=== PATIENT | male | born 1935 | race Caucasian/White ===

== ENCOUNTER 2017-04-15 10:00 | Outpatient (RCR) | payer MEDICARE, SELFPAY ==
[2017-03-31 08:49] VITALS: BP 131/63; PULSE 95; RESP 18; TEMP 36.8; BMI 48.6
--- NOTE | 2017-03-31 10:12 | PCM.WC.HP ---
(1) Pressure ulcer, heel, right, unstageable Status: Chronic Current Visit: Yes Code(s): L89.610 - Pressure ulcer of right heel, unstageable (2) Wound of left leg Status: Acute Current Visit: Yes Qualifiers: Encounter type: initial encounter Qualified Code(s): S81.802A - Unspecified open wound, left lower leg, initial encounter Code(s): S81.802A - Unspecified open wound, left lower leg, initial encounter (3) Diabetes mellitus Status: Chronic Current Visit: Yes Qualifiers: Diabetes mellitus type: type 2 Diabetes mellitus complication status: with circulatory complication Diabetes mellitus complication detail: with peripheral angiopathy with gangrene Code(s): E11.9 - Type 2 diabetes mellitus without complications (4) Hypertension Status: Chronic Current Visit: No Qualifiers: Hypertension type: essential hypertension Qualified Code(s): I10 - Essential (primary) hypertension Code(s): I10 - Essential (primary) hypertension (5) Physical deconditioning Status: Chronic Current Visit: Yes Code(s): R53.81 - Other malaise (6) A-fib Status: Chronic Current Visit: No Qualifiers: Atrial fibrillation type: chronic Qualified Code(s): I48.2 - Chronic atrial fibrillation Code(s): I48.91 - Unspecified atrial fibrillation (7) CAD (coronary artery disease) Status: Chronic Current Visit: No Qualifiers: Coronary Disease-Associated Artery/Lesion type: [place] artery [place] vs. transplanted heart: [place] heart Code(s): I25.10 - Atherosclerotic heart disease of [place] coronary artery without angina pectoris (8) PAD (peripheral artery disease) Status: Chronic Current Visit: Yes Code(s): I73.9 - Peripheral vascular disease, unspecified (9) Hyperlipidemia Status: Chronic Current Visit: No Code(s): E78.5 - Hyperlipidemia, unspecified (10) History of prostate cancer Status: Chronic Current Visit: No Code(s): Z85.46 - Personal history of malignant neoplasm of prostate (11) History of SD (myocardial infarction) Status: Chronic Current Visit: No Code(s): I25.2 - Old myocardial infarction History of Present Illness Date of Service: 03/31/17 Chief Complaint: Ulcerations/wounds of both lower extremities History of Wound: This is an 81-year-old male who is a resident of [facility] in [place], [place]. The patient is deconditioned, and nonambulatory. He is said to have a good appetite. He sleeps on a flat mattress at night. He has a large, necrotic pressure ulceration on the right heel, which has been present for approximately 3 months at the time of his initial evaluation. Also has a traumatic wound on the left anterior tibial surface, said to be present for approximately 3 weeks. He is currently taking Keflex 500 mg p.o. 3 times daily as prescribed by his primary care physician relative to an eye infection. The patient has undergone a battery of diagnostic tests recently. Laboratory studies were performed on February 17, 2017, with results as follows: White blood count 7.4, hemoglobin 11.7, crit 36.4, platelets 397,000, glucose 112, BUN 13, creatinine 0.64, calcium 8.7, sodium 139, potassium 4.3, chloride 103. Radiographs of the right heel, performed on March 27, 2017, revealed findings are concerning for developing osteomyelitis in the posterior inferior calcaneus subjacent to the location of the soft tissue defect and moderate soft tissue swelling. A contrast-enhanced MRI was recommended, but has not been performed. Past Medical History Past Medical History: Chronic Problems Pressure ulcer, heel, right, unstageable (Chronic) Diabetes mellitus (Chronic) Hypertension (Chronic) Physical deconditioning (Chronic) A-fib (Chronic) CAD (coronary artery disease) (Chronic) PAD (peripheral artery disease) (Chronic) Hyperlipidemia (Chronic) History of prostate cancer (Chronic) History of SD (myocardial infarction) (Chronic) Past Medical History: Patient has a history of diabetes mellitus, coronary artery disease with prior myocardial infarction, hypertension, atrial fibrillation, peripheral arterial occlusive disease, lipidemia, and prostate cancer. His history is negative for congestive heart failure, cerebrovascular accident, renal disease, pulmonary disease, and thyroid disease. Surgical History: - - The patient has previously undergone coronary revascularization, right total hip replacement, radiation for prostate cancer, and right lower extremity bypass revascularization Home Medications: Ambulatory Orders Medication Instructions Recorded Acidophilus 1 capsule PO TID 03/31/17 Aspirin 81 mg PO DAILY 03/31/17 Atorvastatin Calcium 20 mg PO DAILY 03/31/17 Calcium 500-Vit D3 200 Tablet 1 mg PO BID 03/31/17 Cholecalciferol (VIT D3) 2,000 iu PO DAILY 03/31/17 Colace 100 mg PO DAILY 03/31/17 Coumadin 5 mg PO DAILY 03/31/17 Glimepiride 2 mg PO DAILY 03/31/17 Keflex 500 mg PO TID 03/31/17 Metoprolol Succinate 25 mg PO DAILY 03/31/17 Milk Of Magnesia 400 mg PO PRN PRN 03/31/17 Multiple Vitamins 1 tablet PO DAILY 03/31/17 Oxybutynin Chloride 10 mg PO DAILY 03/31/17 Systane Gel Eye Drops 1 drop OPHTHALMIC 4X/DAY 03/31/17 Tamsulosin HCl 0.4 mg PO DAILY 03/31/17 Tylenol 650 mg PO Q4H PRN 03/31/17 Vigamox Ophth 1 drop OPHTHALMIC 4X/DAY 03/31/17 - Family History Maternal - - Patient's father at the age of 91 with a history of prostate cancer and myocardial infarction. Patient's mother at age of 88 with a history of pancreatic cancer. Social History: Patient denies the use of alcohol and tobacco products. Is , but his suffers from Alzheimer's disease. He resides at [facility] in [place], [place]. Lives: Snf Smoking Status: Former smoker Tobacco Use: Non-smoker Alcohol: None Drugs: None Review of Systems Constitutional: Denies: Chills, Fever, Weight Change Eyes: Denies: Pain, Vision Change HEENT: Denies: Difficulty Hearing, Difficulty Swallowing, Sinus Congestion Cardiovascular: Denies: Chest Pain, Palpitations Respiratory: Denies: Cough, Shortness of Breath Gastrointestinal: Denies: Diarrhea, Nausea, Vomiting Genitourinary: Denies: Dysuria, Hematuria Endocrine: Denies: Heat/ Cold Intolerance, Polydipsia, Polyuria Hematologic/ Lymphatic: Denies: Easy Bruising, Easy Bleeding - Physical Exam Vital Signs Temp Pulse Resp BP 98.3 F 95 18 131/63 H 03/31/17 08:49 03/31/17 08:49 03/31/17 08:49 03/31/17 08:49 General: Alert, Oriented x3, Cooperative, No apparent distress, Well developed, Well nourished, - - She appears somewhat deconditioned and weak HEENT: Atraumatic, PERRLA, EOMI, Normocephalic Oral: Moist Mucosa, No Gingival or Mucosal Lesions/ Ulcerations, - - She wears upper dentures Neck: Supple, No JVD, Negative Carotid Bruits, Negative Hepatojugular Reflux, No Nodes, No Nuchal Rigidity, Trachea Midline Lungs: Clear to auscultation, Normal air movement, No rhonchi, No wheeze, No rales Cardiovascular: Regular rate, Regular Rhythm, Normal S1, Normal S2, No murmurs, No Ectopic Activity Abdomen: Soft, Non Tender, Non-Distended Extremities: No clubbing, No cyanosis, No edema, No Calf Tenderness, - - Faint hyperpigmentation is noted in the distal lower extremities bilaterally. There is no significant swelling or edema on either side. A large necrotic pressure ulceration is noted on the right heel. Options are documented elsewhere. There is slight associated erythema. Aerobic and anaerobic cultures have been obtained by swab. There is also a superficial wound on the left anterior tibial surface, which is pink and healthy in appearance. At this site, there is no sign of infection or cellulitis. Dimensions are documented elsewhere. Wound Measurements and Assessment - Nurse 1 - General Ulcer Measurement Start: 03/31/17 08:47 Freq: Status: Active Protocol: Activity Type Activity Date Activity User E-Sign Co-Sign Detail Recorded Client Recorded Date Recorded By Document 03/31/17 08:49 DL [id number] 03/31/17 09:04 DL 03/31/17 08:49 Wound Center Nurse 1 [Ulcer Assessment Protocol: WC.WD.LOC] #2 R Heel -Combined with other wound No -Current Size (cm) - Length 4.5 -Current Size (cm) - Width 6 -Current Size (cm) - Depth 0.1 -Total Square Cm 27.0 -Photo Taken Yes -Epithelialization None Present -Tunneling No -Undermining/Tunneling No -Circular Undermining No -Classification - Thickness Unclassifiable (Eschar Covered ) -Classification - Pressure Ulcer Unstageable -Exudate Amt Small (1-33%) -Exudate Type Serosanguineous -Wound Margin Distinct, Outline Attached -Granulation Amt Small (1-33%) -Granulation Quality [place] -Slough/Fibrin Yes -Necrosis Amt Large (67-100%) -Necrotic Tissue Type Eschar -Structure Exposed N/A -Texture (Abi-wound Skin Appearance) Localized Edema -Moisture (Abi-wound Skin Appearance Maceration ) Dry/Scaly -Color (Abi-wound Skin Appearance) Erythema Hemosiderin Staining -Temperature (Abi-wound Skin No Abnormality Appearance) (Pt Warm) -Tenderness on Palpation (Abi-wound Yes Skin Appearance) -Ulcer Cleansing Rinsed/ Irrigated with Saline -Foul Odor after Cleansing Yes -Anesthetic Used 4% Lidocaine Solution #1 L [place] -Current Size (cm) - Length 2 -Current Size (cm) - Width 1.7 -Current Size (cm) - Depth 0.1 -Total Square Cm 3.4 -Photo Taken Yes -Epithelialization Small 1-33% -Tunneling No -Undermining/Tunneling No -Circular Undermining No -Classification - Thickness Full Thickness without Exposed Support Structure -Exudate Amt Small (1-33%) -Exudate Type Serosanguineous -Wound Margin Distinct, Outline Attached -Granulation Amt Medium (34-66%) -Granulation Quality Red -Necrosis Amt Medium (34-66%) -Necrotic Tissue Type Adherent Slough -Structure Exposed N/A -Texture (Abi-wound Skin Appearance) No Abnormality -Moisture (Abi-wound Skin Appearance No Abnormality ) -Color (Abi-wound Skin Appearance) Erythema Hemosiderin Staining -Temperature (Abi-wound Skin No Abnormality Appearance) (Pt Warm) -Tenderness on Palpation (Abi-wound No Skin Appearance) -Ulcer Cleansing Wound Cleanser -Foul Odor after Cleansing No -Anesthetic Used 4% Lidocaine Solution [Edema Assessment] -Lower Limb Edema Present No -Right Calf (cm) 32.5 -Right Ankle (cm) 20.5 -Left Calf (cm) 32 -Point of Measurement (cm from the 19 medial instep) Musculoskeletal: Muscle Wasting Neurological: Cranial nerves II-XII grossly intact, Neuro grossly intact Psych/Mental Status: Normal Affect, Appropriate, Alert and oriented to time, place, person, mood and affect Debridement Note Laterality: Right - Heel Type of Debridement: Excisional debridement Anesthesia Used: 4% Lidocaine Solution Depth: Down to and including healthy tissue, in the subcutaneous layer Percentage of wound debrided: 100 Instrument Used: #11 blade, Forceps Tissue Removed: Necrotic eschar Severity: Fat Layer Exposed Amount of bleeding with debridement: None Patient tolerated procedure well Attention was directed to the large necrotic eschar heel. Usually, using an 11 scalpel blade, the eschar was scored in anticipation of the use of collagenase Santyl topically. Thereafter, approximately half of the large eschar was excised using an 11 scalpel blade and forceps. Under the eschar was relatively healthy pink tissue, though no bleeding was encountered, suggesting ischemia. Assessment/Plan Active Problems Pressure ulcer, heel, right, unstageable (Chronic) Wound of left leg (Acute) Diabetes mellitus (Chronic) Physical deconditioning (Chronic) PAD (peripheral artery disease) (Chronic) Assessment: This is an 81-year-old male resident of [facility] in [place], [place]. He is severely deconditioned, and nonambulatory. He has an ulceration on the right heel, which appears pressurerelated. It is large and necrotic. A significant amount of the necrotic tissue was excised in the wound healing center today. Wound on the left anterior tibial surface appears to be superficial, and relatively healthy. The patient has a history of peripheral arterial occlusive disease, likely to be an issue relative to wound healing potential. This is to be evaluated further. Plan: Cultures have been obtained relative to the patient's right heel ulceration. We will await the results of aerobic and anaerobic swab cultures. Offloading measures are to be implemented, in particular with respect to the right heel ulceration, which appears to be pressure-related. A padded boot is to be used. Patient has been advised to optimize his nutrition, and his appetite is said to be good. Supplements have been recommended. A noninvasive lower extremity arterial study will be obtained in the near future, to assess the status of the patient's lower extremity arterial perfusion. Routine laboratory studies will be also obtained, a nutritional labs, which have not previously been obtained. Laboratory results will be reviewed once available. In light of the findings on recent radiographs, suggesting possible osteomyelitis of the calcaneus, we are to seek consultation with Dr. Castaneda, roll cleaner. Patient is to return on a weekly basis routine wound management. Santyl is to be used topically relative to the right heel ulceration, as well as offloading measures. Collagen hydrogel is to be used topically relative to the left lower extremity wound. Optimization of the patient's diabetes mellitus has been recommended. Influenza vaccine was not administered today. The patient is not a smoker. The patient's weight is 154 pounds. He stands 5 feet 7 inches tall. His BMI is 24.1, which is normal.
--- NOTE | 2017-03-31 10:22 | HP.PCM_ITS ---
(1) Pressure ulcer, heel, right, unstageable Status: Chronic Current Visit: Yes Code(s): L89.610 - Pressure ulcer of right heel, unstageable (2) Wound of left leg Status: Acute Current Visit: Yes Qualifiers: Encounter type: initial encounter Qualified Code(s): S81.802A - Unspecified open wound, left lower leg, initial encounter Code(s): S81.802A - Unspecified open wound, left lower leg, initial encounter (3) Diabetes mellitus Status: Chronic Current Visit: Yes Qualifiers: Diabetes mellitus type: type 2 Diabetes mellitus complication status: with circulatory complication Diabetes mellitus complication detail: with peripheral angiopathy with gangrene Code(s): E11.9 - Type 2 diabetes mellitus without complications (4) Hypertension Status: Chronic Current Visit: No Qualifiers: Hypertension type: essential hypertension Qualified Code(s): I10 - Essential (primary) hypertension Code(s): I10 - Essential (primary) hypertension (5) Physical deconditioning Status: Chronic Current Visit: Yes Code(s): R53.81 - Other malaise (6) A-fib Status: Chronic Current Visit: No Qualifiers: Atrial fibrillation type: chronic Qualified Code(s): I48.2 - Chronic atrial fibrillation Code(s): I48.91 - Unspecified atrial fibrillation (7) CAD (coronary artery disease) Status: Chronic Current Visit: No Qualifiers: Coronary Disease-Associated Artery/Lesion type: [place] artery [place] vs. transplanted heart: [place] heart Code(s): I25.10 - Atherosclerotic heart disease of [place] coronary artery without angina pectoris (8) PAD (peripheral artery disease) Status: Chronic Current Visit: Yes Code(s): I73.9 - Peripheral vascular disease, unspecified (9) Hyperlipidemia Status: Chronic Current Visit: No Code(s): E78.5 - Hyperlipidemia, unspecified (10) History of prostate cancer Status: Chronic Current Visit: No Code(s): Z85.46 - Personal history of malignant neoplasm of prostate (11) History of [place] (myocardial infarction) Status: Chronic Current Visit: No Code(s): I25.2 - Old myocardial infarction History of Present Illness Date of Service: 03/31/17 Chief Complaint: Ulcerations/wounds of both lower extremities History of Wound: This is an 81-year-old male who is a resident of [facility] in [place], [place]. The patient is deconditioned, and nonambulatory. He is said to have a good appetite. He sleeps on a flat mattress at night. He has a large, necrotic pressure ulceration on the right heel, which has been present for approximately 3 months at the time of his initial evaluation. Also has a traumatic wound on the left anterior tibial surface, said to be present for approximately 3 weeks. He is currently taking Keflex 500 mg p.o. 3 times daily as prescribed by his primary care physician relative to an eye infection. The patient has undergone a battery of diagnostic tests recently. Laboratory studies were performed on February 17, 2017 , with results as follows: White blood count 7.4, hemoglobin 11.7, crit 36.4, platelets 397,000, glucose 112, BUN 13, creatinine 0.64, calcium 8.7, sodium 139 , potassium 4.3, chloride 103. Radiographs of the right heel, performed on March 27, 2017, revealed findings are concerning for developing osteomyelitis in the posterior inferior calcaneus subjacent to the location of the soft tissue defect and moderate soft tissue swelling. A contrast-enhanced MRI was recommended, but has not been performed. Past Medical History Past Medical History: Chronic Problems Pressure ulcer, heel, right, unstageable (Chronic) Diabetes mellitus (Chronic) Hypertension (Chronic) Physical deconditioning (Chronic) A-fib (Chronic) CAD (coronary artery disease) (Chronic) PAD (peripheral artery disease) (Chronic) Hyperlipidemia (Chronic) History of prostate cancer (Chronic) History of [place] (myocardial infarction) (Chronic) Past Medical History: Patient has a history of diabetes mellitus, coronary artery disease with prior myocardial infarction, hypertension, atrial fibrillation, peripheral arterial occlusive disease, lipidemia, and prostate cancer. His history is negative for congestive heart failure, cerebrovascular accident, renal disease, pulmonary disease, and thyroid disease. Surgical History: - - The patient has previously undergone coronary revascularization, right total hip replacement, radiation for prostate cancer, and right lower extremity bypass revascularization Home Medications: Ambulatory Orders Medication Instructions Recorded Acidophilus 1 capsule PO TID 03/31/17 Aspirin 81 mg PO DAILY 03/31/17 Atorvastatin Calcium 20 mg PO DAILY 03/31/17 Calcium 500-Vit D3 200 Tablet 1 mg PO BID 03/31/17 Cholecalciferol (VIT D3) 2,000 iu PO DAILY 03/31/17 Colace 100 mg PO DAILY 03/31/17 Coumadin 5 mg PO DAILY 03/31/17 Glimepiride 2 mg PO DAILY 03/31/17 Keflex 500 mg PO TID 03/31/17 Metoprolol Succinate 25 mg PO DAILY 03/31/17 Milk Of Magnesia 400 mg PO PRN PRN 03/31/17 Multiple Vitamins 1 tablet PO DAILY 03/31/17 Oxybutynin Chloride 10 mg PO DAILY 03/31/17 Systane Gel Eye Drops 1 drop OPHTHALMIC 4X/DAY 03/31/17 Tamsulosin HCl 0.4 mg PO DAILY 03/31/17 Tylenol 650 mg PO Q4H PRN 03/31/17 Vigamox Ophth 1 drop OPHTHALMIC 4X/DAY 03/31/17 - Family History Maternal - - Patient's father at the age of 91 with a history of prostate cancer and myocardial infarction. Patient's mother at age of 88 with a history of pancreatic cancer. Social History: Patient denies the use of alcohol and tobacco products. Is , but his suffers from Alzheimer's disease. He resides at [facility] in [place], [place]. Lives: [facility] Smoking Status: Former smoker Tobacco Use: Non-smoker Alcohol: None Drugs: None Review of Systems Constitutional: Denies: Chills, Fever, Weight Change Eyes: Denies: Pain, Vision Change HEENT: Denies: Difficulty Hearing, Difficulty Swallowing, Sinus Congestion Cardiovascular: Denies: Chest Pain, Palpitations Respiratory: Denies: Cough, Shortness of Breath Gastrointestinal: Denies: Diarrhea, Nausea, Vomiting Genitourinary: Denies: Dysuria, Hematuria Endocrine: Denies: Heat/ Cold Intolerance, Polydipsia, Polyuria Hematologic/ Lymphatic: Denies: Easy Bruising, Easy Bleeding - Physical Exam Vital Signs Temp Pulse Resp BP 98.3 F 95 18 131/63 H 03/31/17 08:49 03/31/17 08:49 03/31/17 08:49 03/31/17 08:49 General: Alert, Oriented x3, Cooperative, No apparent distress, Well developed, Well nourished, - - She appears somewhat deconditioned and weak HEENT: Atraumatic, PERRLA, EOMI, Normocephalic Oral: Moist Mucosa, No Gingival or Mucosal Lesions/ Ulcerations, - - She wears upper dentures Neck: Supple, No JVD, Negative Carotid Bruits, Negative Hepatojugular Reflux, No Nodes, No Nuchal Rigidity, Trachea Midline Lungs: Clear to auscultation, Normal air movement, No rhonchi, No wheeze, No rales Cardiovascular: Regular rate, Regular Rhythm, Normal S1, Normal S2, No murmurs, No Ectopic Activity Abdomen: Soft, Non Tender, Non-Distended Extremities: No clubbing, No cyanosis, No edema, No Calf Tenderness, - - Faint hyperpigmentation is noted in the distal lower extremities bilaterally. There is no significant swelling or edema on either side. A large necrotic pressure ulceration is noted on the right heel. Options are documented elsewhere. There is slight associated erythema. Aerobic and anaerobic cultures have been obtained by swab. There is also a superficial wound on the left anterior tibial surface, which is pink and healthy in appearance. At this site, there is no sign of infection or cellulitis. Dimensions are documented elsewhere. Wound Measurements and Assessment - Nurse 1 - General Ulcer Measurement Start: 03/31/17 08:47 Freq: Status: Active Protocol: Activity Type Activity Date Activity User E-Sign Co-Sign Detail Recorded Client Recorded Date Recorded By Document 03/31/17 08:49 DL [id number] 03/31/17 09:04 DL 03/31/17 08:49 Wound Center Nurse 1 [Ulcer Assessment Protocol: WC.WD.LOC] #2 R Heel -Combined with other wound No -Current Size (cm) - Length 4.5 -Current Size (cm) - Width 6 -Current Size (cm) - Depth 0.1 -Total Square Cm 27.0 -Photo Taken Yes -Epithelialization None Present -Tunneling No -Undermining/Tunneling No -Circular Undermining No -Classification - Thickness Unclassifiable (Eschar Covered ) -Classification - Pressure Ulcer Unstageable -Exudate Amt Small (1-33%) -Exudate Type Serosanguineous -Wound Margin Distinct, Outline Attached -Granulation Amt Small (1-33%) -Granulation Quality [place] -Slough/Fibrin Yes -Necrosis Amt Large (67-100%) -Necrotic Tissue Type Eschar -Structure Exposed N/A -Texture (Abi-wound Skin Appearance) Localized Edema -Moisture (Abi-wound Skin Appearance Maceration ) Dry/Scaly -Color (Abi-wound Skin Appearance) Erythema Hemosiderin Staining -Temperature (Abi-wound Skin No Abnormality Appearance) (Pt Warm) -Tenderness on Palpation (Abi-wound Yes Skin Appearance) -Ulcer Cleansing Rinsed/ Irrigated with Saline -Foul Odor after Cleansing Yes -Anesthetic Used 4% Lidocaine Solution #1 L Espar[place] -Current Size (cm) - Length 2 -Current Size (cm) - Width 1.7 -Current Size (cm) - Depth 0.1 -Total Square Cm 3.4 -Photo Taken Yes -Epithelialization Small 1-33% -Tunneling No -Undermining/Tunneling No -Circular Undermining No -Classification - Thickness Full Thickness without Exposed Support Structure -Exudate Amt Small (1-33%) -Exudate Type Serosanguineous -Wound Margin Distinct, Outline Attached -Granulation Amt Medium (34-66%) -Granulation Quality Red -Necrosis Amt Medium (34-66%) -Necrotic Tissue Type Adherent Slough -Structure Exposed N/A -Texture (Abi-wound Skin Appearance) No Abnormality -Moisture (Abi-wound Skin Appearance No Abnormality ) -Color (Abi-wound Skin Appearance) Erythema Hemosiderin Staining -Temperature (Abi-wound Skin No Abnormality Appearance) (Pt Warm) -Tenderness on Palpation (Abi-wound No Skin Appearance) -Ulcer Cleansing Wound Cleanser -Foul Odor after Cleansing No -Anesthetic Used 4% Lidocaine Solution [Edema Assessment] -Lower Limb Edema Present No -Right Calf (cm) 32.5 -Right Ankle (cm) 20.5 -Left Calf (cm) 32 -Point of Measurement (cm from the 19 medial instep) Musculoskeletal: Muscle Wasting Neurological: Cranial nerves II-XII grossly intact, Neuro grossly intact Psych/Mental Status: Normal Affect, Appropriate, Alert and oriented to time, place, person, mood and affect Debridement Note Laterality: Right - Heel Type of Debridement: Excisional debridement Anesthesia Used: 4% Lidocaine Solution Depth: Down to and including healthy tissue, in the subcutaneous layer Percentage of wound debrided: 100 Instrument Used: #11 blade, Forceps Tissue Removed: Necrotic eschar Severity: Fat Layer Exposed Amount of bleeding with debridement: None Patient tolerated procedure well Attention was directed to the large necrotic eschar heel. Usually, using an 11 scalpel blade, the eschar was scored in anticipation of the use of collagenase Santyl topically. Thereafter, approximately half of the large eschar was excised using an 11 scalpel blade and forceps. Under the eschar was relatively healthy pink tissue, though no bleeding was encountered, suggesting ischemia. Assessment/Plan Active Problems Pressure ulcer, heel, right, unstageable (Chronic) Wound of left leg (Acute) Diabetes mellitus (Chronic) Physical deconditioning (Chronic) PAD (peripheral artery disease) (Chronic) Assessment: This is an 81-year-old male resident of [facility] in [place], [place]. He is severely deconditioned, and nonambulatory. He has an ulceration on the right heel, which appears pressure?related. It is large and necrotic. A significant amount of the necrotic tissue was excised in the wound healing center today. Wound on the left anterior tibial surface appears to be superficial, and relatively healthy. The patient has a history of peripheral arterial occlusive disease, likely to be an issue relative to wound healing potential. This is to be evaluated further. Plan: Cultures have been obtained relative to the patient's right heel ulceration. We will await the results of aerobic and anaerobic swab cultures. Offloading measures are to be implemented, in particular with respect to the right heel ulceration, which appears to be pressure-related. A padded boot is to be used. Patient has been advised to optimize his nutrition, and his appetite is said to be good. Supplements have been recommended. A noninvasive lower extremity arterial study will be obtained in the near future, to assess the status of the patient's lower extremity arterial perfusion. Routine laboratory studies will be also obtained, a nutritional labs, which have not previously been obtained. Laboratory results will be reviewed once available. In light of the findings on recent radiographs, suggesting possible osteomyelitis of the calcaneus, we are to seek consultation with Dr. Castaneda, pastoral ministries professor. Patient is to return on a weekly basis routine wound management. Santyl is to be used topically relative to the right heel ulceration, as well as offloading measures. Collagen hydrogel is to be used topically relative to the left lower extremity wound. Optimization of the patient's diabetes mellitus has been recommended. Influenza vaccine was not administered today. The patient is not a smoker. The patient's weight is 154 pounds. He stands 5 feet 7 inches tall. His BMI is 24.1, which is normal.
[2017-03-31 12:44] LABS: Hematocrit 40.3 % (40-54); Hemoglobin 12.2 g/dl (13.0-16.5); Mean Corp Hgb Conc 30.3 g/gl (32-36); Mean Corpuscular Hgb 25.7 pg (27.0-32.0); Mean Platelet Vol. 9.7 fl (6.2-12.0); Platelet Count 447 K/mm3 (150-450); RBC Distribution Width CV 16.5 % (11.6-14.6); RBC Distribution Width SD 51.1 fl (35.1-43.9); Red Blood Count 4.74 M/mm3 (4.6-6.2); White Blood Count 9.7 K/mm3 (4.4-11.0)
[2017-03-31 12:46] LABS: Scan Indicated on CBC? Y/N NO
[2017-03-31 13:17] LABS: ALB/GLOB Ratio 0.6 RATIO (0.9-2.4); AST(SGOT) 21 U/L (15-37); Alanine Aminotransfer ALT/SGPT 30 U/L (16-61); Albumin, Serum 2.5 g/dL (3.2-5.0); Alkaline Phosphatase 106 U/L (45-117); Anion Gap 6 (5-15); BUN 17 mg/dL (7-18); BUN/Creat Ratio 33.2 RATIO (10-20); Calcium,Total 8.8 mg/dL (8.5-10.1); Chloride 102 mmol/L (98-107); Creatinine, Serum 0.51 mg/dL (0.70-1.30); EST Glomerular Filtration Rate 165 mL/min (>60); Est Glom Filt Rate - Afr Amer 199 mL/min (>60); Estimated Creatinine Clearance 59.82 ml/min; Globulin 4.1 g/dL (2.2-4.2); Glucose 193 mg/dL (74-106); Potassium 3.8 mmol/L (3.5-5.1); Prealbumin 13.6 mg/dL (20.0-40.0); Protein, Total 6.6 g/dL (6.4-8.2); Sodium Level 139 mmol/L (136-145)
[2017-04-08 14:10] VITALS: BP 136/67; PULSE 67; RESP 18; TEMP 35.4; BMI 48.6
--- NOTE | 2017-04-08 15:22 | PCM.WC.PN ---
(1) Osteomyelitis of right foot Status: Suspected Current Visit: Yes Code(s): M86.9 - Osteomyelitis, unspecified (2) PAD (peripheral artery disease) Status: Chronic Current Visit: Yes Code(s): I73.9 - Peripheral vascular disease, unspecified (3) Ulcer of right lower extremity with fat layer exposed Status: Chronic Current Visit: Yes Code(s): L97.912 - Non-pressure chronic ulcer of unspecified part of right lower leg with fat layer exposed (4) Ulcer of left lower extremity with fat layer exposed Status: Chronic Current Visit: Yes Code(s): L97.922 - Non-pressure chronic ulcer of unspecified part of left lower leg with fat layer exposed (5) Pressure ulcer, unstageable, with eschar Status: Chronic Current Visit: Yes Code(s): L89.95 - Pressure ulcer of unspecified site, unstageable; R23.4 - Changes in skin texture (6) Type 2 diabetes mellitus with diabetic polyneuropathy Status: Chronic Current Visit: Yes Code(s): E11.42 - Type 2 diabetes mellitus with diabetic polyneuropathy (7) Malnutrition Status: Suspected Current Visit: Yes Code(s): E46 - Unspecified protein-calorie malnutrition (8) Physical deconditioning Status: Chronic Current Visit: Yes Code(s): R53.81 - Other malaise Type of Wound Date of Service: 04/08/17 Chief Complaint: Ulcerations/wounds of both lower extremities History of Wound: This is an 81-year-old male who is a resident of [facility] in [place], [place]. The patient is deconditioned, and nonambulatory. H he was referred from Dr. Kaba for podiatric evaluation workup of osteomyelitis of the heel which is appreciated. He denies recent injury. He denies fever, chill, nausea, vomiting, odor, or redness. He did obtain his vascular noninvasive arterial studies and asked about the results today. He did have an x-ray obtained however only the report is viewable. He was previously treated for an infection that was growing Pseudomonas and MRSA. It is noted he cannot take Bactrim or doxycycline due to conflict with Coumadin causing elevated INR and other reaction. He is with his daughter today. Progress of Wound: Stable - Physical Exam Vital Signs Temp Pulse Resp BP 95.7 F L 67 18 136/67 H 04/08/17 14:10 04/08/17 14:10 04/08/17 14:10 04/08/17 14:10 General: Alert, Oriented x3, Cooperative Extremities: No Calf Tenderness - Negative Vera bilateral, Diminished Peripheral Pulses, Edema - Mild bilateral lower extremity, - - Delayed cap refill time bilateral feet. The temperature of the foot to touch is same from the toes to the heel Skin: Ulcer/ Wound - No purulence, no erythema, no streaking, no odor. The leg wounds are granular with mild fibrous tissue. The right heel wound does have exposed fat eschar. There is no probe to bone. This is very devitalized., - - The peripheral skin is hairless and atrophic bilateral Wound Measurements and Assessment WC - Nurse 1 - General Ulcer Measurement Start: 03/31/17 08:47 Freq: Status: Active Protocol: Activity Type Activity Date Activity User E-Sign Co-Sign Detail Recorded Client Recorded Date Recorded By Document 04/08/17 14:10 [facility] [id number] 04/08/17 14:23 [facility] 04/08/17 14:10 Wound Center Nurse 1 [Ulcer Assessment] #3- RT ESPARZA -Combined with other wound No -Current Size (cm) - Length 1.3 -Current Size (cm) - Width 0.5 -Current Size (cm) - Depth 0.1 -Total Square Cm 0.65 -Date of Last Picture (Recall this 04/08/17 field) -Photo Taken Yes -Epithelialization None Present -Tunneling No -Undermining/Tunneling No -Exudate Amt Small (1-33%) -Exudate Type Serosanguineous -Wound Margin Distinct, Outline Attached -Granulation Amt Medium (34-66%) -Granulation Quality Red -Slough/Fibrin Yes -Necrosis Amt Small (1-33%) -Necrotic Tissue Type Adherent Slough -Structure Exposed None/Limited to Skin Breakdown -Texture (Abi-wound Skin Appearance) Assessed -Moisture (Abi-wound Skin Appearance Dry/Scaly ) -Color (Abi-wound Skin Appearance) Erythema -Temperature (Abi-wound Skin No Abnormality Appearance) (Pt Warm) -Tenderness on Palpation (Abi-wound No Skin Appearance) -Ulcer Cleansing Rinsed/ Irrigated with Saline -Foul Odor after Cleansing No -Anesthetic Used 4% Lidocaine Solution #2 R Heel -Combined with other wound No -Current Size (cm) - Length 4 -Current Size (cm) - Width 5.6 -Current Size (cm) - Depth 0.3 -Total Square Cm 22.4 -Photo Taken No -Epithelialization None Present -Tunneling No -Undermining/Tunneling No -Exudate Amt Small (1-33%) -Exudate Type Serosanguineous -Wound Margin Distinct, Outline Attached -Granulation Amt None Present (0 %) -Slough/Fibrin Yes -Necrosis Amt Large (67-100%) -Necrotic Tissue Type Adherent Slough -Structure Exposed N/A -Texture (Abi-wound Skin Appearance) Scarring -Moisture (Abi-wound Skin Appearance Dry/Scaly ) -Color (Abi-wound Skin Appearance) Erythema -Temperature (Abi-wound Skin No Abnormality Appearance) (Pt Warm) -Tenderness on Palpation (Abi-wound Yes Skin Appearance) -Ulcer Cleansing Rinsed/ Irrigated with Saline -Foul Odor after Cleansing No -Anesthetic Used 4% Lidocaine Solution #1 L [place] -Combined with other wound No -Current Size (cm) - Length 1.5 -Current Size (cm) - Width 1.1 -Current Size (cm) - Depth 0.1 -Total Square Cm 1.65 -Photo Taken No -Epithelialization None Present -Tunneling No -Undermining/Tunneling No -Exudate Amt Small (1-33%) -Exudate Type Serosanguineous -Wound Margin Distinct, Outline Attached -Granulation Amt Large (67-100%) -Granulation Quality Red -Slough/Fibrin No -Necrosis Amt None Present (0 %) -Structure Exposed None/Limited to Skin Breakdown -Texture (Abi-wound Skin Appearance) Assessed -Moisture (Abi-wound Skin Appearance Dry/Scaly ) -Color (Abi-wound Skin Appearance) Erythema -Temperature (Abi-wound Skin No Abnormality Appearance) (Pt Warm) -Tenderness on Palpation (Abi-wound No Skin Appearance) -Ulcer Cleansing Rinsed/ Irrigated with Saline -Foul Odor after Cleansing No -Anesthetic Used 4% Lidocaine Solution Musculoskeletal: No Tenderness to Palpation of Joints or Extremities, Muscle Wasting, Tenderness - Mild pain with heel manipulation wound, - - Muscle atrophy noted bilateral Neurological: - Psych/Mental Status: Normal Affect, Appropriate - Diminished sensation light touch bilateral Debridement Note No debridement was completed today - Due to lack of perfusion Assessment/Plan Active Problems Pressure ulcer, heel, right, unstageable (Chronic) Wound of left leg (Acute) Diabetes mellitus (Chronic) Physical deconditioning (Chronic) PAD (peripheral artery disease) (Chronic) Ulcer of right lower extremity with fat layer exposed (Chronic) Ulcer of left lower extremity with fat layer exposed (Chronic) Pressure ulcer, unstageable, with eschar (Chronic) Type 2 diabetes mellitus with diabetic polyneuropathy (Chronic) Assessment: Ulcer right leg with fat exposed. Ulcer left leg with fat exposed. Unstageable eschar pressure ulcer with arterial etiology to right heel. Rule out osteomyelitis of right calcaneus. Diabetes with neuropathy. Peripheral vascular disease. Gait impairment. Malnutrition suspected. Other comorbidities. On anticoagulation chronic use Plan: I reviewed and discussed the case with the patient today. His diagnostic data was reviewed. Cultures have been obtained relative to the patient's right heel ulceration which demonstrated Pseudomonas and MRSA previous growth. He was recently on Levaquin. I recommend infectious disease consultation and hopefully this can occur next Thursday. Offloading measures were implemented, in particular with respect to the right heel ulceration, which appears to be pressure-related. A padded boot is to be used. He was advised to hang his heel over pillows while resting in bed to float in the air to ensure proper offloading. Patient has been advised to optimize his nutrition, and his appetite is said to be good. Supplements have been recommended; a prescription for Gregorio was provided today. The purpose and proper use and expectations were discussed. A noninvasive lower extremity arterial study in which right monophasic artery was noted. The ABIs were not calculated due to noncompressibility and it looks like he has vascular disease. A referral to vascular surgery, Dr. Vincent was provided. He does not have leukocytosis and his white blood cell count 8.7, sedimentation rate 47, albumin 2.3, and prealbumin 13.6. in light of the findings on recent radiographs, suggesting possible osteomyelitis of the calcaneus. I requested a CD to review the actual images. An MRI or other advanced imaging will be considered pending the x-ray review and clinical progress. Patient is to return on a weekly basis routine wound management. Santyl is to be used topically relative to the right heel ulceration, as well as offloading measures. Collagen hydrogel is to be used topically relative to the left lower extremity wound. He understands he is at risk for limb loss and further workup is warranted. I answered all his questions. To return to the wound care center in 1 week or sooner if there are any questions or concerns.
[2017-04-08 16:41] LABS: Absolute Lymphocyte Count 0.84 X10^3/ul (0.83-4.51); Absolute Neutrophil Count 6.6 X10^3/uL (2.0-7.7); Basophil# 0.04 X10^3/uL; Basophil% 0.5 % (0-1); Eosinophil# 0.17 X10^3/uL; Hematocrit 38.7 % (40-54); Hemoglobin 12.1 g/dl (13.0-16.5); Lymphocyte # 0.84 X10^3/ul (4.0); Lymphocyte % 9.6 % (19-41); Mean Corp Hgb Conc 31.3 g/gl (32-36); Mean Corpuscular Hgb 26.2 pg (27.0-32.0); Mean Corpuscular Volume 83.9 fL (80-94); Mean Platelet Vol. 10.2 fl (6.2-12.0); Monocyte# 1.02 X10^3/uL; Monocyte% 11.7 % (0-10); Neutrophil # 6.59 X10^3/uL (2.7-7.7); Neutrophil % 75.6 % (47-70); Platelet Count 498 K/mm3 (150-450); RBC Distribution Width CV 16.3 % (11.6-14.6); RBC Distribution Width SD 49.5 fl (35.1-43.9); Red Blood Count 4.61 M/mm3 (4.6-6.2); White Blood Count 8.7 K/mm3 (4.4-11.0)
[2017-04-08 16:48] LABS: POSITIVE COUNT NO; POSITIVE DIFFERENTIAL NO; POSITIVE MORPHOLOGY NO
[2017-04-08 16:49] LABS: Erythrocyte Sedimentation Rate 47 mm/hr (0-20)
[2017-04-08 16:59] LABS: ALB/GLOB Ratio 0.5 RATIO (0.9-2.4); AST(SGOT) 32 U/L (15-37); Alanine Aminotransfer ALT/SGPT 43 U/L (16-61); Albumin, Serum 2.3 g/dL (3.2-5.0); Alkaline Phosphatase 109 U/L (45-117); Anion Gap 8 (5-15); BUN 21 mg/dL (7-18); BUN/Creat Ratio 35.6 RATIO (10-20); Calcium,Total 8.7 mg/dL (8.5-10.1); Chloride 104 mmol/L (98-107); Creatinine, Serum 0.59 mg/dL (0.70-1.30); EST Glomerular Filtration Rate 140 mL/min (>60); Est Glom Filt Rate - Afr Amer 169 mL/min (>60); Estimated Creatinine Clearance 59.82 ml/min; Globulin 4.3 g/dL (2.2-4.2); Glucose 88 mg/dL (74-106); Potassium 4.5 mmol/L (3.5-5.1); Protein, Total 6.6 g/dL (6.4-8.2); Sodium Level 142 mmol/L (136-145)
--- NOTE | 2017-04-13 08:45 | LEAS ---
Arterial Study - Arterial Study Arterial Study: This is an 81-year-old male with an ulceration of his right heel and ulceration on his left leg. The patient has a history of diabetes mellitus, hypertension, atrial fibrillation, coronary artery disease, peripheral arterial occlusive disease, hyperlipidemia, myocardial infarction, physical deconditioning, and smoking. The patient was brought to the noninvasive vascular laboratory at this time for the purpose of bilateral noninvasive lower extremity arterial assessment. Doppler signal assessment was used to evaluate the pulses at ankle level bilaterally. On the right, the posterior tibial pulse was biphasic. The right dorsalis pedis pulse was monophasic. The left posterior tibial and dorsalis pedis pulses were biphasic. Doppler signal assessment was used to evaluate the pulses in the lower extremities bilaterally. The right low thigh pressure could not be determined due to the noncompressibility of the vasculature. The right calf pressure was measured at 128 mmHg. The right ankle pressure, as determined by posterior tibial and dorsalis pedis pulses, could not be determined due to the noncompressibility of the vasculature. The right digital pressure was measured at 69 mmHg. The left low thigh pressure, calf pressure, and ankle pressures, as determined by posterior tibial and dorsalis pedis pulses, could not be determined due to the noncompressibility of the vasculature. The left digital pressure was measured at 55 mmHg. Pulse-volume recordings were obtained bilaterally and segmentally. Waveform amplitudes appeared to be globally diminished. Resting ankle-brachial indices could not be determined on either side due to the noncompressibility of the vasculature. Digital-brachial indices were calculated bilaterally. Right digital-brachial index was calculated to be 0.50. The left digital-brachial index was calculated to be 0.40. Impression: Based upon the findings of this resting noninvasive lower extremity arterial study, there is evidence of arterial calcification bilaterally. As result, resting ankle-brachial indices could not be calculated on either side. Digital-brachial indices are moderately diminished bilaterally, suggesting the presence of moderate impairment of arterial flow at digital level bilaterally. Clinical correlation is advised.
[2017-04-15 10:20] VITALS: BP 121/66; PULSE 91; RESP 20; TEMP 36.8; BMI 48.6
--- NOTE | 2017-04-15 11:48 | PCM.WC.PN ---
(1) Pressure ulcer, unstageable, with eschar Status: Chronic Current Visit: Yes Code(s): L89.95 - Pressure ulcer of unspecified site, unstageable; R23.4 - Changes in skin texture (2) Ulcer of right lower extremity with fat layer exposed Status: Chronic Current Visit: Yes Code(s): L97.912 - Non-pressure chronic ulcer of unspecified part of right lower leg with fat layer exposed (3) Osteomyelitis of right foot Status: Suspected Current Visit: Yes Code(s): M86.9 - Osteomyelitis, unspecified (4) PAD (peripheral artery disease) Status: Chronic Current Visit: Yes Code(s): I73.9 - Peripheral vascular disease, unspecified (5) Ulcer of left lower extremity with fat layer exposed Status: Chronic Current Visit: Yes Code(s): L97.922 - Non-pressure chronic ulcer of unspecified part of left lower leg with fat layer exposed (6) Type 2 diabetes mellitus with diabetic polyneuropathy Status: Chronic Current Visit: Yes Code(s): E11.42 - Type 2 diabetes mellitus with diabetic polyneuropathy (7) Malnutrition Status: Suspected Current Visit: Yes Code(s): E46 - Unspecified protein-calorie malnutrition (8) Physical deconditioning Status: Chronic Current Visit: Yes Code(s): R53.81 - Other malaise Type of Wound Date of Service: 04/15/17 Chief Complaint: Ulcerations/wounds of both lower extremities History of Wound: This is an 81-year-old male who is a resident of [facility] in [place], [place]. The patient is deconditioned, and nonambulatory. He was referred from Dr. Kaba for podiatric evaluation workup of osteomyelitis of the heel which is appreciated. He denies recent injury. He denies fever, chill, nausea, vomiting, odor, or redness. He did obtain his vascular noninvasive arterial studies and asked about the results today. He did have an x-ray obtained however only the report is viewable. He was previously treated for an infection that was growing Pseudomonas and MRSA. It is noted he cannot take Bactrim or doxycycline due to conflict with Coumadin causing elevated INR and other reaction. He is with his son today. He is scheduled to see Dr. Vincent with vascular surgery for further workup of arterial disease. He did see infectious disease this morning as well and input is greatly appreciated. He has a new wound to his right front leg that occurred during a transfer. A device scraped some skin off the front of his leg. He denies infection or ongoing pain to this right leg site. Progress of Wound: Stable - Physical Exam Vital Signs Temp Pulse Resp BP 98.2 F 91 20 H 121/66 H 04/15/17 10:20 04/15/17 10:20 04/15/17 10:20 04/15/17 10:20 General: Alert, Oriented x3, Cooperative HEENT: Atraumatic Extremities: No cyanosis, Capillary Refill Less than 3 Seconds, No Calf Tenderness, Diminished Peripheral Pulses Skin: Ulcer/ Wound - No odor, no erythema, streaking. There is devitalized and liquefied heel fat pad noted. The peripheral skin is atrophic and hairless. There is bilateral anterior leg skin discontinuity as well with exposed bed is granular and pink. Wound Measurements and Assessment WC - Nurse 1 - General Ulcer Measurement Start: 03/31/17 08:47 Freq: Status: Active Protocol: Activity Type Activity Date Activity User E-Sign Co-Sign Detail Recorded Client Recorded Date Recorded By Document 04/15/17 10:20 [id number] 04/15/17 10:35 04/15/17 10:20 Wound Center Nurse 1 [Ulcer Assessment] #3- RT ESPARZA -Combined with other wound No -Current Size (cm) - Length 1.8 -Current Size (cm) - Width 0.4 -Current Size (cm) - Depth 0 -Total Square Cm 0.72 -Date of Last Picture (Recall this 04/08/17 field) -Photo Taken No -Epithelialization Medium 34-66% -Tunneling No -Undermining/Tunneling No -Circular Undermining No -Classification - Thickness Full Thickness without Exposed Support Structure -Change in Wound Grade/Stage No Query Text:If change please identify the Stage/Grade in the comment (ie. S2 G3) -Exudate Amt None Present (0 %) -Wound Margin Distinct, Outline Attached -Granulation Amt Small (1-33%) -Granulation Quality Pale Red -Slough/Fibrin Yes -Necrosis Amt None Present (0 %) -Necrotic Tissue Type Adherent Slough -Structure Exposed None/Limited to Skin Breakdown -Texture (Abi-wound Skin Appearance) No Abnormality -Moisture (Abi-wound Skin Appearance No Abnormality ) -Color (Abi-wound Skin Appearance) No Abnormality -Temperature (Abi-wound Skin No Abnormality Appearance) (Pt Warm) -Tenderness on Palpation (Abi-wound No Skin Appearance) -Ulcer Cleansing Rinsed/ Irrigated with Saline -Foul Odor after Cleansing No -Anesthetic Used 4% Lidocaine Solution #2 R Heel -Combined with other wound No -Current Size (cm) - Length 4.0 -Current Size (cm) - Width 5.5 -Current Size (cm) - Depth 0.2 -Total Square Cm 22.00 -Date of Last Picture (Recall this 03/31/17 field) -Photo Taken No -Epithelialization None Present -Tunneling No -Undermining/Tunneling No -Circular Undermining No -Classification - Thickness Full Thickness without Exposed Support Structure -Classification - Pressure Ulcer Unstageable -Exudate Amt Medium (34-66%) -Exudate Type Serosanguineous -Wound Margin Distinct, Outline Attached -Granulation Amt None Present (0 %) -Granulation Quality N/A -Slough/Fibrin Yes -Necrosis Amt Small (1-33%) -Necrotic Tissue Type Eschar -Structure Exposed Fascia Fat Layer Exposed -Texture (Abi-wound Skin Appearance) No Abnormality -Moisture (Abi-wound Skin Appearance No Abnormality ) -Color (Abi-wound Skin Appearance) No Abnormality -Temperature (Abi-wound Skin No Abnormality Appearance) (Pt Warm) -Tenderness on Palpation (Abi-wound Yes Skin Appearance) -Ulcer Cleansing Rinsed/ Irrigated with Saline -Foul Odor after Cleansing No -Anesthetic Used 5% Lidocaine Gel #1 L Esparza -Combined with other wound Yes -Combined with (Name of Wound-Exactly L ESPARZA CLUSTER as it is documented) -Current Size (cm) - Length 3.2 -Current Size (cm) - Width 1.1 -Current Size (cm) - Depth 0.1 -Total Square Cm 3.52 -Date of Last Picture (Recall this 03/31/17 field) -Photo Taken No -Epithelialization Small 1-33% -Tunneling No -Undermining/Tunneling No -Circular Undermining No -Classification - Thickness Full Thickness without Exposed Support Structure -Change in Wound Grade/Stage No Query Text:If change please identify the Stage/Grade in the comment (ie. S2 G3) -Exudate Amt Small (1-33%) -Exudate Type Serosanguineous -Wound Margin Distinct, Outline Attached -Granulation Amt Small (1-33%) -Granulation Quality Red -Slough/Fibrin Yes -Necrosis Amt None Present (0 %) -Necrotic Tissue Type Adherent Slough -Structure Exposed None/Limited to Skin Breakdown -Texture (Abi-wound Skin Appearance) No Abnormality -Moisture (Abi-wound Skin Appearance No Abnormality ) -Color (Abi-wound Skin Appearance) No Abnormality -Temperature (Abi-wound Skin No Abnormality Appearance) (Pt Warm) -Ulcer Cleansing Rinsed/ Irrigated with Saline -Foul Odor after Cleansing No -Anesthetic Used 4% Lidocaine Solution [Edema Assessment] -Lower Limb Edema Present NA WC - Nurse 2 - General Ulcer CM Notes Start: 03/31/17 08:47 Freq: Status: Active Protocol: Activity Type Activity Date Activity User E-Sign Co-Sign Detail Recorded Client Recorded Date Recorded By Document 04/15/17 11:16 [id number] 04/15/17 11:20 TM 04/15/17 11:16 Wound Center Nurse 2 [Procedure/Treatment] #3- RT ESPARZA -Time 11:16 -Correct Patient Yes -Correct Side, Site, Position Yes -Correct Procedure Yes -Procedure Performed Yes -Type of Procedure Debridement -Clinical Debridement Subcutaneous -Post Debridement Size (cm) - Length 1.9 -Post Debridement Size (cm) - Width 0.5 -Post Debridement Size (cm) - Depth 0.1 -Total Square Cm 0.95 -Wound/Ulcer Outcome Not Healed -Ulcer Cleansing Rinsed/ Irrigated with Saline -Foul Odor after Cleansing No -Bioengineered Tissue No -Topical Lidocaine (%) 4 -Bleeding Controlled with Pressure -Treatment Response Procedure Tolerated Well #2 R Heel -Time 11:17 -Correct Patient Yes -Correct Side, Site, Position Yes -Correct Procedure Yes -Procedure Performed Yes -Type of Procedure Debridement -Clinical Debridement Subcutaneous -Post Debridement Size (cm) - Length 4.1 -Post Debridement Size (cm) - Width 5.6 -Post Debridement Size (cm) - Depth 0.2 -Total Square Cm 22.96 -Wound/Ulcer Outcome Not Healed -Ulcer Cleansing Rinsed/ Irrigated with Saline -Foul Odor after Cleansing No -Bioengineered Tissue No -Topical Lidocaine (%) 4 -Bleeding Controlled with Pressure -Treatment Response Procedure Tolerated Well #1 L Esparza -Time 11:17 -Correct Patient Yes -Correct Side, Site, Position Yes -Correct Procedure Yes -Procedure Performed Yes -Type of Procedure Debridement -Clinical Debridement Subcutaneous -Post Debridement Size (cm) - Length 3.3 -Post Debridement Size (cm) - Width 1.2 -Post Debridement Size (cm) - Depth 0.1 -Total Square Cm 3.96 -Wound/Ulcer Outcome Not Healed -Ulcer Cleansing Rinsed/ Irrigated with Saline -Foul Odor after Cleansing No -Bioengineered Tissue No -Topical Lidocaine (%) 4 -Bleeding Controlled with Pressure -Treatment Response Procedure Tolerated Well [See Physician Procedure note for Specifics] Pain Scale: 0-10 Numeric [Pain] -Is Patient Pain Free? Yes Musculoskeletal: No Tenderness to Palpation of Joints or Extremities, Muscle Wasting, - - Pain with heel wound manipulation noted Neurological: - - Lack of epicritic sensation light touch Psych/Mental Status: Normal Affect, Appropriate Debridement Note Post-Debridement Measurements/Treatment WC - Nurse 2 - General Ulcer CM Notes Start: 03/31/17 08:47 Freq: Status: Active Protocol: Activity Type Activity Date Activity User E-Sign Co-Sign Detail Recorded Client Recorded Date Recorded By Document 04/08/17 14:57 TM [id number] 04/08/17 15:24 TM Document 04/15/17 11:16 TM [id number] 04/15/17 11:20 TM 04/08/17 04/15/17 14:57 11:16 Wound Center Nurse 2 #3- RT ESPARZA -Time 15:23 11:16 -Correct Patient Yes Yes -Correct Side, Site, Position Yes Yes -Correct Procedure Yes Yes -Procedure Performed Yes Yes -Type of Procedure Debridement -Clinical Debridement Subcutaneous -Post Debridement Size (cm) - Length 1.3 1.9 -Post Debridement Size (cm) - Width 0.5 0.5 -Post Debridement Size (cm) - Depth 0.1 0.1 -Total Square Cm 0.65 0.95 -Wound/Ulcer Outcome Not Healed Not Healed -Ulcer Cleansing Rinsed/ Rinsed/ Irrigated with Irrigated with Saline Saline -Foul Odor after Cleansing No No -Bioengineered Tissue No No -Topical Lidocaine (%) 4 4 -Bleeding Controlled with NA Pressure -Treatment Response Procedure Procedure Tolerated Well Tolerated Well #2 R Heel -Time 15:23 11:17 -Correct Patient Yes Yes -Correct Side, Site, Position Yes Yes -Correct Procedure Yes Yes -Procedure Performed Yes Yes -Type of Procedure Debridement -Clinical Debridement Subcutaneous -Post Debridement Size (cm) - Length 4.0 4.1 -Post Debridement Size (cm) - Width 5.6 5.6 -Post Debridement Size (cm) - Depth 0.3 0.2 -Total Square Cm 22.40 22.96 -Wound/Ulcer Outcome Not Healed Not Healed -Ulcer Cleansing Rinsed/ Rinsed/ Irrigated with Irrigated with Saline Saline -Foul Odor after Cleansing No No -Bioengineered Tissue No No -Topical Lidocaine (%) 4 -Bleeding Controlled with NA Pressure -Treatment Response Procedure Procedure Tolerated Well Tolerated Well #1 L Esparza -Time 15:23 11:17 -Correct Patient Yes Yes -Correct Side, Site, Position Yes Yes -Correct Procedure Yes Yes -Procedure Performed Yes Yes -Type of Procedure Debridement -Clinical Debridement Subcutaneous -Post Debridement Size (cm) - Length 1.5 3.3 -Post Debridement Size (cm) - Width 1.1 1.2 -Post Debridement Size (cm) - Depth 0.1 0.1 -Total Square Cm 1.65 3.96 -Wound/Ulcer Outcome Not Healed Not Healed -Ulcer Cleansing Rinsed/ Rinsed/ Irrigated with Irrigated with Saline Saline -Foul Odor after Cleansing No No -Bioengineered Tissue No No -Topical Lidocaine (%) 4 -Bleeding Controlled with NA Pressure -Treatment Response Procedure Procedure Tolerated Well Tolerated Well Pain Scale: 0-10 Numeric Is Patient Pain Free? Yes Yes Wound debrided: heel Laterality: Right Wound Grade/Stage: grade 3 Type of Debridement: Excisional debridement Anesthesia Used: 4% Lidocaine Solution Depth: in the subcutaneous layer Percentage of wound debrided: 100 Instrument Used: #15 blade, Forceps Tissue Removed: fibrous, devitalized subcutaneous, biofilm, slough Severity: Fat Layer Exposed Amount of bleeding with debridement: Mild Bleeding Controlled with: Pressure Patient tolerated procedure well - Additional Wound Wound debrided: anterior leg Laterality: Right Wound Grade/Stage: grade1 Type of Debridement: Excisional debridement Anesthesia Used: 4% Lidocaine Solution Depth: in the subcutaneous layer Percentage of wound debrided: 100 Instrument Used: #15 blade Tissue Removed: fibrous, devitalized subcutaneous, biofilm, slough Severity: Fat Layer Exposed Amount of bleeding with debridement: Mild Bleeding Controlled with: Pressure Patient tolerated procedure: Patient tolerated procedure well - Additional Wound Wound debrided: anterior leg Laterality: Left Wound Grade/Stage: grade 1 Type of Debridement: Excisional debridement Anesthesia Used: 4% Lidocaine Solution Depth: in the subcutaneous layer Percentage of wound debrided: 100 Instrument Used: #15 blade Tissue Removed: fibrous, devitalized subcutaneous, biofilm, slough Severity: Fat Layer Exposed Amount of bleeding with debridement: Mild Bleeding Controlled with: Pressure Patient tolerated procedure: Patient tolerated procedure well Assessment/Plan Active Problems Pressure ulcer, heel, right, unstageable (Chronic) Wound of left leg (Acute) Diabetes mellitus (Chronic) Physical deconditioning (Chronic) PAD (peripheral artery disease) (Chronic) Ulcer of right lower extremity with fat layer exposed (Chronic) Ulcer of left lower extremity with fat layer exposed (Chronic) Pressure ulcer, unstageable, with eschar (Chronic) Type 2 diabetes mellitus with diabetic polyneuropathy (Chronic) Assessment: Ulcer right leg with fat exposed. Ulcer left leg with fat exposed. Unstageable eschar pressure ulcer with arterial etiology to right heel. Rule out osteomyelitis of right calcaneus. Diabetes with neuropathy. Peripheral vascular disease. Gait impairment. Malnutrition suspected. Other comorbidities. On anticoagulation chronic use Plan: I reviewed and discussed the case with the patient today. His diagnostic data was reviewed. Cultures have been obtained relative to the patient's right heel ulceration which demonstrated Pseudomonas and MRSA previous growth. He was recently on Levaquin. I recommend infectious disease consultation and input is greatly appreciated. His cultures demonstrated MRSA, PsA, and anaerobes. He is noted he is tolerating doxy well despite listed allergy which was likely more a reaction with his other medicaitons given it contributed to increased INR. The plan is to do 6 week course of oral doxy, cipro, and flagyl to cover recent growth. The stop date is 05/27/17. Weekly bmp, lft, cbc, and esr while on these antibiotics will be monitored with infectious disease. Offloading measures were implemented, in particular with respect to the right heel ulceration, which appears to be pressure-related. A padded boot is to be used. He was advised to hang his heel over pillows while resting in bed to float in the air to ensure proper offloading. Patient has been advised to optimize his nutrition, and his appetite is said to be good. Supplements have been recommended; a prescription for Gregorio was provided today. The purpose and proper use and expectations were discussed. A noninvasive lower extremity arterial study in which right monophasic artery was noted. The ABIs were not calculated due to noncompressibility and it looks like he has vascular disease. A referral to vascular surgery, Dr. Vincent was provided. He does not have leukocytosis and his white blood cell count 8.7, sedimentation rate 47, albumin 2.3, and prealbumin 13.6. in light of the findings on recent radiographs, suggesting possible osteomyelitis of the calcaneus. I requested a CD to review the actual images and this is in process of being mailed to the wound center facilty at this time. MRI or other advanced imaging will be considered pending the x-ray review and clinical progress. Patient is to return on a weekly basis routine wound management. Santyl is to be used topically relative to the right heel ulceration, as well as offloading measures. Collagen hydrogel is to be used topically relative to the left lower extremity wound. He understands he is at risk for limb loss and further workup is warranted. I answered all his questions. To return to the wound care center in 1 week or sooner if there are any questions or concerns.
--- NOTE | 2017-04-15 11:58 | PCM.HP.ID ---
Problem List (1) Osteomyelitis of right foot Status: Suspected Reason for Consult: osteo Consulted by: Dr. Castaneda History of Present Illness: The patient is a 81 year old M with h/o PVD and prior osteomyelitis who c/o R heel ulcer for about 6 months, started as some blisters/sores on foot. Has been on multiple courses of abx. No fever or chills. Having some redness and drainage. Wound cx from 2 weeks ago with MRSA, PsA, and anaerobes. Started on po doxy at [facility] 04/06. Has been tolerating it well with INR monitoring. R heel wound with persistent gangrene, odor, and mild drainage. Son provided additional history. Full ROS performed and neg except as noted above. 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) Allergies/Adverse Reactions: Allergies doxycycline Adverse Reaction (Unverified 04/06/17 09:30) Unknown sulfamethoxazole [From Bactrim] Adverse Reaction (Unverified 04/06/17 09:30) Unknown trimethoprim [From Bactrim] Adverse Reaction (Unverified 04/06/17 09:30) Unknown Home Medications: Ambulatory Orders Medication Instructions Recorded Acidophilus 1 capsule PO TID 03/31/17 Aspirin 81 mg PO DAILY 03/31/17 Atorvastatin Calcium 20 mg PO DAILY 03/31/17 Calcium 500-Vit D3 200 Tablet 1 mg PO BID 03/31/17 Cholecalciferol (VIT D3) 2,000 iu PO DAILY 03/31/17 Colace 100 mg PO DAILY 03/31/17 Coumadin 5 mg PO DAILY 03/31/17 Glimepiride 2 mg PO DAILY 03/31/17 Keflex 500 mg PO TID 03/31/17 Metoprolol Succinate 25 mg PO DAILY 03/31/17 Milk Of Magnesia 400 mg PO PRN PRN 03/31/17 Multiple Vitamins 1 tablet PO DAILY 03/31/17 Oxybutynin Chloride 10 mg PO DAILY 03/31/17 Systane Gel Eye Drops 1 drop OPHTHALMIC 4X/DAY 03/31/17 Tamsulosin HCl 0.4 mg PO DAILY 03/31/17 Tylenol 650 mg PO Q4H PRN 03/31/17 Vigamox Ophth 1 drop OPHTHALMIC 4X/DAY 03/31/17 - Social History Lives: in a usp Vital Signs Temp Pulse Resp BP 98.2 F 91 20 H 121/66 H 04/15/17 10:20 04/15/17 10:20 04/15/17 10:20 04/15/17 10:20 Oxygen Delivery Method Room Air Weight: 154 kg Body Mass Index (BMI) 48.6 - Other Studies Radiology: [] reviewed Other Studies: [] ESR 47 Route of nutrition/ use of supplements: [] Nutritional Intake: [] IV Site: [] Willis Catheter: [] - Physical Exam General: Alert, Cooperative, No apparent distress HEENT: Atraumatic, PERRLA, EOMI Neck: Supple, No Nodes Lungs: Clear to auscultation, Normal air movement Cardiovascular: Regular rate, Regular Rhythm Abdomen: Bowel Sounds Present, Soft, Non Tender, Non-Distended Extremities: Diminished Peripheral Pulses Skin: Ulcer/ Wound - R heel ulcer with foul odor, mild redness, some necrotic tissue Musculoskeletal: No Tenderness to Palpation of Joints or Extremities Neurological: Cranial nerves II-XII grossly intact, - - BLE neuropathy - Assessment/Plan Antibiotics: [] Assessment/Plan: [] Active and Suspected Problems Wound of left leg (Acute) Malnutrition (Suspected) Osteomyelitis of right foot (Suspected) R heel osteo with MRSA, PsA, and anaerobes on recent cx - he is to see vascular given recent results. Tolerating doxy well despite listed allergy. Will do 6 week course of po doxy, cipro, and flagyl to cover recent growth. Stop date 05/27/17. Weekly bmp, lft, cbc, and esr while on these abx. Wrote rx for abx and labs. Thank you for this referral. Discussed with Dr. Castaneda, and gave family member my card. I would like to see him again in 2-3 weeks.
--- NOTE | 2017-04-15 12:05 | CON.PCM_ITS ---
Problem List (1) Osteomyelitis of right foot Status: Suspected Reason for Consult: osteo Consulted by: Dr. Castaneda History of Present Illness: The patient is a 81 year old M with h/o PVD and prior osteomyelitis who c/o R heel ulcer for about 6 months, started as some blisters/sores on foot. Has been on multiple courses of abx. No fever or chills. Having some redness and drainage. Wound cx from 2 weeks ago with MRSA, PsA, and anaerobes. Started on po doxy at [facility] 04/06. Has been tolerating it well with INR monitoring. R heel wound with persistent gangrene, odor, and mild drainage. Son provided additional history. Full ROS performed and neg except as noted above. 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) Allergies/Adverse Reactions: Allergies doxycycline Adverse Reaction (Unverified 04/06/17 09:30) Unknown sulfamethoxazole [From Bactrim] Adverse Reaction (Unverified 04/06/17 09:30) Unknown trimethoprim [From Bactrim] Adverse Reaction (Unverified 04/06/17 09:30) Unknown Home Medications: Ambulatory Orders Medication Instructions Recorded Acidophilus 1 capsule PO TID 03/31/17 Aspirin 81 mg PO DAILY 03/31/17 Atorvastatin Calcium 20 mg PO DAILY 03/31/17 Calcium 500-Vit D3 200 Tablet 1 mg PO BID 03/31/17 Cholecalciferol (VIT D3) 2,000 iu PO DAILY 03/31/17 Colace 100 mg PO DAILY 03/31/17 Coumadin 5 mg PO DAILY 03/31/17 Glimepiride 2 mg PO DAILY 03/31/17 Keflex 500 mg PO TID 03/31/17 Metoprolol Succinate 25 mg PO DAILY 03/31/17 Milk Of Magnesia 400 mg PO PRN PRN 03/31/17 Multiple Vitamins 1 tablet PO DAILY 03/31/17 Oxybutynin Chloride 10 mg PO DAILY 03/31/17 Systane Gel Eye Drops 1 drop OPHTHALMIC 4X/DAY 03/31/17 Tamsulosin HCl 0.4 mg PO DAILY 03/31/17 Tylenol 650 mg PO Q4H PRN 03/31/17 Vigamox Ophth 1 drop OPHTHALMIC 4X/DAY 03/31/17 - Social History Lives: in a prison Vital Signs Temp Pulse Resp BP 98.2 F 91 20 H 121/66 H 04/15/17 10:20 04/15/17 10:20 04/15/17 10:20 04/15/17 10:20 Oxygen Delivery Method Room Air Weight: 154 kg Body Mass Index (BMI) 48.6 - Other Studies Radiology: [] reviewed Other Studies: [] ESR 47 Route of nutrition/ use of supplements: [] Nutritional Intake: [] IV Site: [] Willis Catheter: [] - Physical Exam General: Alert, Cooperative, No apparent distress HEENT: Atraumatic, PERRLA, EOMI Neck: Supple, No Nodes Lungs: Clear to auscultation, Normal air movement Cardiovascular: Regular rate, Regular Rhythm Abdomen: Bowel Sounds Present, Soft, Non Tender, Non-Distended Extremities: Diminished Peripheral Pulses Skin: Ulcer/ Wound - R heel ulcer with foul odor, mild redness, some necrotic tissue Musculoskeletal: No Tenderness to Palpation of Joints or Extremities Neurological: Cranial nerves II-XII grossly intact, - - BLE neuropathy - Assessment/Plan Antibiotics: [] Assessment/Plan: [] Active and Suspected Problems Wound of left leg (Acute) Malnutrition (Suspected) Osteomyelitis of right foot (Suspected) R heel osteo with MRSA, PsA, and anaerobes on recent cx - he is to see vascular given recent results. Tolerating doxy well despite listed allergy. Will do 6 week course of po doxy, cipro, and flagyl to cover recent growth. Stop date 01/03. Weekly bmp, lft, cbc, and esr while on these abx. Wrote rx for abx and labs. Thank you for this referral. Discussed with Dr. Castaneda, and gave family member my card. I would like to see him again in 2-3 weeks.
== END 2017-04-15 23:59 ==
LOC: WC 10:00
PROVIDERS: Surgery; Family Provider Family Medicine; Visit Provider Podiatrist
DX: E11.621 Type 2 diabetes mellitus with foot ulcer (principal); L89.610 Pressure ulcer of right heel, unstageable; E11.52 Type 2 diabetes mellitus with diabetic peripheral angiopathy with gangrene; I10 Essential (primary) hypertension; I48.2 Chronic atrial fibrillation; I25.10 Atherosclerotic heart disease of native coronary artery without angina pectoris; E78.5 Hyperlipidemia, unspecified; E11.42 Type 2 diabetes mellitus with diabetic polyneuropathy; I25.2 Old myocardial infarction; Z85.46 Personal history of malignant neoplasm of prostate; Z79.82 Long term (current) use of aspirin; Z79.899 Other long term (current) drug therapy; Z87.891 Personal history of nicotine dependence; L97.822 Non-pressure chronic ulcer of other part of left lower leg with fat layer exposed; L97.812 Non-pressure chronic ulcer of other part of right lower leg with fat layer exposed; E11.622 Type 2 diabetes mellitus with other skin ulcer; B96.5 Pseudomonas (aeruginosa) (mallei) (pseudomallei) as the cause of diseases classified elsewhere; B95.62 Methicillin resistant Staphylococcus aureus infection as the cause of diseases classified elsewhere
CPT/HCPCS: 11042; 11045; 80053; 84134; 85025; 85027; 85652; 86140; 87070; 87075; 87077; 87186; 87205; 93923; 97602; 99203; 99215; G0463

== ENCOUNTER → 2017-05-07 12:46 | Outpatient (CLI) | payer MEDICARE, SELFPAY ==
--- NOTE | 2017-05-07 12:48 | ADU_ITS ---
Reason For Study: Atherosclerosis with ulceration Right Velocities Left Velocities Common Femoral Artery, prox = 66.3 cm./sec. Common Femoral Artery, prox = 92.0 cm./sec. Supf Femoral Artery, prox = 113.0 cm./sec. Supf. Femoral Artery, prox = 71.5 cm./sec. Supf Femoral Artery, mid = 55.7 cm./sec. Supf. Femoral Artery, mid = 59.2 cm./sec. Supf Femoral Artery, dist. = 59.8 cm./sec. Supf. Femoral Artery, dist = 68.0 cm./sec. Profunda Femoral Artery = 65.1 cm./sec. Profunda Femoral Artery = 102.0 cm./sec. Popliteal Artery, prox. = 49.2 cm./sec. Popliteal Artery, proximal, = 54.7 cm./sec. Popliteal Artery, mid = 38.7 cm./sec. Popliteal Artery, mid = 51.0 cm./sec. Popliteal Artery, dist = 36.9 cm./sec. Popliteal Artery, distal = 34.0 cm./sec. Post. Tibial Artery, prox = 78.0 cm./sec. Post. Tibial Artery, prox = 82.1 cm./sec. Post. Tibial Artery, mid = 55.7 cm./sec. Post Tibial Artery, mid = 65.7 cm./sec. Post. Tibial Artery, dist = 86.2 cm./sec. Post Tibial Artery, dist. = 72.1 cm./sec. Peroneal Artery, prox = 56.9 cm./sec. Peroneal Artery, prox = 41.6 cm./sec. Peroneal Artery, mid = 43.3 cm./sec. Peroneal Artery, mid = 80.9 cm./sec. Peroneal Artery,dist = 25.8 cm./sec. Peroneal Artery,dist. = 58.0 cm./sec. Ant. Tibial Artery, mid = 19.9 cm./sec. Ant.Tibial Artery, prox = 34.0 cm./sec. Ant. Tibial Artery, dist = 29.3 cm./sec. Ant Tibial Artery, mid = 24.6 cm./sec. Ant. Tibial Artery, distal = 12.0 cm./sec. Procedure Exam performed in department. Interpretation Summary 1. Bilateral lower extremities with no stenosis seen. Ordering Physician: Michael Vincent Referring Physician: Michael Vincent Performed By: Shira Phoenix RVT
--- NOTE | 2017-05-13 11:29 | LEAS ---
Arterial Study - Arterial Study Arterial Study: Date of scan 05/07/[address] Vincent Interpretation: Right lower extremity with duplex showing a biphasic waveform with slightly peaked waveforms noted. Unable to determine an RAZIA secondary to noncompressibility of both vessels at the ankle. Digital brachial index is 0.86. Left lower extremity again on duplex showing increased peaked waveforms even more than the right. More of a biphasic waveform probably. Again unable to terminate RAZIA secondary to noncompressibility of both vessels at the ankle. Digital brachial index is 0.93. Interpretation: 1. Bilateral lower extremities with some evidence of arterial occlusive disease. 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 Waveforms appear adequate at the ankle. Digital brachial index is normal bilateral with 0.86 at the right 0.93 of the left. Further evaluation as clinically warranted
--- NOTE | 2017-05-13 11:32 | LEAS_ITS ---
Arterial Study - Arterial Study Arterial Study: Date of scan 05/07/[address] Vincent Interpretation: Right lower extremity with duplex showing a biphasic waveform with slightly peaked waveforms noted. Unable to determine an RAZIA secondary to noncompressibility of both vessels at the ankle. Digital brachial index is 0.86. Left lower extremity again on duplex showing increased peaked waveforms even more than the right. More of a biphasic waveform probably. Again unable to terminate RAZIA secondary to noncompressibility of both vessels at the ankle. Digital brachial index is 0.93. Interpretation: 1. Bilateral lower extremities with some evidence of arterial occlusive disease. 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 Waveforms appear adequate at the ankle. Digital brachial index is normal bilateral with 0.86 at the right 0.93 of the left. Further evaluation as clinically warranted
== END ==
PROVIDERS: Family Provider Family Medicine; PCP Family Medicine; Visit Provider Surgery Vascular Surgery
DX: I70.242 Atherosclerosis of native arteries of left leg with ulceration of calf (principal); I70.232 Atherosclerosis of native arteries of right leg with ulceration of calf
CPT/HCPCS: 93922; 93925

== ENCOUNTER 2017-05-13 14:00 | Outpatient (RCR) | payer MEDICARE, SELFPAY ==
[2017-04-16 01:09] VITALS: PULSE 91; RESP 20; TEMP 36.8
[2017-04-22 12:16] VITALS: BP 117/73; PULSE 73; RESP 18; TEMP 36.7
--- NOTE | 2017-04-22 12:58 | PN.PCM_ITS ---
(1) Pressure ulcer, heel, right, unstageable Status: Chronic Current Visit: Yes Code(s): L89.610 - Pressure ulcer of right heel, unstageable (2) Physical deconditioning Status: Chronic Current Visit: Yes Code(s): R53.81 - Other malaise (3) PAD (peripheral artery disease) Status: Chronic Current Visit: Yes Code(s): I73.9 - Peripheral vascular disease, unspecified (4) Ulcer of right lower extremity with fat layer exposed Status: Chronic Current Visit: Yes Code(s): L97.912 - Non-pressure chronic ulcer of unspecified part of right lower leg with fat layer exposed (5) Ulcer of left lower extremity with fat layer exposed Status: Chronic Current Visit: Yes Code(s): L97.922 - Non-pressure chronic ulcer of unspecified part of left lower leg with fat layer exposed (6) Type 2 diabetes mellitus with diabetic polyneuropathy Status: Chronic Current Visit: Yes Code(s): E11.42 - Type 2 diabetes mellitus with diabetic polyneuropathy (7) Malnutrition Status: Suspected Current Visit: Yes Code(s): E46 - Unspecified protein- calorie malnutrition Type of Wound Date of Service: 04/22/17 Chief Complaint: Ulcerations/wounds of both legs. Right heel ulcer with resolving infection History of Wound: This is an 81-year-old male who is a resident of [facility] in [place], [place]. The patient is deconditioned, and nonambulatory. He denies recent injury. He denies fever, chill, nausea, vomiting, odor, or redness. He did attend his vascular surgery meeting today and a Doppler and potential angioplasty versus bypass is planned pending the results. He did have an x-ray obtained and I obtain a CD in the mail and have reviewed this. He was previously treated for an infection that was growing Pseudomonas and MRSA. Infectious disease did evaluate the patient and he is continuing on antibiotics as recommended. He did see infectious disease this morning as well and input is greatly appreciated. Progress of Wound: Stable - Physical Exam Vital Signs Temp Pulse Resp BP 98.0 F 73 18 117/73 04/22/17 12:16 04/22/17 12:16 04/22/17 12:16 04/22/17 12:16 General: Alert, Oriented x3, Cooperative Extremities: No cyanosis, Capillary Refill Less than 3 Seconds, No Calf Tenderness - Negative Gordo and Vera bilateral, Diminished Peripheral Pulses, Edema - Mild bilateral lower extremity Skin: Ulcer/ Wound - No purulence, no erythema, no streaking, no eschar. The right heel wound has adipose tissue exposed and significant devitalized liquefied fibrous plug. Granulation tissue improved to left leg wound. His skin is atrophic and without hair bilateral Wound Measurements and Assessment WC - Nurse 1 - General Ulcer Measurement Start: 04/22/17 11:22 Freq: Status: Active Protocol: Activity Type Activity Date Activity User E-Sign Co-Sign Detail Recorded Client Recorded Date Recorded By Document 04/22/17 12:16 TM [id number] 04/22/17 12:24 TM 04/22/17 12:16 Wound Center Nurse 1 [Ulcer Assessment] #3- RT ESPARZA -Combined with other wound No -Current Size (cm) - Length 3.0 -Current Size (cm) - Width 1.0 -Current Size (cm) - Depth 0.1 -Total Square Cm 3.00 -Photo Taken No -Epithelialization Small 1-33% -Tunneling No -Undermining/Tunneling No -Circular Undermining No -Classification - Thickness Full Thickness without Exposed Support Structure -Exudate Amt Small (1-33%) -Exudate Type Serosanguineous -Wound Margin Distinct, Outline Attached -Granulation Amt None Present (0 %) -Granulation Quality N/A -Slough/Fibrin Yes -Necrosis Amt Large (67-100%) -Necrotic Tissue Type Adherent Slough -Structure Exposed Fascia Fat Layer Exposed -Texture (Abi-wound Skin Appearance) No Abnormality -Moisture (Abi-wound Skin Appearance Dry/Scaly ) -Color (Abi-wound Skin Appearance) Erythema -Temperature (Abi-wound Skin No Abnormality Appearance) (Pt Warm) -Tenderness on Palpation (Abi-wound No Skin Appearance) -Ulcer Cleansing Rinsed/ Irrigated with Saline -Foul Odor after Cleansing No -Anesthetic Used 4% Lidocaine Solution #2 R Heel -Combined with other wound No -Current Size (cm) - Length 5.8 -Current Size (cm) - Width 5.0 -Current Size (cm) - Depth 0.2 -Total Square Cm 29.00 -Photo Taken No -Epithelialization None Present -Tunneling No -Undermining/Tunneling No -Circular Undermining No -Classification - Thickness Full Thickness without Exposed Support Structure -Exudate Amt Medium (34-66%) -Exudate Type Yellow/Green -Wound Margin Distinct, Outline Attached -Granulation Amt None Present (0 %) -Granulation Quality N/A -Slough/Fibrin Yes -Necrosis Amt Large (67-100%) -Necrotic Tissue Type Adherent Slough -Structure Exposed Fascia Fat Layer Exposed -Texture (Abi-wound Skin Appearance) Friable -Moisture (Abi-wound Skin Appearance No Abnormality ) -Color (Abi-wound Skin Appearance) Erythema -Temperature (Abi-wound Skin No Abnormality Appearance) (Pt Warm) -Tenderness on Palpation (Abi-wound No Skin Appearance) -Ulcer Cleansing Rinsed/ Irrigated with Saline -Foul Odor after Cleansing No -Anesthetic Used 4% Lidocaine Solution #1 L Esparza cluster -Combined with other wound No -Current Size (cm) - Length 1.8 -Current Size (cm) - Width 0.4 -Current Size (cm) - Depth 0.1 -Total Square Cm 0.72 -Photo Taken No -Epithelialization Small 1-33% -Tunneling No -Undermining/Tunneling No -Circular Undermining No -Classification - Thickness Full Thickness without Exposed Support Structure -Exudate Amt Small (1-33%) -Exudate Type Serosanguineous -Wound Margin Distinct, Outline Attached -Granulation Amt Large (67-100%) -Granulation Quality Red -Slough/Fibrin Yes -Necrosis Amt Small (1-33%) -Necrotic Tissue Type Adherent Slough -Structure Exposed Fascia Fat Layer Exposed -Texture (Abi-wound Skin Appearance) Scarring -Moisture (Abi-wound Skin Appearance No Abnormality ) -Color (Abi-wound Skin Appearance) Erythema Hemosiderin Staining -Temperature (Abi-wound Skin No Abnormality Appearance) (Pt Warm) -Tenderness on Palpation (Abi-wound No Skin Appearance) -Ulcer Cleansing Rinsed/ Irrigated with Saline -Foul Odor after Cleansing No -Anesthetic Used 4% Lidocaine Solution [Edema Assessment] -Lower Limb Edema Present Yes -Right Calf (cm) 33.0 -Right Ankle (cm) 21.0 -Left Calf (cm) 33.0 -Left Ankle (cm) 21.0 WC - Nurse 2 - General Ulcer CM Notes Start: 04/22/17 11:22 Freq: Status: Active Protocol: Activity Type Activity Date Activity User E-Sign Co-Sign Detail Recorded Client Recorded Date Recorded By Document 04/22/17 12:16 [email or web address] [id number] 04/22/17 12:24 TM 04/22/17 12:16 Wound Center Nurse 2 [Procedure/Treatment] #3- RT ESPARZA -Time 12:21 -Correct Patient Yes -Correct Side, Site, Position Yes -Correct Procedure Yes -Procedure Performed Yes -Type of Procedure Debridement -Clinical Debridement Subcutaneous -Post Debridement Size (cm) - Length 1.9 -Post Debridement Size (cm) - Width 0.5 -Post Debridement Size (cm) - Depth 0.1 -Total Square Cm 0.95 -Wound/Ulcer Outcome Not Healed -Ulcer Cleansing Rinsed/ Irrigated with Saline -Foul Odor after Cleansing No -Bioengineered Tissue No -Topical Lidocaine (%) 4 -Bleeding Controlled with Pressure -Treatment Response Procedure Tolerated Well #2 R Heel -Time 12:21 -Correct Patient Yes -Correct Side, Site, Position Yes -Correct Procedure Yes -Procedure Performed Yes -Type of Procedure Debridement -Clinical Debridement Subcutaneous -Post Debridement Size (cm) - Length 5.9 -Post Debridement Size (cm) - Width 5.1 -Post Debridement Size (cm) - Depth 0.2 -Total Square Cm 30.09 -Wound/Ulcer Outcome Not Healed -Ulcer Cleansing Rinsed/ Irrigated with Saline -Foul Odor after Cleansing No -Bioengineered Tissue No -Bleeding Controlled with Pressure -Treatment Response Procedure Tolerated Well #1 L Esparza cluster -Time 12:22 -Correct Patient Yes -Correct Side, Site, Position Yes -Correct Procedure Yes -Procedure Performed Yes -Type of Procedure Debridement -Clinical Debridement Subcutaneous -Post Debridement Size (cm) - Length 3.1 -Post Debridement Size (cm) - Width 1.1 -Post Debridement Size (cm) - Depth 0.1 -Total Square Cm 3.41 -Wound/Ulcer Outcome Not Healed -Ulcer Cleansing Rinsed/ Irrigated with Saline -Foul Odor after Cleansing No -Bioengineered Tissue No -Topical Lidocaine (%) 4 -Bleeding Controlled with Pressure -Treatment Response Procedure Tolerated Well Musculoskeletal: No Tenderness to Palpation of Joints or Extremities, Muscle Wasting, Tenderness - Heel wound manipulation. No crepitus Neurological: - - Lack of epicritic sensation light touch Psych/Mental Status: Normal Affect, - - Intermittently confused and not responding to questions appropriately. He is very pleasant Debridement Note Post-Debridement Measurements/Treatment WC - Nurse 2 - General Ulcer CM Notes Start: 04/22/17 11:22 Freq: Status: Active Protocol: Activity Type Activity Date Activity User E-Sign Co-Sign Detail Recorded Client Recorded Date Recorded By Document 04/22/17 12:16 [id number] 04/22/17 12:24 TM 04/22/17 12:16 Wound Center Nurse 2 #3- RT ESPARZA -Time 12:21 -Correct Patient Yes -Correct Side, Site, Position Yes -Correct Procedure Yes -Procedure Performed Yes -Type of Procedure Debridement -Clinical Debridement Subcutaneous -Post Debridement Size (cm) - Length 1.9 -Post Debridement Size (cm) - Width 0.5 -Post Debridement Size (cm) - Depth 0.1 -Total Square Cm 0.95 -Wound/Ulcer Outcome Not Healed -Ulcer Cleansing Rinsed/ Irrigated with Saline -Foul Odor after Cleansing No -Bioengineered Tissue No -Topical Lidocaine (%) 4 -Bleeding Controlled with Pressure -Treatment Response Procedure Tolerated Well #2 R Heel -Time 12:21 -Correct Patient Yes -Correct Side, Site, Position Yes -Correct Procedure Yes -Procedure Performed Yes -Type of Procedure Debridement -Clinical Debridement Subcutaneous -Post Debridement Size (cm) - Length 5.9 -Post Debridement Size (cm) - Width 5.1 -Post Debridement Size (cm) - Depth 0.2 -Total Square Cm 30.09 -Wound/Ulcer Outcome Not Healed -Ulcer Cleansing Rinsed/ Irrigated with Saline -Foul Odor after Cleansing No -Bioengineered Tissue No -Bleeding Controlled with Pressure -Treatment Response Procedure Tolerated Well #1 L Esparza cluster -Time 12:22 -Correct Patient Yes -Correct Side, Site, Position Yes -Correct Procedure Yes -Procedure Performed Yes -Type of Procedure Debridement -Clinical Debridement Subcutaneous -Post Debridement Size (cm) - Length 3.1 -Post Debridement Size (cm) - Width 1.1 -Post Debridement Size (cm) - Depth 0.1 -Total Square Cm 3.41 -Wound/Ulcer Outcome Not Healed -Ulcer Cleansing Rinsed/ Irrigated with Saline -Foul Odor after Cleansing No -Bioengineered Tissue No -Topical Lidocaine (%) 4 -Bleeding Controlled with Pressure -Treatment Response Procedure Tolerated Well Wound debrided: leg Wound Grade/Stage: grade 1 Type of Debridement: Selective debridement Anesthesia Used: 4% Lidocaine Solution Depth: in the subcutaneous layer Percentage of wound debrided: 100 Instrument Used: #15 blade Tissue Removed: fibrous, devitalized tissue, biofilm, slough Severity: Limited To Skin Breakdown Amount of bleeding with debridement: Mild Bleeding Controlled with: Pressure Patient tolerated procedure well - Additional Wound Wound debrided: leg Laterality: Left Wound Grade/Stage: grade 1 Type of Debridement: Selective debridement Anesthesia Used: 4% Lidocaine Solution Depth: Down to and including healthy tissue Percentage of wound debrided: 100 Instrument Used: #15 blade Tissue Removed: fibrous, devitalized tissue, biofilm, slough Severity: Limited To Skin Breakdown Amount of bleeding with debridement: Mild Bleeding Controlled with: Pressure Patient tolerated procedure: Patient tolerated procedure well - Additional Wound Wound debrided: heel Laterality: Right Wound Grade/Stage: grade 3 Type of Debridement: Excisional debridement Anesthesia Used: 4% Lidocaine Solution Depth: in the subcutaneous layer Percentage of wound debrided: 100 Instrument Used: #15 blade, Forceps Tissue Removed: fibrous, devitalized tissue adipose, biofilm, slough Severity: Fat Layer Exposed Amount of bleeding with debridement: Mild Bleeding Controlled with: Pressure Patient tolerated procedure: Patient tolerated procedure well Assessment/Plan Active Problems Pressure ulcer, heel, right, unstageable (Chronic) Physical deconditioning (Chronic) PAD (peripheral artery disease) (Chronic) Ulcer of right lower extremity with fat layer exposed (Chronic) Ulcer of left lower extremity with fat layer exposed (Chronic) Type 2 diabetes mellitus with diabetic polyneuropathy (Chronic) Assessment: Ulcer right leg with fat exposed. Ulcer left leg with fat exposed. Unstageable eschar pressure ulcer with arterial etiology to right heel. infection resolving. a confirmed diagnosis of osteomyelitis cannot be made at this time. Diabetes with neuropathy. Peripheral vascular disease. Gait impairment. Malnutrition suspected. Other comorbidities. On anticoagulation chronic use Plan: I reviewed and discussed the case with the patient today. His diagnostic data was reviewed. Infectious disease is on consultation and recommendations are greatly appreciated. To continue as advised with antibiotics. His cultures demonstrated MRSA, PsA, and anaerobes. The plan is to do 6 week course of oral doxy, cipro, and flagyl to cover recent growth. The stop date is 05/27/17. Weekly bmp, lft, cbc, and esr while on these antibiotics will be monitored with infectious disease. Offloading measures were implemented, in particular with respect to the right heel ulceration, which appears to be pressure-related. A padded boot is to be used. He was advised to hang his heel over pillows while resting in bed to float in the air to ensure proper offloading. Patient has been advised to optimize his nutrition, and his appetite is said to be good. Supplements have been recommended; a prescription for Gregorio was provided today. The purpose and proper use and expectations were discussed. A noninvasive lower extremity arterial study in which right monophasic artery was noted. The ABIs were not calculated due to noncompressibility and it looks like he has vascular disease. He did follow-up with Dr. Vincent earlier today and the notes to be requested. An arterial Doppler will be scheduled and potential intervention following. He does not have leukocytosis and his white blood cell count 8.7, sedimentation rate 47, albumin 2.3, and prealbumin 13.6. I have reviewed the x-ray CD including a right foot lateral and calcaneal axial. No acute fractures or dislocations or soft tissue emphysema or foreign body were identified. There is no osseous destruction or periosteal reaction suggestive of osteomyelitis adjacent to the ulcer site. He understands serial labs and x-rays will be performed to monitor for bone infection development. MRI or other advanced imaging will be considered pending his continued clinical progression. His family member reports he is able to obtain an MRI if needed in the future and does not have any retained implants of pacemaker. Santyl is to be used topically relative to the right heel ulceration, as well as offloading measures. Collagen hydrogel is to be used topically relative to the left lower extremity wound. He understands he is at risk for limb loss and further workup is warranted. I answered all his questions. To return to the wound care center in 1 week or sooner if there are any questions or concerns.
[2017-04-29 08:23] VITALS: BP 119/66; PULSE 73; RESP 18; TEMP 36
--- NOTE | 2017-04-29 09:23 | PCM.WC.PN ---
(1) Pressure ulcer, heel, right, unstageable Status: Chronic Current Visit: Yes Code(s): L89.610 - Pressure ulcer of right heel, unstageable (2) Physical deconditioning Status: Chronic Current Visit: Yes Code(s): R53.81 - Other malaise (3) PAD (peripheral artery disease) Status: Chronic Current Visit: Yes Code(s): I73.9 - Peripheral vascular disease, unspecified (4) Ulcer of right lower extremity with fat layer exposed Status: Chronic Current Visit: Yes Code(s): L97.912 - Non-pressure chronic ulcer of unspecified part of right lower leg with fat layer exposed (5) Ulcer of left lower extremity with fat layer exposed Status: Chronic Current Visit: Yes Code(s): L97.922 - Non-pressure chronic ulcer of unspecified part of left lower leg with fat layer exposed (6) Type 2 diabetes mellitus with diabetic polyneuropathy Status: Chronic Current Visit: Yes Code(s): E11.42 - Type 2 diabetes mellitus with diabetic polyneuropathy (7) Malnutrition Status: Suspected Current Visit: Yes Code(s): E46 - Unspecified protein-calorie malnutrition Type of Wound Date of Service: 04/29/17 Chief Complaint: Ulcerations/wounds of both legs. Right heel ulcer with resolving infection History of Wound: This is an 81-year-old male who is a resident of [facility] in [place], [place]. The patient is deconditioned, and nonambulatory. He denies recent injury. He denies fever, chill, nausea, vomiting, odor, or redness. He did attend his vascular surgery and he has a follow-up appointment Dr. Vincent next Thursday. He did have an x-ray obtained and I obtain a CD in the mail and have reviewed this without radiographic signs of osteomyelitis. He was previously treated for an infection that was growing Pseudomonas and MRSA. He does report some loose stools but continues to have formed stools well. Infectious disease did evaluate the patient and he is continuing on antibiotics as recommended. He does have pain in this is usually controlled well with Tylenol. He is with his son today. Progress of Wound: Stable - Physical Exam Vital Signs Temp Pulse Resp BP 96.8 F L 73 18 119/66 04/29/17 08:23 04/29/17 08:23 04/29/17 08:23 04/29/17 08:23 General: Alert, Oriented x3, Cooperative Extremities: No cyanosis, Capillary Refill Less than 3 Seconds, No Calf Tenderness - Negative [place] and Vera bilateral, Diminished Peripheral Pulses Skin: Ulcer/ Wound - No purulence, no erythema, streaking, no odor. The heel ulcer site is fibrous, decreased liquefied tissue, increased granulation tissue, and scant eschar. The peripheral skin is atrophic and hairless. There is full epithelialization noted to the anterior right leg. scant skin discontinuity to the anterior left leg noted Wound Measurements and Assessment WC - Nurse 1 - General Ulcer Measurement Start: 04/22/17 11:22 Freq: Status: Active Protocol: Activity Type Activity Date Activity User E-Sign Co-Sign Detail Recorded Client Recorded Date Recorded By Document 04/29/17 08:23 DL [id number] 04/29/17 08:40 DL 04/29/17 08:23 Wound Center Nurse 1 [Ulcer Assessment] #3- RT ESPARZA -Current Size (cm) - Length 0 -Current Size (cm) - Width 0 -Total Square Cm 0 -Photo Taken Yes -Exudate Amt None Present (0 %) -Wound Margin Flat & Intact -Granulation Amt Large (67-100%) -Granulation Quality [place] -Necrosis Amt None Present (0 %) -Structure Exposed N/A -Texture (Abi-wound Skin Appearance) Scarring -Moisture (Abi-wound Skin Appearance Dry/Scaly ) -Color (Abi-wound Skin Appearance) Hemosiderin Staining -Temperature (Abi-wound Skin No Abnormality Appearance) (Pt Warm) -Ulcer Cleansing Rinsed/ Irrigated with Saline -Foul Odor after Cleansing No #2 R Heel -Current Size (cm) - Length 4 -Current Size (cm) - Width 5 -Current Size (cm) - Depth 0.4 -Total Square Cm 20 -Photo Taken No -Exudate Amt Large (67-100%) -Exudate Type Serosanguineous -Wound Margin Distinct, Outline Attached -Granulation Amt Small (1-33%) -Granulation Quality [place] -Necrosis Amt Large (67-100%) -Necrotic Tissue Type Adherent Slough -Structure Exposed N/A -Texture (Abi-wound Skin Appearance) Scarring -Moisture (Abi-wound Skin Appearance Maceration ) -Color (Abi-wound Skin Appearance) Erythema Hemosiderin Staining -Temperature (Abi-wound Skin No Abnormality Appearance) (Pt Warm) -Ulcer Cleansing Rinsed/ Irrigated with Saline -Foul Odor after Cleansing No -Anesthetic Used 4% Lidocaine Solution #1 L Esparza cluster -Current Size (cm) - Length 0.2 -Current Size (cm) - Width 0.2 -Current Size (cm) - Depth 0.1 -Total Square Cm 0.04 -Photo Taken No -Exudate Amt None Present (0 %) -Wound Margin Flat & Intact -Granulation Amt None Present (0 %) -Necrosis Amt Small (1-33%) -Necrotic Tissue Type Adherent Slough -Structure Exposed N/A -Texture (Abi-wound Skin Appearance) No Abnormality -Moisture (Abi-wound Skin Appearance No Abnormality ) -Color (Abi-wound Skin Appearance) No Abnormality -Temperature (Abi-wound Skin No Abnormality Appearance) (Pt Warm) -Ulcer Cleansing Rinsed/ Irrigated with Saline -Anesthetic Used 4% Lidocaine Solution [Edema Assessment] -Right Calf (cm) 30 -Right Ankle (cm) 20 -Left Calf (cm) 30.1 -Left Ankle (cm) 18.3 WC - Nurse 2 - General Ulcer CM Notes Start: 04/22/17 11:22 Freq: Status: Active Protocol: Activity Type Activity Date Activity User E-Sign Co-Sign Detail Recorded Client Recorded Date Recorded By Document 04/29/17 09:00 [id number] 04/29/17 09:03 04/29/17 09:00 Wound Center Nurse 2 [Procedure/Treatment] #3- RT ESPARZA -Time 09:01 -Correct Patient Yes -Correct Side, Site, Position Yes -Correct Procedure Yes -Procedure Performed Yes -Post Debridement Size (cm) - Length 0 -Post Debridement Size (cm) - Width 0 -Post Debridement Size (cm) - Depth 0 -Total Square Cm 0 -Wound/Ulcer Outcome Healed- Epithelialized -Ulcer Cleansing Rinsed/ Irrigated with Saline -Foul Odor after Cleansing No -Bioengineered Tissue No -Bleeding Controlled with NA -Treatment Response Procedure Tolerated Well #2 R Heel -Time 09:01 -Correct Patient Yes -Correct Side, Site, Position Yes -Correct Procedure Yes -Procedure Performed Yes -Type of Procedure Debridement -Clinical Debridement Subcutaneous -Post Debridement Size (cm) - Length 4.1 -Post Debridement Size (cm) - Width 5.1 -Post Debridement Size (cm) - Depth 0.4 -Total Square Cm 20.91 -Wound/Ulcer Outcome Not Healed -Ulcer Cleansing Rinsed/ Irrigated with Saline -Foul Odor after Cleansing No -Bioengineered Tissue No -Topical Lidocaine (%) 5 -Bleeding Controlled with Pressure -Treatment Response Procedure Tolerated Well #1 L Esparza cluster -Time 09:01 -Correct Patient Yes -Correct Side, Site, Position Yes -Correct Procedure Yes -Procedure Performed Yes -Post Debridement Size (cm) - Length 0.2 -Post Debridement Size (cm) - Width 0.2 -Post Debridement Size (cm) - Depth 0.1 -Total Square Cm 0.04 -Wound/Ulcer Outcome Not Healed -Ulcer Cleansing Rinsed/ Irrigated with Saline -Foul Odor after Cleansing No -Bioengineered Tissue No -Bleeding Controlled with NA -Other no debridement today -Treatment Response Procedure Tolerated Well [See Physician Procedure note for Specifics] Pain Scale: 0-10 Numeric [Pain] -Is Patient Pain Free? Yes Musculoskeletal: No Tenderness to Palpation of Joints or Extremities, Tenderness - heel wound debridement and manipulation noted Neurological: - - lack of epicritic sensation noted via light touch Psych/Mental Status: Normal Affect, Appropriate Debridement Note Post-Debridement Measurements/Treatment WC - Nurse 2 - General Ulcer CM Notes Start: 04/22/17 11:22 Freq: Status: Active Protocol: Activity Type Activity Date Activity User E-Sign Co-Sign Detail Recorded Client Recorded Date Recorded By Document 04/22/17 12:16 TM [id number] 04/22/17 12:24 TM Document 04/29/17 09:00 [id number] 04/29/17 09:03 TM 04/22/17 04/29/17 12:16 09:00 Pain Scale: 0-10 Numeric Is Patient Pain Free? Yes Wound Center Nurse 2 #3- RT ESPARZA -Time 12:21 09:01 -Correct Patient Yes Yes -Correct Side, Site, Position Yes Yes -Correct Procedure Yes Yes -Procedure Performed Yes Yes -Type of Procedure Debridement -Clinical Debridement Subcutaneous -Post Debridement Size (cm) - Length 1.9 0 -Post Debridement Size (cm) - Width 0.5 0 -Post Debridement Size (cm) - Depth 0.1 0 -Total Square Cm 0.95 0 -Wound/Ulcer Outcome Not Healed Healed- Epithelialized -Ulcer Cleansing Rinsed/ Rinsed/ Irrigated with Irrigated with Saline Saline -Foul Odor after Cleansing No No -Bioengineered Tissue No No -Topical Lidocaine (%) 4 -Bleeding Controlled with Pressure NA -Treatment Response Procedure Procedure Tolerated Well Tolerated Well #2 R Heel -Time 12:21 09:01 -Correct Patient Yes Yes -Correct Side, Site, Position Yes Yes -Correct Procedure Yes Yes -Procedure Performed Yes Yes -Type of Procedure Debridement Debridement -Clinical Debridement Subcutaneous Subcutaneous -Post Debridement Size (cm) - Length 5.9 4.1 -Post Debridement Size (cm) - Width 5.1 5.1 -Post Debridement Size (cm) - Depth 0.2 0.4 -Total Square Cm 30.09 20.91 -Wound/Ulcer Outcome Not Healed Not Healed -Ulcer Cleansing Rinsed/ Rinsed/ Irrigated with Irrigated with Saline Saline -Foul Odor after Cleansing No No -Bioengineered Tissue No No -Topical Lidocaine (%) 5 -Bleeding Controlled with Pressure Pressure -Treatment Response Procedure Procedure Tolerated Well Tolerated Well #1 L Esparza cluster -Time 12:22 09:01 -Correct Patient Yes Yes -Correct Side, Site, Position Yes Yes -Correct Procedure Yes Yes -Procedure Performed Yes Yes -Type of Procedure Debridement -Clinical Debridement Subcutaneous -Post Debridement Size (cm) - Length 3.1 0.2 -Post Debridement Size (cm) - Width 1.1 0.2 -Post Debridement Size (cm) - Depth 0.1 0.1 -Total Square Cm 3.41 0.04 -Wound/Ulcer Outcome Not Healed Not Healed -Ulcer Cleansing Rinsed/ Rinsed/ Irrigated with Irrigated with Saline Saline -Foul Odor after Cleansing No No -Bioengineered Tissue No No -Topical Lidocaine (%) 4 -Bleeding Controlled with Pressure NA -Other no debridement today -Treatment Response Procedure Procedure Tolerated Well Tolerated Well Wound debrided: heel Laterality: Right Wound Grade/Stage: grade 3 Type of Debridement: Excisional debridement Anesthesia Used: 4% Lidocaine Solution Depth: in the subcutaneous layer Percentage of wound debrided: 100 Instrument Used: #15 blade Tissue Removed: fibrous, devitalized subcutaneous, biofilm, slough Severity: Fat Layer Exposed Amount of bleeding with debridement: Mild Bleeding Controlled with: Pressure Patient tolerated procedure well - Additional Wound Wound debrided: anterior leg Laterality: Left Wound Grade/Stage: grade 1 Type of Debridement: Excisional debridement Anesthesia Used: 4% Lidocaine Solution Depth: in the subcutaneous layer Percentage of wound debrided: 100 Instrument Used: #15 blade Tissue Removed: fibrous, devitalized subcutaneous, biofilm, slough Severity: Fat Layer Exposed Amount of bleeding with debridement: Mild Bleeding Controlled with: Pressure Patient tolerated procedure: Patient tolerated procedure well Assessment/Plan Active Problems Pressure ulcer, heel, right, unstageable (Chronic) Physical deconditioning (Chronic) PAD (peripheral artery disease) (Chronic) Ulcer of right lower extremity with fat layer exposed (Chronic) Ulcer of left lower extremity with fat layer exposed (Chronic) Type 2 diabetes mellitus with diabetic polyneuropathy (Chronic) Assessment: Ulcer right leg - healed. Ulcer left leg with fat exposed. grade 3 ulcer right heel with previous infected muscle / deep tissue; osteomyelitis cannot be confirmed at this time. Diabetes with peripheral neuropathy. Peripheral vascular disease. Gait impairment. Malnutrition suspected. Other comorbidities. On anticoagulation chronic use Plan: I reviewed and discussed the case with the patient today. His diagnostic data was reviewed. Infectious disease is on consultation and recommendations are greatly appreciated. to follow up as advised. I informed him to also follow up with ID and his house physician in regards to his reported loose stool. It does not sound consistent with routine diarrhea, however this developement will be monitored and is a concern given he is on antibiotics. He was educated about this and his son demonstrates understanding. To continue as advised with antibiotics. His cultures demonstrated MRSA, PsA, and anaerobes. The plan is to do 6 week course of oral doxy, cipro, and flagyl to cover recent growth. The stop date is 05/27/17. Weekly bmp, lft, cbc, and esr while on these antibiotics will be monitored with infectious disease. Offloading measures were implemented, in particular with respect to the right heel ulceration, which appears to be pressure-related and further complicated with diabetes and lack of arterial perfusion. To offload by hanging heel over a pillow to float in the air. A future PRAFO boot will also be considered. Patient has been advised to optimize his nutrition, and his appetite is said to be good. Supplements have been recommended; a prescription for Gregorio was provided and he continues to take this twice daily. The purpose and proper use and expectations were discussed. A noninvasive lower extremity arterial study in which right monophasic artery was noted. The ABIs were not calculated due to noncompressibility and it looks like he has vascular disease. He does not have leukocytosis and his white blood cell count 8.7, sedimentation rate 47, albumin 2.3, and prealbumin 13.6. I have reviewed the x-ray CD including a right foot lateral and calcaneal axial. No acute fractures or dislocations or soft tissue emphysema or foreign body were identified. There is no osseous destruction or periosteal reaction suggestive of osteomyelitis adjacent to the ulcer site. He understands serial labs and x-rays will be performed to monitor for bone infection development. MRI or other advanced imaging will be considered pending his continued clinical progression. Santyl is to be used topically relative to the right heel ulceration, as well as offloading measures. Collagen hydrogel is to be used topically relative to the left lower extremity wound. He understands he is at risk for limb loss and further workup is warranted. I answered all his questions. To return to the wound care center in 1 week or sooner if there are any questions or concerns.
[2017-05-06 08:37] VITALS: BP 116/66; PULSE 85; RESP 18; TEMP 36
--- NOTE | 2017-05-06 10:48 | PCM.WC.PN ---
(1) Physical deconditioning Status: Chronic Current Visit: Yes Code(s): R53.81 - Other malaise (2) PAD (peripheral artery disease) Status: Chronic Current Visit: Yes Code(s): I73.9 - Peripheral vascular disease, unspecified (3) Ulcer of left lower extremity with fat layer exposed Status: Resolved Current Visit: Yes Code(s): L97.922 - Non-pressure chronic ulcer of unspecified part of left lower leg with fat layer exposed (4) Type 2 diabetes mellitus with diabetic polyneuropathy Status: Chronic Current Visit: Yes Code(s): E11.42 - Type 2 diabetes mellitus with diabetic polyneuropathy (5) Malnutrition Status: Suspected Current Visit: Yes Code(s): E46 - Unspecified protein-calorie malnutrition (6) 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 Right heel ulcer with resolving infection History of Wound: This is an 81-year-old male who is a resident of [facility] in [place], [place]. The patient is deconditioned, and nonambulatory. He denies recent injury. She has hearing aid use today. He denies fever, chill, nausea, vomiting, odor, or redness. He did attend his vascular surgery and he has a Doppler examination tomorrow and additional follow-up appointment Dr. Vincent next Thursday. He did have an x-ray obtained and I obtain a CD in the mail and have reviewed this without radiographic signs of osteomyelitis. He was previously treated for deep tissue infection that was growing Pseudomonas and MRSA. He continues on antibiotics per infectious disease. He is with his son today. He is open to considering hyperbaric oxygen therapy as an advanced treatment. Progress of Wound: Improving quality - Physical Exam Vital Signs Temp Pulse Resp BP 96.8 F L 85 18 116/66 05/06/17 08:37 05/06/17 08:37 05/06/17 08:37 05/06/17 08:37 General: Alert, Oriented x3, Cooperative Extremities: No cyanosis, Capillary Refill Less than 3 Seconds, No Calf Tenderness - negative Gordo and Vera right, Diminished Peripheral Pulses, Edema - Mild Skin: Ulcer/ Wound - No purulence, no erythema, no streaking, no odor. his right heel ulcer now has resolved eschar and has exposed fascia and adipose tissue. The wound bed is fibrous and granular. There is no direct visualization of the bone. This wound is very tender to touch. There is full epithelialization to bilateral anterior legs in these previous wound sites are healed today., - - His skin is hairless and atrophic Wound Measurements and Assessment WC - Nurse 1 - General Ulcer Measurement Start: 04/22/17 11:22 Freq: Status: Active Protocol: Activity Type Activity Date Activity User E-Sign Co-Sign Detail Recorded Client Recorded Date Recorded By Document 05/06/17 08:37 DL [id number] 05/06/17 08:49 DL 05/06/17 08:37 Wound Center Nurse 1 [Ulcer Assessment] #2 R Heel -Current Size (cm) - Length 3.8 -Current Size (cm) - Width 4.8 -Current Size (cm) - Depth 0.2 -Total Square Cm 18.24 -Photo Taken No -Exudate Amt Medium (34-66%) -Exudate Type Serosanguineous -Wound Margin Distinct, Outline Attached -Granulation Amt Medium (34-66%) -Granulation Quality [place] -Necrosis Amt Medium (34-66%) -Necrotic Tissue Type Adherent Slough -Structure Exposed N/A -Texture (Abi-wound Skin Appearance) Scarring -Moisture (Abi-wound Skin Appearance No Abnormality ) -Color (Abi-wound Skin Appearance) No Abnormality -Ulcer Cleansing Wound Cleanser -Foul Odor after Cleansing No -Anesthetic Used 4% Lidocaine Solution #1 L Esparza cluster -Current Size (cm) - Length 0 -Current Size (cm) - Width 0 -Current Size (cm) - Depth 0 -Total Square Cm 0 -Photo Taken Yes -Exudate Amt None Present (0 %) -Wound Margin Flat & Intact -Granulation Amt Large (67-100%) -Granulation Quality [place] -Necrosis Amt None Present (0 %) -Structure Exposed N/A -Texture (Abi-wound Skin Appearance) Scarring -Moisture (Abi-wound Skin Appearance No Abnormality ) -Color (Abi-wound Skin Appearance) No Abnormality -Temperature (Abi-wound Skin No Abnormality Appearance) (Pt Warm) -Ulcer Cleansing Rinsed/ Irrigated with Saline -Foul Odor after Cleansing No [Edema Assessment] -Left Calf (cm) 30.5 -Left Ankle (cm) 21 WC - Nurse 2 - General Ulcer CM Notes Start: 04/22/17 11:22 Freq: Status: Active Protocol: Activity Type Activity Date Activity User E-Sign Co-Sign Detail Recorded Client Recorded Date Recorded By Document 05/06/17 09:04 TM [id number] 05/06/17 09:06 TM 05/06/17 09:04 Wound Center Nurse 2 [Procedure/Treatment] #2 R Heel -Time 09:04 -Correct Patient Yes -Correct Side, Site, Position Yes -Correct Procedure Yes -Procedure Performed Yes -Type of Procedure Debridement -Clinical Debridement Subcutaneous -Post Debridement Size (cm) - Length 3.9 -Post Debridement Size (cm) - Width 4.9 -Post Debridement Size (cm) - Depth 0.2 -Total Square Cm 19.11 -Wound/Ulcer Outcome Not Healed -Ulcer Cleansing Rinsed/ Irrigated with Saline -Foul Odor after Cleansing No -Bioengineered Tissue No -Topical Lidocaine (%) 4 -Bleeding Controlled with Pressure -Treatment Response Procedure Tolerated Well #1 L Esparza cluster -Time 09:04 -Correct Patient Yes -Correct Side, Site, Position Yes -Correct Procedure Yes -Procedure Performed Yes -Post Debridement Size (cm) - Length 0 -Post Debridement Size (cm) - Width 0 -Post Debridement Size (cm) - Depth 0 -Total Square Cm 0 -Wound/Ulcer Outcome Healed- Epithelialized -Ulcer Cleansing Rinsed/ Irrigated with Saline -Foul Odor after Cleansing No -Bioengineered Tissue No -Bleeding Controlled with NA -Treatment Response Procedure Tolerated Well [See Physician Procedure note for Specifics] Pain Scale: 0-10 Numeric [Pain] -Is Patient Pain Free? Yes Musculoskeletal: No Tenderness to Palpation of Joints or Extremities, Muscle Wasting Neurological: - - Lack of epicritic sensation to very light touch right Psych/Mental Status: Normal Affect, Appropriate Debridement Note Post-Debridement Measurements/Treatment WC - Nurse 2 - General Ulcer CM Notes Start: 04/22/17 11:22 Freq: Status: Active Protocol: Activity Type Activity Date Activity User E-Sign Co-Sign Detail Recorded Client Recorded Date Recorded By Document 04/22/17 12:16 TM [id number] 04/22/17 12:24 TM Document 04/29/17 09:00 TM [id number] 04/29/17 09:03 TM Document 05/06/17 09:04 [id number] 05/06/17 09:06 TM 04/22/17 04/29/17 05/06/17 12:16 09:00 09:04 Pain Scale: 0-10 Numeric Is Patient Pain Free? Yes Yes Wound Center Nurse 2 #3- RT ESPARZA -Time 12: 09:01 -Correct Patient Yes Yes -Correct Side, Site, Position Yes Yes -Correct Procedure Yes Yes -Procedure Performed Yes Yes -Type of Procedure Debridement -Clinical Debridement Subcutaneous -Post Debridement Size (cm) - Length 1.9 0 -Post Debridement Size (cm) - Width 0.5 0 -Post Debridement Size (cm) - Depth 0.1 0 -Total Square Cm 0.95 0 -Wound/Ulcer Outcome Not Healed Healed- Epithelialized -Ulcer Cleansing Rinsed/ Rinsed/ Irrigated with Irrigated with Saline Saline -Foul Odor after Cleansing No No -Bioengineered Tissue No No -Topical Lidocaine (%) 4 -Bleeding Controlled with Pressure NA -Treatment Response Procedure Procedure Tolerated Well Tolerated Well #2 R Heel -Time 12: 09:01 09:04 -Correct Patient Yes Yes Yes -Correct Side, Site, Position Yes Yes Yes -Correct Procedure Yes Yes Yes -Procedure Performed Yes Yes Yes -Type of Procedure Debridement Debridement Debridement -Clinical Debridement Subcutaneous Subcutaneous Subcutaneous -Post Debridement Size (cm) - Length 5.9 4.1 3.9 -Post Debridement Size (cm) - Width 5.1 5.1 4.9 -Post Debridement Size (cm) - Depth 0.2 0.4 0.2 -Total Square Cm 30.09 20.91 19.11 -Wound/Ulcer Outcome Not Healed Not Healed Not Healed -Ulcer Cleansing Rinsed/ Rinsed/ Rinsed/ Irrigated with Irrigated with Irrigated with Saline Saline Saline -Foul Odor after Cleansing No No No -Bioengineered Tissue No No No -Topical Lidocaine (%) 5 4 -Bleeding Controlled with Pressure Pressure Pressure -Treatment Response Procedure Procedure Procedure Tolerated Well Tolerated Well Tolerated Well #1 L Esparza cluster -Time 12: 09:01 09:04 -Correct Patient Yes Yes Yes -Correct Side, Site, Position Yes Yes Yes -Correct Procedure Yes Yes Yes -Procedure Performed Yes Yes Yes -Type of Procedure Debridement -Clinical Debridement Subcutaneous -Post Debridement Size (cm) - Length 3.1 0.2 0 -Post Debridement Size (cm) - Width 1.1 0.2 0 -Post Debridement Size (cm) - Depth 0.1 0.1 0 -Total Square Cm 3.41 0.04 0 -Wound/Ulcer Outcome Not Healed Not Healed Healed- Epithelialized -Ulcer Cleansing Rinsed/ Rinsed/ Rinsed/ Irrigated with Irrigated with Irrigated with Saline Saline Saline -Foul Odor after Cleansing No No No -Bioengineered Tissue No No No -Topical Lidocaine (%) 4 -Bleeding Controlled with Pressure NA NA -Other no debridement today -Treatment Response Procedure Procedure Procedure Tolerated Well Tolerated Well Tolerated Well Wound debrided: medial heel Laterality: Right Wound Grade/Stage: grade 3 Type of Debridement: Excisional debridement Anesthesia Used: 4% Lidocaine Solution Depth: in the subcutaneous layer, to muscle Percentage of wound debrided: 100 Instrument Used: #15 blade, Forceps Tissue Removed: fibrous, devitalized subcutaneous, biofilm, slough, devitalized fascua Severity: Necrosis of Muscle Amount of bleeding with debridement: Mild Bleeding Controlled with: Pressure Patient tolerated procedure well Assessment/Plan Active Problems 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 Ulcer left leg - healed. grade 3 ulcer right heel with necrotic infected muscle / deep tissue; osteomyelitis cannot be confirmed at this time. Diabetes with peripheral neuropathy. Peripheral vascular disease. Gait impairment. Malnutrition suspected. Other comorbidities. On anticoagulation chronic use Plan: I reviewed and discussed the case with the patient today. His diagnostic data was reviewed. Infectious disease is on consultation and recommendations are greatly appreciated. To follow up as advised. He was educated about this and his son demonstrates understanding. To continue as advised with antibiotics. His cultures demonstrated MRSA, PsA, and anaerobes. The plan is to do 6 week course of oral doxy, cipro, and flagyl to cover recent growth. The stop date is 05/27/17. Weekly bmp, lft, cbc, and esr while on these antibiotics will be monitored with infectious disease. Offloading measures were implemented, in particular with respect to the right heel ulceration, which appears to be pressure-related and further complicated with diabetes and lack of arterial perfusion. To offload by hanging heel over a pillow to float in the air. A future PRAFO boot will also be considered. Patient has been advised to optimize his nutrition, and his appetite is said to be good. Supplements have been recommended; a prescription for Gregorio was provided and he continues to take this twice daily. The purpose and proper use and expectations were discussed. A noninvasive lower extremity arterial study in which right monophasic artery was noted. The ABIs were not calculated due to noncompressibility and it looks like he has vascular disease. He does not have leukocytosis and his white blood cell count 8.7, sedimentation rate 47, albumin 2.3, and prealbumin 13.6. I have reviewed the x-ray CD including a right foot lateral and calcaneal axial. No acute fractures or dislocations or soft tissue emphysema or foreign body were identified. There is no osseous destruction or periosteal reaction suggestive of osteomyelitis adjacent to the ulcer site. He understands serial labs and x-rays will be performed to monitor for bone infection development. MRI or other advanced imaging will be considered pending his continued clinical progression. Santyl is to be used topically relative to the right heel ulceration, as well as offloading measures. The eschar is resolving well as planned. Transition to an advanced wound care product will be considered in the near future as his tissue quality continues to improve and this is more appropriate. To discontinue dressings to the legs because the wounds are healed. I recommend hyperbaric oxygen therapy as a treatment consideration at this time. He does have a grade 3 ulcer and is at risk for limb loss and ongoing delayed healing. He understands this is an advanced healing technique that should be used in conjunction with traditional wound care treatment measures. The indications, procedure, needed medical clearance process, and anticipated healing time and treatment course were discussed in detail today. He is amenable to consider this. The concern at this time is transportation availability from his long-term facility [facility]. His family in the wound care center nursing staff will look into preauthorization and travel opportunities. Upon confirmation of his available in the near future, he will go for a hyperbaric oxygen therapy history and physical with consultation and proceed with the necessary tests and treatment set up if this goes well. I answered all his questions. He is amenable to watching the educational video on speaking with nursing staff in further detail about this opportunity today. To return to the wound care center in 1 week or sooner if there are any questions or concerns.
[2017-05-13 14:17] VITALS: BP 108/65; PULSE 80; RESP 18; TEMP 36.6
--- NOTE | 2017-05-13 16:55 | PCM.WC.PN ---
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 Current Visit: Yes Code(s): L97.513 - Non-pressure chronic ulcer of other part of right foot with necrosis of muscle (2) Physical deconditioning Status: Chronic Current Visit: Yes Code(s): R53.81 - Other malaise (3) PAD (peripheral artery disease) Status: Chronic Current Visit: Yes Code(s): I73.9 - Peripheral vascular disease, unspecified (4) Ulcer of left lower extremity with fat layer exposed Status: Resolved Current Visit: Yes Code(s): L97.922 - Non-pressure chronic ulcer of unspecified part of left lower leg with fat layer exposed (5) Type 2 diabetes mellitus with diabetic polyneuropathy Status: Chronic Current Visit: Yes Code(s): E11.42 - Type 2 diabetes mellitus with diabetic polyneuropathy (6) Malnutrition Status: Suspected Current Visit: Yes Code(s): E46 - Unspecified protein-calorie malnutrition Type of Wound Date of Service: 05/13/17 Chief Complaint: . Right heel ulcer with resolving infection History of Wound: This is an 81-year-old male who is a resident of [facility] in [place], [place]. The patient is deconditioned, and nonambulatory. He denies fever, chill, nausea, vomiting, odor, or redness. He did attend his vascular surgery and he has a Doppler examination tomorrow and additional follow-up appointment Dr. Vincent next Thursday. He was previously treated for deep tissue infection that was growing Pseudomonas and MRSA. He continues on antibiotics per infectious disease. He is with his son today. He is open to considering hyperbaric oxygen therapy as an advanced treatment. He is still not been able to confirm if he has transportation available to take him to the sessions 5 days a week. He is waiting on insurance preauthorization and his son is helping him look into this. Progress of Wound: Improving quality - Physical Exam Vital Signs Temp Pulse Resp BP 98 F 80 18 108/65 05/13/17 14:17 05/13/17 14:17 05/13/17 14:17 05/13/17 14:17 General: Alert, Oriented x3, Cooperative HEENT: Atraumatic Extremities: No cyanosis, Capillary Refill Less than 3 Seconds, No Calf Tenderness, Diminished Peripheral Pulses, Peripheral Pulses Normal Skin: Ulcer/ Wound - No purulence, no erythema, no streaking, no acute infection. Continued decreased fibrous tissue and increased granulation tissue is noted. There is no bogginess on palpation of exposed bone noted. Wound Measurements and Assessment WC - Nurse 1 - General Ulcer Measurement Start: 04/22/17 11:22 Freq: Status: Active Protocol: Activity Type Activity Date Activity User E-Sign Co-Sign Detail Recorded Client Recorded Date Recorded By Document 05/13/17 14:17 RB [id number] 05/13/17 14:22 RB 05/13/17 14:17 Wound Center Nurse 1 [Ulcer Assessment] #2 R Heel -Combined with other wound No -Current Size (cm) - Length 3.5 -Current Size (cm) - Width 5 -Current Size (cm) - Depth 0.1 -Total Square Cm 17.5 -Photo Taken No -Epithelialization Small 1-33% -Tunneling No -Undermining/Tunneling No -Circular Undermining No -Classification - Thickness Full Thickness without Exposed Support Structure -Exudate Amt Small (1-33%) -Exudate Type Serosanguineous -Wound Margin Distinct, Outline Attached -Granulation Amt Medium (34-66%) -Granulation Quality [place] -Slough/Fibrin Yes -Necrosis Amt Medium (34-66%) -Necrotic Tissue Type Adherent Slough -Structure Exposed N/A -Texture (Abi-wound Skin Appearance) Assessed -Moisture (Abi-wound Skin Appearance Assessed ) -Color (Abi-wound Skin Appearance) Assessed -Temperature (Abi-wound Skin No Abnormality Appearance) (Pt Warm) -Tenderness on Palpation (Abi-wound No Skin Appearance) -Ulcer Cleansing Rinsed/ Irrigated with Saline -Foul Odor after Cleansing No -Anesthetic Used 4% Lidocaine Solution [Edema Assessment] -Lower Limb Edema Present Yes -Right Calf (cm) 31.5 -Right Ankle (cm) 20.1 WC - Nurse 2 - General Ulcer CM Notes Start: 04/22/17 11:22 Freq: Status: Active Protocol: Activity Type Activity Date Activity User E-Sign Co-Sign Detail Recorded Client Recorded Date Recorded By Document 05/13/17 15:02 TM [id number] 05/13/17 15:07 TM 05/13/17 15:02 Wound Center Nurse 2 [Procedure/Treatment] #2 R Heel -Time 15:02 -Correct Patient Yes -Correct Side, Site, Position Yes -Correct Procedure Yes -Procedure Performed Yes -Type of Procedure Debridement -Clinical Debridement Muscle -Post Debridement Size (cm) - Length 2.6 -Post Debridement Size (cm) - Width 5.1 -Post Debridement Size (cm) - Depth 0.1 -Total Square Cm 13.26 -Wound/Ulcer Outcome Not Healed -Ulcer Cleansing Rinsed/ Irrigated with Saline -Foul Odor after Cleansing No -Bioengineered Tissue No -Topical Lidocaine (%) 4 -Bleeding Controlled with Pressure -Treatment Response Procedure Tolerated Well [See Physician Procedure note for Specifics] Pain Scale: 0-10 Numeric [Pain] -Is Patient Pain Free? Yes Musculoskeletal: No Tenderness to Palpation of Joints or Extremities, Muscle Wasting, Tenderness - Wound manipulation pain noted Neurological: - - Lack of epicritic sensation to light touch bilateral lower extremities Psych/Mental Status: Normal Affect, Appropriate Debridement Note Post-Debridement Measurements/Treatment WC - Nurse 2 - General Ulcer CM Notes Start: 04/22/17 11:22 Freq: Status: Active Protocol: Activity Type Activity Date Activity User E-Sign Co-Sign Detail Recorded Client Recorded Date Recorded By Document 04/22/17 12:16 TM [id number] 04/22/17 12:24 TM Document 04/29/17 09:00 TM [id number] 04/29/17 09:03 TM Document 05/06/17 09:04 TM [id number] 05/06/17 09:06 TM Document 05/13/17 15:02 TM [id number] 05/13/17 15:07 TM 04/22/17 04/29/17 05/06/17 12:16 09:00 09:04 Pain Scale: 0-10 Numeric Is Patient Pain Free? Yes Yes Wound Center Nurse 2 #3- RT [place] -Time 12:21 09:01 -Correct Patient Yes Yes -Correct Side, Site, Position Yes Yes -Correct Procedure Yes Yes -Procedure Performed Yes Yes -Type of Procedure Debridement -Clinical Debridement Subcutaneous -Post Debridement Size (cm) - Length 1.9 0 -Post Debridement Size (cm) - Width 0.5 0 -Post Debridement Size (cm) - Depth 0.1 0 -Total Square Cm 0.95 0 -Wound/Ulcer Outcome Not Healed Healed- Epithelialized -Ulcer Cleansing Rinsed/ Rinsed/ Irrigated with Irrigated with Saline Saline -Foul Odor after Cleansing No No -Bioengineered Tissue No No -Topical Lidocaine (%) 4 -Bleeding Controlled with Pressure NA -Treatment Response Procedure Procedure Tolerated Well Tolerated Well #2 R Heel -Time 12:21 09:01 09:04 -Correct Patient Yes Yes Yes -Correct Side, Site, Position Yes Yes Yes -Correct Procedure Yes Yes Yes -Procedure Performed Yes Yes Yes -Type of Procedure Debridement Debridement Debridement -Clinical Debridement Subcutaneous Subcutaneous Muscle -Post Debridement Size (cm) - Length 5.9 4.1 3.9 -Post Debridement Size (cm) - Width 5.1 5.1 4.9 -Post Debridement Size (cm) - Depth 0.2 0.4 0.2 -Total Square Cm 30.09 20.91 19.11 -Wound/Ulcer Outcome Not Healed Not Healed Not Healed -Ulcer Cleansing Rinsed/ Rinsed/ Rinsed/ Irrigated with Irrigated with Irrigated with Saline Saline Saline -Foul Odor after Cleansing No No No -Bioengineered Tissue No No No -Topical Lidocaine (%) 5 4 -Bleeding Controlled with Pressure Pressure Pressure -Treatment Response Procedure Procedure Procedure Tolerated Well Tolerated Well Tolerated Well #1 L [place] cluster -Time 12:22 09:01 09:04 -Correct Patient Yes Yes Yes -Correct Side, Site, Position Yes Yes Yes -Correct Procedure Yes Yes Yes -Procedure Performed Yes Yes Yes -Type of Procedure Debridement -Clinical Debridement Subcutaneous -Post Debridement Size (cm) - Length 3.1 0.2 0 -Post Debridement Size (cm) - Width 1.1 0.2 0 -Post Debridement Size (cm) - Depth 0.1 0.1 0 -Total Square Cm 3.41 0.04 0 -Wound/Ulcer Outcome Not Healed Not Healed Healed- Epithelialized -Ulcer Cleansing Rinsed/ Rinsed/ Rinsed/ Irrigated with Irrigated with Irrigated with Saline Saline Saline -Foul Odor after Cleansing No No No -Bioengineered Tissue No No No -Topical Lidocaine (%) 4 -Bleeding Controlled with Pressure NA NA -Other no debridement today -Treatment Response Procedure Procedure Procedure Tolerated Well Tolerated Well Tolerated Well 05/13/17 15:02 Pain Scale: 0-10 Numeric Is Patient Pain Free? Yes Wound Center Nurse 2 #3- RT S[place] -Time -Correct Patient -Correct Side, Site, Position -Correct Procedure -Procedure Performed -Type of Procedure -Clinical Debridement -Post Debridement Size (cm) - Length -Post Debridement Size (cm) - Width -Post Debridement Size (cm) - Depth -Total Square Cm -Wound/Ulcer Outcome -Ulcer Cleansing -Foul Odor after Cleansing -Bioengineered Tissue -Topical Lidocaine (%) -Bleeding Controlled with -Treatment Response #2 R Heel -Time 15:02 -Correct Patient Yes -Correct Side, Site, Position Yes -Correct Procedure Yes -Procedure Performed Yes -Type of Procedure Debridement -Clinical Debridement Muscle -Post Debridement Size (cm) - Length 2.6 -Post Debridement Size (cm) - Width 5.1 -Post Debridement Size (cm) - Depth 0.1 -Total Square Cm 13.26 -Wound/Ulcer Outcome Not Healed -Ulcer Cleansing Rinsed/ Irrigated with Saline -Foul Odor after Cleansing No -Bioengineered Tissue No -Topical Lidocaine (%) 4 -Bleeding Controlled with Pressure -Treatment Response Procedure Tolerated Well #1 L [place] cluster -Time -Correct Patient -Correct Side, Site, Position -Correct Procedure -Procedure Performed -Type of Procedure -Clinical Debridement -Post Debridement Size (cm) - Length -Post Debridement Size (cm) - Width -Post Debridement Size (cm) - Depth -Total Square Cm -Wound/Ulcer Outcome -Ulcer Cleansing -Foul Odor after Cleansing -Bioengineered Tissue -Topical Lidocaine (%) -Bleeding Controlled with -Other -Treatment Response Wound debrided: heel Laterality: Right Wound Grade/Stage: grade 3 Type of Debridement: Excisional debridement Anesthesia Used: 4% Lidocaine Solution Depth: in the subcutaneous layer Percentage of wound debrided: 100 Instrument Used: #15 blade Tissue Removed: fibrous, devitalized subcutaneous, biofilm, slough Severity: Fat Layer Exposed Amount of bleeding with debridement: Mild Bleeding Controlled with: Pressure Patient tolerated procedure well Assessment/Plan Active Problems 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 Diabetes with peripheral neuropathy. Peripheral vascular disease. Gait impairment. Malnutrition suspected. Other comorbidities. On anticoagulation chronic use Plan: I reviewed and discussed the case with the patient today. His diagnostic data was reviewed. Infectious disease is on consultation and recommendations are greatly appreciated. To follow up as advised. He was educated about this and his son demonstrates understanding. To continue as advised with antibiotics. His cultures demonstrated MRSA, PsA, and anaerobes. The plan is to do 6 week course of oral doxy, cipro, and flagyl to cover recent growth. The stop date is 05/27/17. Weekly bmp, lft, cbc, and esr while on these antibiotics will be monitored with infectious disease. Offloading measures were implemented, in particular with respect to the right heel ulceration, which appears to be pressure-related and further complicated with diabetes and lack of arterial perfusion. To offload by hanging heel over a pillow to float in the air. A future PRAFO boot will also be considered. Patient has been advised to optimize his nutrition, and his appetite is said to be good. Supplements have been recommended; a prescription for Gregorio was provided and he continues to take this twice daily. The purpose and proper use and expectations were discussed. A noninvasive lower extremity arterial study in which right monophasic artery was noted. The ABIs were not calculated due to noncompressibility and it looks like he has vascular disease. He does not have leukocytosis and his white blood cell count 8.7, sedimentation rate 47, albumin 2.3, and prealbumin 13.6. I have reviewed the x-ray CD including a right foot lateral and calcaneal axial. No acute fractures or dislocations or soft tissue emphysema or foreign body were identified. There is no osseous destruction or periosteal reaction suggestive of osteomyelitis adjacent to the ulcer site. He understands serial labs and x-rays will be performed to monitor for bone infection development. MRI or other advanced imaging will be considered pending his continued clinical progression. Santyl is to be used topically relative to the right heel ulceration, as well as offloading measures. The eschar is resolved as planned. Transition to an advanced wound care product will be considered in a preauthorization will be initiated for epi fix. To discontinue dressings to the legs because the wounds are healed. I recommend hyperbaric oxygen therapy as a treatment consideration at this time. He does have a grade 3 ulcer and is at risk for limb loss and ongoing delayed healing. He understands this is an advanced healing technique that should be used in conjunction with traditional wound care treatment measures. The indications, procedure, needed medical clearance process, and anticipated healing time and treatment course were discussed in detail today. He is amenable to consider this. The concern at this time is transportation availability from his alf facility [facility]. His family in the wound care center nursing staff will look into preauthorization and travel opportunities. There has not been any development on this the past week and then will continue to seek this opportunity. Upon confirmation of his available in the near future, insurance approval will be confirmed, and then he will go for a hyperbaric oxygen therapy history and physical with consultation and proceed with the necessary tests and treatment set up if this goes well. I answered all his questions. To return to the wound care center in 1 week or sooner if there are any questions or concerns.
== END 2017-05-16 23:59 ==
LOC: WC 14:00
PROVIDERS: Family Provider Family Medicine; Visit Provider Podiatrist
DX: E11.622 Type 2 diabetes mellitus with other skin ulcer (principal); E11.42 Type 2 diabetes mellitus with diabetic polyneuropathy; Z86.14 Personal history of Methicillin resistant Staphylococcus aureus infection; R60.0 Localized edema; R09.89 Other specified symptoms and signs involving the circulatory and respiratory systems; L89.613 Pressure ulcer of right heel, stage 3; L97.822 Non-pressure chronic ulcer of other part of left lower leg with fat layer exposed; L97.812 Non-pressure chronic ulcer of other part of right lower leg with fat layer exposed; E11.51 Type 2 diabetes mellitus with diabetic peripheral angiopathy without gangrene
CPT/HCPCS: 11042; 11043; 11045; 97602

== ENCOUNTER 2017-06-10 09:00 | Outpatient (RCR) | payer MEDICARE, SELFPAY ==
[2017-05-17 00:57] VITALS: PULSE 80; RESP 18; TEMP 36.6
[2017-05-20 11:16] VITALS: BP 118/68; PULSE 73; RESP 18; TEMP 36.6
--- NOTE | 2017-05-20 13:27 | PN.PCM_ITS ---
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 Current Visit: Yes Code(s): L97.513 - Non-pressure chronic ulcer of other part of right foot with necrosis of muscle (2) Physical deconditioning Status: Chronic Current Visit: Yes Code(s): R53.81 - Other malaise (3) PAD (peripheral artery disease) Status: Chronic Current Visit: Yes Code(s): I73.9 - Peripheral vascular disease, unspecified (4) Type 2 diabetes mellitus with diabetic polyneuropathy Status: Chronic Current Visit: Yes Code(s): E11.42 - Type 2 diabetes mellitus with diabetic polyneuropathy (5) Malnutrition Status: Suspected Current Visit: Yes Code(s): E46 - Unspecified protein- calorie malnutrition Type of Wound Date of Service: 05/21/17 Chief Complaint: . Right heel ulcer with resolving infection History of Wound: This is an 81-year-old male who is a resident of [facility] in [place], [place]. The patient is deconditioned, and nonambulatory. He denies fever, chill, nausea, vomiting, odor, or redness. He did attend his vascular surgery examination and has a scheduled follow-up with vascular surgeon Dr. Vincent. He was previously treated for deep tissue infection that was growing Pseudomonas and MRSA. He continues on antibiotics per infectious disease. He is with his son today. He is open to considering hyperbaric oxygen therapy as an advanced treatment. His son reports he only has enough finances saved up to pay for 2 and half weeks of transportation and this does not seem like a viable option at this time. He is still amenable to seeking insurance preauthorization and while his son looks for other transportation options. He denies fever, chill, nausea, vomiting. Progress of Wound: Improving quality - Physical Exam Vital Signs Temp Pulse Resp BP 98 F 73 18 118/68 05/20/17 11:16 05/20/17 11:16 05/20/17 11:16 05/20/17 11:16 General: Alert, Oriented x3, Cooperative Extremities: No cyanosis, Capillary Refill Less than 3 Seconds, No Calf Tenderness - Negative Gordo and Vera bilateral, Diminished Peripheral Pulses, Edema - Mild bilateral lower extremities Skin: Ulcer/ Wound - No purulence, no erythema, streaking, no odor. There is no eschar or fibrous tissue noted. There is some intermittent fascial septal tissue noted with an over 90% granular the peripheral skin is atrophic. The previous leg ulcer sites remained healed bilateral, - - No hair bilateral lower extremities Wound Measurements and Assessment WC - Nurse 1 - General Ulcer Measurement Start: 05/20/17 11:16 Freq: Status: Active Protocol: Activity Type Activity Date Activity User E-Sign Co-Sign Detail Recorded Client Recorded Date Recorded By Document 05/20/17 11:16 RB [id number] 05/20/17 11:28 RB 05/20/17 11:16 Wound Center Nurse 1 [Ulcer Assessment] #2 R Heel -Combined with other wound No -Current Size (cm) - Length 3.3 -Current Size (cm) - Width 5 -Current Size (cm) - Depth 0.2 -Total Square Cm 16.5 -Tunneling No -Undermining/Tunneling No -Circular Undermining No -Classification - Mao Grading ( Grade 3 Diabetic Ulcer) -Exudate Amt Small (1-33%) -Exudate Type Serosanguineous -Wound Margin Distinct, Outline Attached -Granulation Amt Medium (34-66%) -Granulation Quality [place] -Slough/Fibrin Yes -Necrosis Amt Medium (34-66%) -Necrotic Tissue Type Adherent Slough -Structure Exposed Fascia N/A -Texture (Abi-wound Skin Appearance) Assessed -Moisture (Abi-wound Skin Appearance Maceration ) -Color (Abi-wound Skin Appearance) Assessed -Temperature (Abi-wound Skin No Abnormality Appearance) (Pt Warm) -Tenderness on Palpation (Abi-wound No Skin Appearance) -Ulcer Cleansing Rinsed/ Irrigated with Saline -Foul Odor after Cleansing No -Anesthetic Used 5% Lidocaine Gel - Nurse 2 - General Ulcer CM Notes Start: 05/20/17 11:16 Freq: Status: Active Protocol: Activity Type Activity Date Activity User E-Sign Co-Sign Detail Recorded Client Recorded Date Recorded By Document 05/20/17 11:43 TM [id number] 05/20/17 11:54 05/20/17 11:43 Wound Center Nurse 2 [Procedure/Treatment] -Time 11:43 -Correct Patient Yes -Correct Side, Site, Position Yes -Correct Procedure Yes -Procedure Performed Yes -Type of Procedure Debridement -Clinical Debridement Subcutaneous -Post Debridement Size (cm) - Length 3.4 -Post Debridement Size (cm) - Width 5.1 -Post Debridement Size (cm) - Depth 0.2 -Total Square Cm 17.34 -Wound/Ulcer Outcome Not Healed -Ulcer Cleansing Rinsed/ Irrigated with Saline -Foul Odor after Cleansing No -Bioengineered Tissue Yes -Type of bioengineered Tissue EPIFIX -Expiration Date 02/16/22 -Product Lot Number [id number] -Percent Used 100 -Saline Lot Number [id number] -Topical Lidocaine (%) 4 -Bleeding Controlled with Pressure -Treatment Response Procedure Tolerated Well [See Physician Procedure note for Specifics] Pain Scale: 0-10 Numeric [Pain] -Is Patient Pain Free? Yes Musculoskeletal: No Tenderness to Palpation of Joints or Extremities, Muscle Wasting, Tenderness - Wound manipulation right heel, - - No pain with heel compression and the compartments of the right lower extremity remain soft Neurological: - - Lack of epicritic sensation light touch bilateral lower extremities Psych/Mental Status: Normal Affect, Appropriate Debridement Note Post-Debridement Measurements/Treatment WC - Nurse 2 - General Ulcer CM Notes Start: 05/20/17 11:16 Freq: Status: Active Protocol: Activity Type Activity Date Activity User E-Sign Co-Sign Detail Recorded Client Recorded Date Recorded By Document 05/20/17 11:43 [id number] 05/20/17 11:54 05/20/17 11:43 Wound Center Nurse 2 #2 R Heel -Time 11:43 -Correct Patient Yes -Correct Side, Site, Position Yes -Correct Procedure Yes -Procedure Performed Yes -Type of Procedure Debridement -Clinical Debridement Subcutaneous -Post Debridement Size (cm) - Length 3.4 -Post Debridement Size (cm) - Width 5.1 -Post Debridement Size (cm) - Depth 0.2 -Total Square Cm 17.34 -Wound/Ulcer Outcome Not Healed -Ulcer Cleansing Rinsed/ Irrigated with Saline -Foul Odor after Cleansing No -Bioengineered Tissue Yes -Type of bioengineered Tissue EPIFIX -Expiration Date 02/16/22 -Product Lot Number [id number] -Percent Used 100 -Saline Lot Number [id number] -Topical Lidocaine (%) 4 -Bleeding Controlled with Pressure -Treatment Response Procedure Tolerated Well Pain Scale: 0-10 Numeric Is Patient Pain Free? 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 Diabetes with peripheral neuropathy. Peripheral vascular disease. Gait impairment. Malnutrition suspected. Other comorbidities. On anticoagulation chronic use Plan: I reviewed and discussed the case with the patient today. His diagnostic data was reviewed. Infectious disease is on consultation and recommendations are greatly appreciated. To follow up as advised. He was educated about this and his son demonstrates understanding. To continue as advised with antibiotics. His cultures demonstrated MRSA, PsA, and anaerobes. The plan is to do 6 week course of oral doxy, cipro, and flagyl to cover recent growth. The stop date is 05/27/17. Weekly bmp, lft, cbc, and esr while on these antibiotics will be monitored with infectious disease. Offloading measures were implemented, in particular with respect to the right heel ulceration, which appears to be pressure-related and further complicated with diabetes and lack of arterial perfusion. To offload by hanging heel over a pillow to float in the air. A future PRAFO boot will also be considered. Patient has been advised to optimize his nutrition, and his appetite is said to be good. Supplements have been recommended; a prescription for Gregorio was provided and he continues to take this twice daily. The purpose and proper use and expectations were discussed. A noninvasive lower extremity arterial study in which right monophasic artery was noted. The ABIs were not calculated due to noncompressibility and it looks like he has vascular disease. He does not have leukocytosis and his white blood cell count 8.7, sedimentation rate 47, albumin 2.3, and prealbumin 13.6. I have reviewed the x-ray CD including a right foot lateral and calcaneal axial. No acute fractures or dislocations or soft tissue emphysema or foreign body were identified. There is no osseous destruction or periosteal reaction suggestive of osteomyelitis adjacent to the ulcer site. He understands serial labs and x-rays will be performed to monitor for bone infection development. MRI or other advanced imaging will be considered pending his continued clinical progression. . Verbal consent was obtained for advanced wound care product, epi fix today. This was applied according to standard protocol. The advanced product was secured with Steri-Strips and wound veil. The indications, benefits, risks, anticipated healing course, and purpose was discussed. He tolerated this well. We will consider additional application next week to restimulate a timely healing process. I recommend hyperbaric oxygen therapy as a treatment consideration at this time. He does have a grade 3 ulcer and is at risk for limb loss and ongoing delayed healing. He understands this is an advanced healing technique that should be used in conjunction with traditional wound care treatment measures. The indications, procedure, needed medical clearance process, and anticipated healing time and treatment course were discussed in detail today. He is amenable to consider this. The concern at this time is transportation availability from his half-way facility [place] and the associated cost. His family in the wound care center nursing staff will look into preauthorization and travel opportunities. There has not been any development on this the past week and then will continue to seek this opportunity. Upon confirmation of his available in the near future, insurance approval will be confirmed, and then he will go for a hyperbaric oxygen therapy history and physical with consultation and proceed with the necessary tests and treatment set up if this goes well. I answered all his questions. To return to the wound care center in 1 week or sooner if there are any questions or concerns.
[2017-05-27 10:24] VITALS: BP 125/65; PULSE 77; RESP 16; TEMP 36.6
--- NOTE | 2017-05-27 11:14 | PCM.WC.PN ---
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 Current Visit: Yes Code(s): L97.513 - Non-pressure chronic ulcer of other part of right foot with necrosis of muscle (2) Physical deconditioning Status: Chronic Current Visit: Yes Code(s): R53.81 - Other malaise (3) PAD (peripheral artery disease) Status: Chronic Current Visit: Yes Code(s): I73.9 - Peripheral vascular disease, unspecified (4) Type 2 diabetes mellitus with diabetic polyneuropathy Status: Chronic Current Visit: Yes Code(s): E11.42 - Type 2 diabetes mellitus with diabetic polyneuropathy (5) Malnutrition Status: Suspected Current Visit: Yes Code(s): E46 - Unspecified protein-calorie malnutrition Type of Wound Date of Service: 05/27/17 Chief Complaint: . Right heel ulcer with resolving infection History of Wound: This is an 81-year-old male who is a resident of [facility] in [place], [place]. The patient is deconditioned, and nonambulatory. He denies fever, chill, nausea, vomiting, odor, or redness. He did attend his vascular surgery examination earlier this morning and acute intervention is not planned. He was previously treated for deep tissue infection that was growing Pseudomonas and MRSA. He continues on antibiotics per infectious disease. He is with his son today. He is open to considering hyperbaric oxygen therapy as an advanced treatment. His son reports he only has enough finances saved up to pay for 2 and half weeks of transportation and this does not seem like a viable option at this time. He is with his daughter today. He denies fever, chill, nausea, vomiting. He does have pain to the wound site and wears a pillow boot. He has some pain and is working with the house physician on control with tramadol and Tylenol. Progress of Wound: Improving quality - Physical Exam Vital Signs Temp Pulse Resp BP 98 F 77 16 125/65 H 05/27/17 10:24 05/27/17 10:24 05/27/17 10:24 05/27/17 10:24 General: Alert, Oriented x3, Cooperative Extremities: No cyanosis, Capillary Refill Less than 3 Seconds, No Calf Tenderness - Negative Gordo and Vera bilateral, Diminished Peripheral Pulses, Edema - Very minimal bilateral lower extremities Skin: Ulcer/ Wound - No purulence, no erythema, streaking, no odor, no infection. There is no streaking. The skin is atrophic and hairless. The wound bed is 100% granular with very interspersed fibrous tissue. There is no longer any eschar or liquefied tissue. There is no exposed bone. Improved granulation tissue is encouraging Wound Measurements and Assessment WC - Nurse 1 - General Ulcer Measurement Start: 05/20/17 11:16 Freq: Status: Active Protocol: Activity Type Activity Date Activity User E-Sign Co-Sign Detail Recorded Client Recorded Date Recorded By Document 05/27/17 10:24 DL [id number] 05/27/17 10:32 DL 05/27/17 10:24 Wound Center Nurse 1 [Ulcer Assessment] #2 R Heel -Current Size (cm) - Length 3.7 -Current Size (cm) - Width 4.8 -Current Size (cm) - Depth 0.1 -Total Square Cm 17.76 -Photo Taken No -Exudate Amt Medium (34-66%) -Exudate Type Serosanguineous -Wound Margin Distinct, Outline Attached -Granulation Amt Large (67-100%) -Granulation Quality Red -Necrosis Amt Small (1-33%) -Necrotic Tissue Type Adherent Slough -Structure Exposed N/A -Texture (Abi-wound Skin Appearance) Scarring -Moisture (Abi-wound Skin Appearance Maceration ) -Color (Abi-wound Skin Appearance) Erythema -Temperature (Abi-wound Skin No Abnormality Appearance) (Pt Warm) -Ulcer Cleansing Wound Cleanser -Foul Odor after Cleansing No -Anesthetic Used 4% Lidocaine Solution WC - Nurse 2 - General Ulcer CM Notes Start: 05/20/17 11:16 Freq: Status: Active Protocol: Activity Type Activity Date Activity User E-Sign Co-Sign Detail Recorded Client Recorded Date Recorded By Document 05/27/17 10:51 TM [id number] 05/27/17 10:53 TM 05/27/17 10:51 Wound Center Nurse 2 [Procedure/Treatment] -Time 10:51 -Correct Patient Yes -Correct Side, Site, Position Yes -Correct Procedure Yes -Procedure Performed Yes -Type of Procedure Debridement -Clinical Debridement Subcutaneous -Post Debridement Size (cm) - Length 3.8 -Post Debridement Size (cm) - Width 4.9 -Post Debridement Size (cm) - Depth 0.1 -Total Square Cm 18.62 -Wound/Ulcer Outcome Not Healed -Ulcer Cleansing Rinsed/ Irrigated with Saline -Foul Odor after Cleansing No -Bioengineered Tissue No -Topical Lidocaine (%) 5 -Bleeding Controlled with Pressure -Treatment Response Procedure Tolerated Well [See Physician Procedure note for Specifics] Pain Scale: 0-10 Numeric [Pain] -Is Patient Pain Free? Yes Musculoskeletal: No Tenderness to Palpation of Joints or Extremities, Muscle Wasting, Tenderness - Minimal wound manipulation tenderness Neurological: Sensory exam intact to light touch and pain Psych/Mental Status: Normal Affect, Appropriate Debridement Note Post-Debridement Measurements/Treatment WC - Nurse 2 - General Ulcer CM Notes Start: 05/20/17 11:16 Freq: Status: Active Protocol: Activity Type Activity Date Activity User E-Sign Co-Sign Detail Recorded Client Recorded Date Recorded By Document 05/20/17 11:43 [id number] 05/20/17 11:54 TM Document 05/27/17 10:51 [id number] 05/27/17 10:53 TM 05/20/17 05/27/17 11:43 10:51 Wound Center Nurse 2 #2 R Heel -Time 11:43 10:51 -Correct Patient Yes Yes -Correct Side, Site, Position Yes Yes -Correct Procedure Yes Yes -Procedure Performed Yes Yes -Type of Procedure Debridement Debridement -Clinical Debridement Subcutaneous Subcutaneous -Post Debridement Size (cm) - Length 3.4 3.8 -Post Debridement Size (cm) - Width 5.1 4.9 -Post Debridement Size (cm) - Depth 0.2 0.1 -Total Square Cm 17.34 18.62 -Wound/Ulcer Outcome Not Healed Not Healed -Ulcer Cleansing Rinsed/ Rinsed/ Irrigated with Irrigated with Saline Saline -Foul Odor after Cleansing No No -Bioengineered Tissue Yes No -Type of bioengineered Tissue EPIFIX -Expiration Date 02/16/22 -Product Lot Number [id number] -Percent Used 100 -Saline Lot Number [id number] -Topical Lidocaine (%) 4 5 -Bleeding Controlled with Pressure Pressure -Treatment Response Procedure Procedure Tolerated Well Tolerated Well Pain Scale: 0-10 Numeric Is Patient Pain Free? 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 Diabetes with peripheral neuropathy. Peripheral vascular disease. Gait impairment. Malnutrition suspected. Other comorbidities. On anticoagulation chronic use Plan: I reviewed and discussed the case with the patient today. His diagnostic data was reviewed. Infectious disease is on consultation and recommendations are greatly appreciated. To follow up as advised. He was educated about this and his son demonstrates understanding. To continue as advised with antibiotics. His cultures demonstrated MRSA, PsA, and anaerobes. The plan is to do 6 week course of oral doxy, cipro, and flagyl to cover recent growth. The stop date is 05/27/17. Weekly bmp, lft, cbc, and esr while on these antibiotics will be monitored with infectious disease. Offloading measures were implemented, in particular with respect to the right heel ulceration, which appears to be pressure-related and further complicated with diabetes and lack of arterial perfusion. To offload by hanging heel over a pillow to float in the air. This is reviewed again today with the daughter who will follow up on this at the skilled facility. A future PRAFO boot will also be considered. Patient has been advised to optimize his nutrition, and his appetite is said to be good. Supplements have been recommended; a prescription for Gregorio was provided and he continues to take this twice daily. The purpose and proper use and expectations were discussed. A noninvasive lower extremity arterial study in which right monophasic artery was noted. The ABIs were not calculated due to noncompressibility and it looks like he has vascular disease. He saw Dr. Vincent this morning who recommends monitoring the situation. Full office notes and recommendations will be requested. He does not have leukocytosis and his white blood cell count 8.7, sedimentation rate 47, albumin 2.3, and prealbumin 13.6. I have reviewed the x-ray CD including a right foot lateral and calcaneal axial. No acute fractures or dislocations or soft tissue emphysema or foreign body were identified. There is no osseous destruction or periosteal reaction suggestive of osteomyelitis adjacent to the ulcer site. He understands serial labs and x-rays will be performed to monitor for bone infection development. MRI or other advanced imaging will be considered pending his continued clinical progression. . Verbal consent was obtained for advanced wound care product, epi fix today. Ev and gauze dressing was applied today. To change daily. Additional advanced wound care product, epi fix her cord to her and is highly encouraged. His family is tracking into the co-pay cost and feasibility. The indications benefits and risks were reviewed again today. I recommend hyperbaric oxygen therapy as a treatment consideration at this time. He does have a grade 3 ulcer and is at risk for limb loss and ongoing delayed healing. He understands this is an advanced healing technique that should be used in conjunction with traditional wound care treatment measures. The indications, procedure, needed medical clearance process, and anticipated healing time and treatment course were discussed in detail today. He is amenable to consider this. The concern at this time is transportation availability from his group home facility [place] and the associated cost. His family in the wound care center nursing staff will look into preauthorization and travel opportunities. Upon confirmation of his available in the near future, insurance approval will be confirmed, and then he will go for a hyperbaric oxygen therapy history and physical with consultation and proceed with the necessary tests and treatment set up if this goes well. I answered all his questions. To return to the wound care center in 1 week or sooner if there are any questions or concerns.
--- NOTE | 2017-05-27 11:24 | PN.PCM_ITS ---
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 Current Visit: Yes Code(s): L97.513 - Non-pressure chronic ulcer of other part of right foot with necrosis of muscle (2) Physical deconditioning Status: Chronic Current Visit: Yes Code(s): R53.81 - Other malaise (3) PAD (peripheral artery disease) Status: Chronic Current Visit: Yes Code(s): I73.9 - Peripheral vascular disease, unspecified (4) Type 2 diabetes mellitus with diabetic polyneuropathy Status: Chronic Current Visit: Yes Code(s): E11.42 - Type 2 diabetes mellitus with diabetic polyneuropathy (5) Malnutrition Status: Suspected Current Visit: Yes Code(s): E46 - Unspecified protein- calorie malnutrition Type of Wound Date of Service: 05/27/17 Chief Complaint: . Right heel ulcer with resolving infection History of Wound: This is an 81-year-old male who is a resident of [facility] in [place], [place]. The patient is deconditioned, and nonambulatory. He denies fever, chill, nausea, vomiting, odor, or redness. He did attend his vascular surgery examination earlier this morning and acute intervention is not planned. He was previously treated for deep tissue infection that was growing Pseudomonas and MRSA. He continues on antibiotics per infectious disease. He is with his son today. He is open to considering hyperbaric oxygen therapy as an advanced treatment. His son reports he only has enough finances saved up to pay for 2 and half weeks of transportation and this does not seem like a viable option at this time. He is with his daughter today. He denies fever, chill, nausea, vomiting. He does have pain to the wound site and wears a pillow boot. He has some pain and is working with the house physician on control with tramadol and Tylenol. Progress of Wound: Improving quality - Physical Exam Vital Signs Temp Pulse Resp BP 98 F 77 16 125/65 H 05/27/17 10:24 05/27/17 10:24 05/27/17 10:24 05/27/17 10:24 General: Alert, Oriented x3, Cooperative Extremities: No cyanosis, Capillary Refill Less than 3 Seconds, No Calf Tenderness - Negative Gordo and Vera bilateral, Diminished Peripheral Pulses, Edema - Very minimal bilateral lower extremities Skin: Ulcer/ Wound - No purulence, no erythema, streaking, no odor, no infection. There is no streaking. The skin is atrophic and hairless. The wound bed is 100% granular with very interspersed fibrous tissue. There is no longer any eschar or liquefied tissue. There is no exposed bone. Improved granulation tissue is encouraging Wound Measurements and Assessment WC - Nurse 1 - General Ulcer Measurement Start: 05/20/17 11:16 Freq: Status: Active Protocol: Activity Type Activity Date Activity User E-Sign Co-Sign Detail Recorded Client Recorded Date Recorded By Document 05/27/17 10:24 DL [id number] 05/27/17 10:32 DL 05/27/17 10:24 Wound Center Nurse 1 [Ulcer Assessment] #2 R Heel -Current Size (cm) - Length 3.7 -Current Size (cm) - Width 4.8 -Current Size (cm) - Depth 0.1 -Total Square Cm 17.76 -Photo Taken No -Exudate Amt Medium (34-66%) -Exudate Type Serosanguineous -Wound Margin Distinct, Outline Attached -Granulation Amt Large (67-100%) -Granulation Quality Red -Necrosis Amt Small (1-33%) -Necrotic Tissue Type Adherent Slough -Structure Exposed N/A -Texture (Abi-wound Skin Appearance) Scarring -Moisture (Abi-wound Skin Appearance Maceration ) -Color (Abi-wound Skin Appearance) Erythema -Temperature (Abi-wound Skin No Abnormality Appearance) (Pt Warm) -Ulcer Cleansing Wound Cleanser -Foul Odor after Cleansing No -Anesthetic Used 4% Lidocaine Solution WC - Nurse 2 - General Ulcer CM Notes Start: 05/20/17 11:16 Freq: Status: Active Protocol: Activity Type Activity Date Activity User E-Sign Co-Sign Detail Recorded Client Recorded Date Recorded By Document 05/27/17 10:51 TM [id number] 05/27/17 10:53 TM 05/27/17 10:51 Wound Center Nurse 2 [Procedure/Treatment] -Time 10:51 -Correct Patient Yes -Correct Side, Site, Position Yes -Correct Procedure Yes -Procedure Performed Yes -Type of Procedure Debridement -Clinical Debridement Subcutaneous -Post Debridement Size (cm) - Length 3.8 -Post Debridement Size (cm) - Width 4.9 -Post Debridement Size (cm) - Depth 0.1 -Total Square Cm 18.62 -Wound/Ulcer Outcome Not Healed -Ulcer Cleansing Rinsed/ Irrigated with Saline -Foul Odor after Cleansing No -Bioengineered Tissue No -Topical Lidocaine (%) 5 -Bleeding Controlled with Pressure -Treatment Response Procedure Tolerated Well [See Physician Procedure note for Specifics] Pain Scale: 0-10 Numeric [Pain] -Is Patient Pain Free? Yes Musculoskeletal: No Tenderness to Palpation of Joints or Extremities, Muscle Wasting, Tenderness - Minimal wound manipulation tenderness Neurological: Sensory exam intact to light touch and pain Psych/Mental Status: Normal Affect, Appropriate Debridement Note Post-Debridement Measurements/Treatment WC - Nurse 2 - General Ulcer CM Notes Start: 05/20/17 11:16 Freq: Status: Active Protocol: Activity Type Activity Date Activity User E-Sign Co-Sign Detail Recorded Client Recorded Date Recorded By Document 05/20/17 11:43 [id number] 05/20/17 11:54 TM Document 05/27/17 10:51 [id number] 05/27/17 10:53 TM 05/20/17 05/27/17 11:43 10:51 Wound Center Nurse 2 #2 R Heel -Time 11:43 10:51 -Correct Patient Yes Yes -Correct Side, Site, Position Yes Yes -Correct Procedure Yes Yes -Procedure Performed Yes Yes -Type of Procedure Debridement Debridement -Clinical Debridement Subcutaneous Subcutaneous -Post Debridement Size (cm) - Length 3.4 3.8 -Post Debridement Size (cm) - Width 5.1 4.9 -Post Debridement Size (cm) - Depth 0.2 0.1 -Total Square Cm 17.34 18.62 -Wound/Ulcer Outcome Not Healed Not Healed -Ulcer Cleansing Rinsed/ Rinsed/ Irrigated with Irrigated with Saline Saline -Foul Odor after Cleansing No No -Bioengineered Tissue Yes No -Type of bioengineered Tissue EPIFIX -Expiration Date 02/16/22 -Product Lot Number [id number] -Percent Used 100 -Saline Lot Number [id number] -Topical Lidocaine (%) 4 5 -Bleeding Controlled with Pressure Pressure -Treatment Response Procedure Procedure Tolerated Well Tolerated Well Pain Scale: 0-10 Numeric Is Patient Pain Free? 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 Diabetes with peripheral neuropathy. Peripheral vascular disease. Gait impairment. Malnutrition suspected. Other comorbidities. On anticoagulation chronic use Plan: I reviewed and discussed the case with the patient today. His diagnostic data was reviewed. Infectious disease is on consultation and recommendations are greatly appreciated. To follow up as advised. He was educated about this and his son demonstrates understanding. To continue as advised with antibiotics. His cultures demonstrated MRSA, PsA, and anaerobes. The plan is to do 6 week course of oral doxy, cipro, and flagyl to cover recent growth. The stop date is 05/27/17. Weekly bmp, lft, cbc, and esr while on these antibiotics will be monitored with infectious disease. Offloading measures were implemented, in particular with respect to the right heel ulceration, which appears to be pressure-related and further complicated with diabetes and lack of arterial perfusion. To offload by hanging heel over a pillow to float in the air. This is reviewed again today with the daughter who will follow up on this at the skilled facility. A future PRAFO boot will also be considered. Patient has been advised to optimize his nutrition, and his appetite is said to be good. Supplements have been recommended; a prescription for Gregorio was provided and he continues to take this twice daily. The purpose and proper use and expectations were discussed. A noninvasive lower extremity arterial study in which right monophasic artery was noted. The ABIs were not calculated due to noncompressibility and it looks like he has vascular disease. He saw Dr. Vincent this morning who recommends monitoring the situation. Full office notes and recommendations will be requested. He does not have leukocytosis and his white blood cell count 8.7, sedimentation rate 47, albumin 2.3, and prealbumin 13.6. I have reviewed the x-ray CD including a right foot lateral and calcaneal axial. No acute fractures or dislocations or soft tissue emphysema or foreign body were identified. There is no osseous destruction or periosteal reaction suggestive of osteomyelitis adjacent to the ulcer site. He understands serial labs and x-rays will be performed to monitor for bone infection development. MRI or other advanced imaging will be considered pending his continued clinical progression. . Verbal consent was obtained for advanced wound care product, epi fix today. Ev and gauze dressing was applied today. To change daily. Additional advanced wound care product, epi fix her cord to her and is highly encouraged. His family is tracking into the co-pay cost and feasibility. The indications benefits and risks were reviewed again today. I recommend hyperbaric oxygen therapy as a treatment consideration at this time. He does have a grade 3 ulcer and is at risk for limb loss and ongoing delayed healing. He understands this is an advanced healing technique that should be used in conjunction with traditional wound care treatment measures. The indications, procedure, needed medical clearance process, and anticipated healing time and treatment course were discussed in detail today. He is amenable to consider this. The concern at this time is transportation availability from his [facility] facility [facility] and the associated cost. His family in the wound care center nursing staff will look into preauthorization and travel opportunities. Upon confirmation of his available in the near future, insurance approval will be confirmed, and then he will go for a hyperbaric oxygen therapy history and physical with consultation and proceed with the necessary tests and treatment set up if this goes well. I answered all his questions. To return to the wound care center in 1 week or sooner if there are any questions or concerns.
[2017-06-03 10:24] VITALS: BP 142/71; PULSE 76; RESP 18; TEMP 36.3
--- NOTE | 2017-06-03 12:51 | PN.PCM_ITS ---
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 Current Visit: Yes Code(s): L97.513 - Non-pressure chronic ulcer of other part of right foot with necrosis of muscle (2) Physical deconditioning Status: Chronic Current Visit: Yes Code(s): R53.81 - Other malaise (3) PAD (peripheral artery disease) Status: Chronic Current Visit: Yes Code(s): I73.9 - Peripheral vascular disease, unspecified (4) Type 2 diabetes mellitus with diabetic polyneuropathy Status: Chronic Current Visit: Yes Code(s): E11.42 - Type 2 diabetes mellitus with diabetic polyneuropathy (5) Malnutrition Status: Suspected Current Visit: Yes Code(s): E46 - Unspecified protein- calorie malnutrition Type of Wound Date of Service: 06/03/17 Chief Complaint: . Right heel ulcer with resolving infection History of Wound: This is an 81-year-old male who is a resident of [facility] in [place], [place]. The patient is deconditioned, and nonambulatory. He denies fever, chill, nausea, vomiting, odor, or redness. He was previously treated for deep tissue infection that was growing Pseudomonas and MRSA. He continues on antibiotics per infectious disease. He is with his son today. He does have pain to the wound site and wears a pillow boot only. Progress of Wound: Improving quality to enter wound portion and new pressure changes and deterioration to the posterior aspect - Physical Exam Vital Signs Temp Pulse Resp BP 97.3 F L 76 18 142/71 H 06/03/17 10:24 06/03/17 10:24 06/03/17 10:24 06/03/17 10:24 General: Alert, Oriented x3, Cooperative Extremities: No cyanosis, Capillary Refill Less than 3 Seconds, No Calf Tenderness - Negative Gordo and Vera sign right, Diminished Peripheral Pulses, Edema - Minimal right lower extremity Skin: Ulcer/ Wound - No purulence, no erythema, streaking, no odor, no bonnie necrosis right lower extremity. There is non-blanchable erythema with early signs of ecchymosis to the posterior border of the wound and to the posterior 20 % of the wound consistent with increased pressure. Caution will be taking with dressing applications. The remaining 80% of the heel ulcer site has improved beefy red granulation tissue and there is no longer any exposed fascia. There is no visualization or probe to bone noted. His peripheral skin is atrophic and without hair. There is no eschar in the wound bed. Wound Measurements and Assessment - Nurse 1 - General Ulcer Measurement Start: 05/20/17 11:16 Freq: Status: Active Protocol: Activity Type Activity Date Activity User E-Sign Co-Sign Detail Recorded Client Recorded Date Recorded By Document 06/03/17 10:24 [id number] 06/03/17 10:27 06/03/17 10:24 Wound Center Nurse 1 [Ulcer Assessment] #2 R Heel -Combined with other wound No -Current Size (cm) - Length 4.2 -Current Size (cm) - Width 3.3 -Current Size (cm) - Depth 0.2 -Total Square Cm 13.86 -Photo Taken No -Epithelialization None Present -Tunneling No -Undermining/Tunneling No -Circular Undermining No -Exudate Amt Medium (34-66%) -Exudate Type Serosanguineous -Wound Margin Flat & Intact -Granulation Amt Large (67-100%) -Granulation Quality Red -Slough/Fibrin Yes -Necrosis Amt Medium (34-66%) -Necrotic Tissue Type Adherent Slough -Structure Exposed N/A -Texture (Abi-wound Skin Appearance) Assessed Localized Edema -Moisture (Abi-wound Skin Appearance Assessed ) Dry/Scaly -Color (Abi-wound Skin Appearance) Assessed Ecchymosis -Temperature (Abi-wound Skin No Abnormality Appearance) (Pt Warm) -Tenderness on Palpation (Abi-wound No Skin Appearance) -Ulcer Cleansing Rinsed/ Irrigated with Saline -Foul Odor after Cleansing No -Anesthetic Used 4% Lidocaine Solution [Edema Assessment] -Lower Limb Edema Present Yes -Right Calf (cm) 28 -Right Ankle (cm) 18.9 - Nurse 2 - General Ulcer CM Notes Start: 05/20/17 11:16 Freq: Status: Active Protocol: Activity Type Activity Date Activity User E-Sign Co-Sign Detail Recorded Client Recorded Date Recorded By Document 06/03/17 11:08 [id number] 06/03/17 11:09 06/03/17 11:08 Wound Center Nurse 2 [Procedure/Treatment] #2 R Heel -Time 11:08 -Correct Patient Yes -Correct Side, Site, Position Yes -Correct Procedure Yes -Procedure Performed Yes -Type of Procedure Debridement -Clinical Debridement Subcutaneous -Post Debridement Size (cm) - Length 4.5 -Post Debridement Size (cm) - Width 3.5 -Post Debridement Size (cm) - Depth 0.2 -Total Square Cm 15.75 -Wound/Ulcer Outcome Not Healed -Ulcer Cleansing Rinsed/ Irrigated with Saline -Foul Odor after Cleansing No -Bioengineered Tissue No -Bleeding Controlled with Pressure -Treatment Response Procedure Tolerated Well [See Physician Procedure note for Specifics] Pain Scale: 0-10 Numeric [Pain] -Is Patient Pain Free? Yes Musculoskeletal: No Tenderness to Palpation of Joints or Extremities, Muscle Wasting, Tenderness - Wound manipulation posterior aspect is tender Neurological: Sensory exam intact to light touch and pain Psych/Mental Status: Normal Affect, Appropriate Debridement Note Post-Debridement Measurements/Treatment WC - Nurse 2 - General Ulcer CM Notes Start: 05/20/17 11:16 Freq: Status: Active Protocol: Activity Type Activity Date Activity User E-Sign Co-Sign Detail Recorded Client Recorded Date Recorded By Document 05/20/17 11:43 [id number] 05/20/17 11:54 Document 05/27/17 10:51 [email or web address] 05/27/17 10:53 Document 06/03/17 11:08 [id number] 06/03/17 11:09 05/20/17 05/27/17 06/03/17 11:43 10:51 11:08 Wound Center Nurse 2 #2 R Heel -Time 11:43 10:51 11:08 -Correct Patient Yes Yes Yes -Correct Side, Site, Position Yes Yes Yes -Correct Procedure Yes Yes Yes -Procedure Performed Yes Yes Yes -Type of Procedure Debridement Debridement Debridement -Clinical Debridement Subcutaneous Subcutaneous Subcutaneous -Post Debridement Size (cm) - Length 3.4 3.8 4.5 -Post Debridement Size (cm) - Width 5.1 4.9 3.5 -Post Debridement Size (cm) - Depth 0.2 0.1 0.2 -Total Square Cm 17.34 18.62 15.75 -Wound/Ulcer Outcome Not Healed Not Healed Not Healed -Ulcer Cleansing Rinsed/ Rinsed/ Rinsed/ Irrigated with Irrigated with Irrigated with Saline Saline Saline -Foul Odor after Cleansing No No No -Bioengineered Tissue Yes No No -Type of bioengineered Tissue EPIFIX -Expiration Date 02/16/22 -Product Lot Number [id number] -Percent Used 100 -Saline Lot Number [id number] -Topical Lidocaine (%) 4 5 -Bleeding Controlled with Pressure Pressure Pressure -Treatment Response Procedure Procedure Procedure Tolerated Well Tolerated Well Tolerated Well Pain Scale: 0-10 Numeric Is Patient Pain Free? 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 Diabetes with peripheral neuropathy. Peripheral vascular disease. Gait impairment. Malnutrition suspected. Other comorbidities. On anticoagulation chronic use Plan: I reviewed and discussed the case with the patient today. His diagnostic data was reviewed. Infectious disease is on consultation and recommendations are greatly appreciated. He was responding well to this treatment plan. To continue as advised with antibiotics and he has completed this course this past May 27. His previous cultures demonstrated MRSA, PsA, and anaerobes. Offloading measures were implemented, in particular with respect to the right heel ulceration, which appears to be pressure-related and further complicated with diabetes and lack of arterial perfusion. To offload by hanging heel over a pillow to float in the air. New pressure changes are noted and I ordered him donut pillow and he was advised on strict use. I also recommend avoiding tight application of his dressing because he has some pre-pressure ulcer changes to his anterior palencia . It is noted this is not open or infected today. Patient has been advised to optimize his nutrition, and his appetite is said to be good. Supplements have been recommended; a prescription for Gregorio was provided and he continues to take this twice daily. The purpose and proper use and expectations were discussed. A noninvasive lower extremity arterial study in which right monophasic artery was noted. The ABIs were not calculated due to noncompressibility and it looks like he has vascular disease. He saw Dr. Vincent this morning who recommends monitoring the situation. Full office notes and recommendations will be requested. He does not have leukocytosis and his white blood cell count 8.7, sedimentation rate 47, albumin 2.3, and prealbumin 13.6. I have reviewed the x-ray CD including a right foot lateral and calcaneal axial. No acute fractures or dislocations or soft tissue emphysema or foreign body were identified. There is no osseous destruction or periosteal reaction suggestive of osteomyelitis adjacent to the ulcer site. He understands serial labs and x-rays will be performed to monitor for bone infection development. MRI or other advanced imaging will be considered pending his continued clinical progression. He defers advanced wound care product, epi fix and further hyperbaric oxygen therapy progression at this time due to cost. This is previously reviewed in great depth with his. Ev and gauze dressing was applied today. To change daily. I answered all his questions. To return to the wound care center in 1 week or sooner if there are any questions or concerns.
[2017-06-10 09:15] VITALS: BP 125/61; PULSE 58; RESP 18; TEMP 36.4
--- NOTE | 2017-06-10 09:54 | PCM.WC.PN ---
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 Current Visit: Yes Code(s): L97.513 - Non-pressure chronic ulcer of other part of right foot with necrosis of muscle (2) Physical deconditioning Status: Chronic Current Visit: Yes Code(s): R53.81 - Other malaise (3) PAD (peripheral artery disease) Status: Chronic Current Visit: Yes Code(s): I73.9 - Peripheral vascular disease, unspecified (4) Type 2 diabetes mellitus with diabetic polyneuropathy Status: Chronic Current Visit: Yes Code(s): E11.42 - Type 2 diabetes mellitus with diabetic polyneuropathy (5) Malnutrition Status: Suspected Current Visit: Yes Code(s): E46 - Unspecified protein-calorie malnutrition Type of Wound Date of Service: 06/10/17 Chief Complaint: . Right heel ulcer with resolving infection History of Wound: This is an 81-year-old male who is a resident of [facility] in [place], [place]. The patient is deconditioned, and nonambulatory. He denies fever, chill, nausea, vomiting, odor, or redness. He was previously treated for deep tissue infection that was growing Pseudomonas and MRSA. He completed his antibiotics per infectious disease. He is with his daughter today. He does have pain to the wound site and wears a pillow boot only. His daughter cannot confirm if the donut pillow offloading device has been placed in things stable and with hanging his foot over some pillows while in bed which is a concern because his leg slipped out of place. Progress of Wound: Improving - Physical Exam Vital Signs Temp Pulse Resp BP 97.5 F L 58 L 18 125/61 H 06/10/17 09:15 06/10/17 09:15 06/10/17 09:15 06/10/17 09:15 General: Alert, Oriented x3, Cooperative Extremities: No cyanosis, Capillary Refill Less than 3 Seconds, No Calf Tenderness - Negative Gordo and Vera signs right, Diminished Peripheral Pulses, Edema - Controlled right Skin: Ulcer/ Wound - No purulence, no erythema, streaking, no odor, no acute infection. The wound bed is granular and there is simple peripheral epithelialization is noted. The posterior heel ulcer site is still demonstrating delays in healing and is fibrous and devitalized. His peripheral skin is very atrophic and hairless Wound Measurements and Assessment WC - Nurse 1 - General Ulcer Measurement Start: 05/20/17 11:16 Freq: Status: Active Protocol: Activity Type Activity Date Activity User E-Sign Co-Sign Detail Recorded Client Recorded Date Recorded By Document 06/10/17 09:15 RB [id number] 06/10/17 09:31 RB 06/10/17 09:15 Wound Center Nurse 1 [Ulcer Assessment] #2 R Heel -Combined with other wound No -Current Size (cm) - Length 3.7 -Current Size (cm) - Width 3.4 -Current Size (cm) - Depth 0.2 -Total Square Cm 12.58 -Photo Taken No -Tunneling No -Undermining/Tunneling No -Circular Undermining No -Classification - Thickness Full Thickness without Exposed Support Structure -Exudate Amt Small (1-33%) -Exudate Type Serosanguineous -Wound Margin Distinct, Outline Attached -Granulation Amt Medium (34-66%) -Granulation Quality [place] -Slough/Fibrin Yes -Necrosis Amt Small (1-33%) -Necrotic Tissue Type Necrosis of Bone -Structure Exposed N/A -Texture (Abi-wound Skin Appearance) Assessed Callus -Moisture (Abi-wound Skin Appearance Assessed ) -Color (Abi-wound Skin Appearance) Assessed -Temperature (Abi-wound Skin No Abnormality Appearance) (Pt Warm) -Tenderness on Palpation (Abi-wound No Skin Appearance) -Ulcer Cleansing Rinsed/ Irrigated with Saline -Foul Odor after Cleansing No -Anesthetic Used 5% Lidocaine Gel Musculoskeletal: No Tenderness to Palpation of Joints or Extremities, Muscle Wasting, Tenderness - Wound manipulation pain noted Neurological: Sensory exam intact to light touch and pain Psych/Mental Status: Normal Affect, Appropriate Debridement Note Post-Debridement Measurements/Treatment WC - Nurse 2 - General Ulcer CM Notes Start: 05/20/17 11:16 Freq: Status: Active Protocol: Activity Type Activity Date Activity User E-Sign Co-Sign Detail Recorded Client Recorded Date Recorded By Document 05/20/17 11:43 [id number] 05/20/17 11:54 TM Document 05/27/17 10:51 TM [id number] 05/27/17 10:53 TM Document 06/03/17 11:08 [id number] 06/03/17 11:09 05/20/17 05/27/17 06/03/17 11:43 10:51 11:08 Wound Center Nurse 2 #2 R Heel -Time 11:43 10:51 11:08 -Correct Patient Yes Yes Yes -Correct Side, Site, Position Yes Yes Yes -Correct Procedure Yes Yes Yes -Procedure Performed Yes Yes Yes -Type of Procedure Debridement Debridement Debridement -Clinical Debridement Subcutaneous Subcutaneous Subcutaneous -Post Debridement Size (cm) - Length 3.4 3.8 4.5 -Post Debridement Size (cm) - Width 5.1 4.9 3.5 -Post Debridement Size (cm) - Depth 0.2 0.1 0.2 -Total Square Cm 17.34 18.62 15.75 -Wound/Ulcer Outcome Not Healed Not Healed Not Healed -Ulcer Cleansing Rinsed/ Rinsed/ Rinsed/ Irrigated with Irrigated with Irrigated with Saline Saline Saline -Foul Odor after Cleansing No No No -Bioengineered Tissue Yes No No -Type of bioengineered Tissue EPIFIX -Expiration Date 02/16/22 -Product Lot Number [id number] -Percent Used 100 -Saline Lot Number [id number] -Topical Lidocaine (%) 4 5 -Bleeding Controlled with Pressure Pressure Pressure -Treatment Response Procedure Procedure Procedure Tolerated Well Tolerated Well Tolerated Well Pain Scale: 0-10 Numeric Is Patient Pain Free? 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 Diabetes with peripheral neuropathy. Peripheral vascular disease. Gait impairment. Malnutrition suspected. Other comorbidities. On anticoagulation chronic use Plan: I reviewed and discussed the case with the patient today. His diagnostic data was reviewed. Infectious disease is on consultation and recommendations are greatly appreciated. He was responding well to this treatment plan. To continue as advised with antibiotics and he has completed this course this past Alis 11. His previous cultures demonstrated MRSA, PsA, and anaerobes. A new wound culture today was taken to assess for continued MRSA. If this is negative his contact precautions will be lifted. His labs are reviewed including albumin 2.4 this was obtained from 06/04/2017. Offloading measures were implemented, in particular with respect to the right heel ulceration, which appears to be pressure-related and further complicated with diabetes and lack of arterial perfusion. To offload by hanging heel over a pillow to float in the air. Another order for a donut offloading pillow was provided and his daughter will try to obtain this from outpatient medical supply store today. I also recommend avoiding tight application of his dressing because he has some pre-pressure ulcer changes to his anterior palencia at his last visit which has resolved today. It is noted this is not open or infected today. Patient has been advised to optimize his nutrition, and his appetite is said to be good. Supplements have been recommended; a prescription for Gregorio was provided and he continues to take this twice daily. The purpose and proper use and expectations were discussed. A noninvasive lower extremity arterial study in which right monophasic artery was noted. The ABIs were not calculated due to noncompressibility and it looks like he has vascular disease. He saw Dr. Vincent this morning who recommends monitoring the situation. Full office notes and recommendations will be requested. He does not have leukocytosis and his white blood cell count 8.7, sedimentation rate 47, albumin 2.3, and prealbumin 13.6. I have reviewed the x-ray CD including a right foot lateral and calcaneal axial. No acute fractures or dislocations or soft tissue emphysema or foreign body were identified. There is no osseous destruction or periosteal reaction suggestive of osteomyelitis adjacent to the ulcer site. He understands serial labs and x-rays will be performed to monitor for bone infection development. MRI or other advanced imaging will be considered pending his continued clinical progression. He defers advanced wound care product, epi fix and further hyperbaric oxygen therapy progression at this time due to cost. This is previously reviewed in great depth with his. His daughter asked about regional hyperbaric oxygen because the [facility] facility is looking into this treatment option for body chamber. Ev and gauze dressing was applied today. To change daily. I answered all his questions. To return to the wound care center in 1 week or sooner if there are any questions or concerns.
--- NOTE | 2017-06-10 10:01 | PN.PCM_ITS ---
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 Current Visit: Yes Code(s): L97.513 - Non-pressure chronic ulcer of other part of right foot with necrosis of muscle (2) Physical deconditioning Status: Chronic Current Visit: Yes Code(s): R53.81 - Other malaise (3) PAD (peripheral artery disease) Status: Chronic Current Visit: Yes Code(s): I73.9 - Peripheral vascular disease, unspecified (4) Type 2 diabetes mellitus with diabetic polyneuropathy Status: Chronic Current Visit: Yes Code(s): E11.42 - Type 2 diabetes mellitus with diabetic polyneuropathy (5) Malnutrition Status: Suspected Current Visit: Yes Code(s): E46 - Unspecified protein- calorie malnutrition Type of Wound Date of Service: 06/10/17 Chief Complaint: . Right heel ulcer with resolving infection History of Wound: This is an 81-year-old male who is a resident of [facility] in [place], [place]. The patient is deconditioned, and nonambulatory. He denies fever, chill, nausea, vomiting, odor, or redness. He was previously treated for deep tissue infection that was growing Pseudomonas and MRSA. He completed his antibiotics per infectious disease. He is with his daughter today. He does have pain to the wound site and wears a pillow boot only. His daughter cannot confirm if the donut pillow offloading device has been placed in things stable and with hanging his foot over some pillows while in bed which is a concern because his leg slipped out of place. Progress of Wound: Improving - Physical Exam Vital Signs Temp Pulse Resp BP 97.5 F L 58 L 18 125/61 H 06/10/17 09:15 06/10/17 09:15 06/10/17 09:15 06/10/17 09:15 General: Alert, Oriented x3, Cooperative Extremities: No cyanosis, Capillary Refill Less than 3 Seconds, No Calf Tenderness - Negative Gordo and Vera signs right, Diminished Peripheral Pulses , Edema - Controlled right Skin: Ulcer/ Wound - No purulence, no erythema, streaking, no odor, no acute infection. The wound bed is granular and there is simple peripheral epithelialization is noted. The posterior heel ulcer site is still demonstrating delays in healing and is fibrous and devitalized. His peripheral skin is very atrophic and hairless Wound Measurements and Assessment WC - Nurse 1 - General Ulcer Measurement Start: 05/20/17 11:16 Freq: Status: Active Protocol: Activity Type Activity Date Activity User E-Sign Co-Sign Detail Recorded Client Recorded Date Recorded By Document 06/10/17 09:15 RB [id number] 06/10/17 09:31 RB 06/10/17 09:15 Wound Center Nurse 1 [Ulcer Assessment] #2 R Heel -Combined with other wound No -Current Size (cm) - Length 3.7 -Current Size (cm) - Width 3.4 -Current Size (cm) - Depth 0.2 -Total Square Cm 12.58 -Photo Taken No -Tunneling No -Undermining/Tunneling No -Circular Undermining No -Classification - Thickness Full Thickness without Exposed Support Structure -Exudate Amt Small (1-33%) -Exudate Type Serosanguineous -Wound Margin Distinct, Outline Attached -Granulation Amt Medium (34-66%) -Granulation Quality [place] -Slough/Fibrin Yes -Necrosis Amt Small (1-33%) -Necrotic Tissue Type Necrosis of Bone -Structure Exposed N/A -Texture (Abi-wound Skin Appearance) Assessed Callus -Moisture (Abi-wound Skin Appearance Assessed ) -Color (Abi-wound Skin Appearance) Assessed -Temperature (Abi-wound Skin No Abnormality Appearance) (Pt Warm) -Tenderness on Palpation (Abi-wound No Skin Appearance) -Ulcer Cleansing Rinsed/ Irrigated with Saline -Foul Odor after Cleansing No -Anesthetic Used 5% Lidocaine Gel Musculoskeletal: No Tenderness to Palpation of Joints or Extremities, Muscle Wasting, Tenderness - Wound manipulation pain noted Neurological: Sensory exam intact to light touch and pain Psych/Mental Status: Normal Affect, Appropriate Debridement Note Post-Debridement Measurements/Treatment WC - Nurse 2 - General Ulcer CM Notes Start: 05/20/17 11:16 Freq: Status: Active Protocol: Activity Type Activity Date Activity User E-Sign Co-Sign Detail Recorded Client Recorded Date Recorded By Document 05/20/17 11:43 [id number] 05/20/17 11:54 TM Document 05/27/17 10:51 [email or web address] [id number] 05/27/17 10:53 TM Document 06/03/17 11:08 [id number] 06/03/17 11:09 05/20/17 05/27/17 06/03/17 11:43 10:51 11:08 Wound Center Nurse 2 #2 R Heel -Time 11:43 10:51 11:08 -Correct Patient Yes Yes Yes -Correct Side, Site, Position Yes Yes Yes -Correct Procedure Yes Yes Yes -Procedure Performed Yes Yes Yes -Type of Procedure Debridement Debridement Debridement -Clinical Debridement Subcutaneous Subcutaneous Subcutaneous -Post Debridement Size (cm) - Length 3.4 3.8 4.5 -Post Debridement Size (cm) - Width 5.1 4.9 3.5 -Post Debridement Size (cm) - Depth 0.2 0.1 0.2 -Total Square Cm 17.34 18.62 15.75 -Wound/Ulcer Outcome Not Healed Not Healed Not Healed -Ulcer Cleansing Rinsed/ Rinsed/ Rinsed/ Irrigated with Irrigated with Irrigated with Saline Saline Saline -Foul Odor after Cleansing No No No -Bioengineered Tissue Yes No No -Type of bioengineered Tissue EPIFIX -Expiration Date 02/16/22 -Product Lot Number [id number] -Percent Used 100 -Saline Lot Number [id number] -Topical Lidocaine (%) 4 5 -Bleeding Controlled with Pressure Pressure Pressure -Treatment Response Procedure Procedure Procedure Tolerated Well Tolerated Well Tolerated Well Pain Scale: 0-10 Numeric Is Patient Pain Free? 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 Diabetes with peripheral neuropathy. Peripheral vascular disease. Gait impairment. Malnutrition suspected. Other comorbidities. On anticoagulation chronic use Plan: I reviewed and discussed the case with the patient today. His diagnostic data was reviewed. Infectious disease is on consultation and recommendations are greatly appreciated. He was responding well to this treatment plan. To continue as advised with antibiotics and he has completed this course this past Alis 11. His previous cultures demonstrated MRSA, PsA, and anaerobes. A new wound culture today was taken to assess for continued MRSA. If this is negative his contact precautions will be lifted. His labs are reviewed including albumin 2.4 this was obtained from 06/04/2017. Offloading measures were implemented, in particular with respect to the right heel ulceration, which appears to be pressure-related and further complicated with diabetes and lack of arterial perfusion. To offload by hanging heel over a pillow to float in the air. Another order for a donut offloading pillow was provided and his daughter will try to obtain this from outpatient medical supply store today. I also recommend avoiding tight application of his dressing because he has some pre-pressure ulcer changes to his anterior palencia at his last visit which has resolved today. It is noted this is not open or infected today. Patient has been advised to optimize his nutrition, and his appetite is said to be good. Supplements have been recommended; a prescription for Gregorio was provided and he continues to take this twice daily. The purpose and proper use and expectations were discussed. A noninvasive lower extremity arterial study in which right monophasic artery was noted. The ABIs were not calculated due to noncompressibility and it looks like he has vascular disease. He saw Dr. Vincent this morning who recommends monitoring the situation. Full office notes and recommendations will be requested. He does not have leukocytosis and his white blood cell count 8.7, sedimentation rate 47, albumin 2.3, and prealbumin 13.6. I have reviewed the x-ray CD including a right foot lateral and calcaneal axial. No acute fractures or dislocations or soft tissue emphysema or foreign body were identified. There is no osseous destruction or periosteal reaction suggestive of osteomyelitis adjacent to the ulcer site. He understands serial labs and x-rays will be performed to monitor for bone infection development. MRI or other advanced imaging will be considered pending his continued clinical progression. He defers advanced wound care product, epi fix and further hyperbaric oxygen therapy progression at this time due to cost. This is previously reviewed in great depth with his. His daughter asked about regional hyperbaric oxygen because the [facility] facility is looking into this treatment option for body chamber. Ev and gauze dressing was applied today. To change daily. I answered all his questions. To return to the wound care center in 1 week or sooner if there are any questions or concerns.
[2017-06-10 17:36] LABS: M R Staph aureus DNA By PCR Negative (Negative); Probe Check PASS; Specimen Processing Control PASS; Staph aureus DNA By PCR NEGATIVE (Negative)
== END 2017-06-15 23:59 ==
LOC: WC 09:00
PROVIDERS: Family Provider Family Medicine; PCP Family Medicine; Visit Provider Podiatrist
DX: E11.621 Type 2 diabetes mellitus with foot ulcer (principal); E11.42 Type 2 diabetes mellitus with diabetic polyneuropathy; E11.51 Type 2 diabetes mellitus with diabetic peripheral angiopathy without gangrene; L97.513 Non-pressure chronic ulcer of other part of right foot with necrosis of muscle; Z86.14 Personal history of Methicillin resistant Staphylococcus aureus infection; R60.0 Localized edema; L97.412 Non-pressure chronic ulcer of right heel and midfoot with fat layer exposed
CPT/HCPCS: 11042; 15275; 87070; 87075; 87077; 87186; 87205; 87640; Q4131

== ENCOUNTER 2017-07-15 15:00 | Outpatient (RCR) | payer MEDICARE, SELFPAY ==
[2017-06-16 00:46] VITALS: PULSE 58; RESP 18; TEMP 36.4
--- NOTE | 2017-06-17 08:50 | NURSING ---
This nurse spoke with [facility] Coles about getting update on this pt and where they stand with initiating clearance/starting HBO. Previously waiting on family to sort out transportation for the pt who resides in a facility. Dr. Castaneda did not want to start the clearance process until family was able to secure transport daily.
[2017-06-17 15:22] VITALS: BP 151/78; PULSE 72; RESP 16; TEMP 36.4
--- NOTE | 2017-06-17 17:34 | PCM.WC.PN ---
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 Current Visit: Yes Code(s): L97.513 - Non-pressure chronic ulcer of other part of right foot with necrosis of muscle (2) PAD (peripheral artery disease) Status: Chronic Current Visit: Yes Code(s): I73.9 - Peripheral vascular disease, unspecified (3) Ulcer of right lower extremity with fat layer exposed Status: Chronic Current Visit: Yes Code(s): L97.912 - Non-pressure chronic ulcer of unspecified part of right lower leg with fat layer exposed (4) Type 2 diabetes mellitus with diabetic polyneuropathy Status: Chronic Current Visit: Yes Code(s): E11.42 - Type 2 diabetes mellitus with diabetic polyneuropathy (5) Malnutrition Status: Suspected Current Visit: Yes Code(s): E46 - Unspecified protein-calorie malnutrition Type of Wound Date of Service: 06/18/17 Chief Complaint: . Right heel ulcer with resolving infection History of Wound: This is an 81-year-old male who is a resident of [facility] in [place], [place]. The patient is deconditioned, and nonambulatory. He denies fever, chill, nausea, vomiting, odor, or redness. He was previously treated for deep tissue infection that was growing Pseudomonas and MRSA. He completed his antibiotics per infectious disease. He is with his transportation supervisor today. He does have pain to the wound site and wears a pillow boot only. Progress of Wound: Improving - Physical Exam Vital Signs Temp Pulse Resp BP 97.5 F L 72 16 151/78 H 06/17/17 15:22 06/17/17 15:22 06/17/17 15:22 06/17/17 15:22 General: Alert, Oriented x3, Cooperative HEENT: - - lack of hearing Extremities: No cyanosis, Capillary Refill Less than 3 Seconds, No Calf Tenderness, Diminished Peripheral Pulses, Edema Skin: Ulcer/ Wound - no purulence, no erythema, no odor, no acute infection noted. there is continued devitalized slough to the posterior heel margin where his his resting Wound Measurements and Assessment WC - Nurse 1 - General Ulcer Measurement Start: 06/17/17 15:22 Freq: Status: Active Protocol: Activity Type Activity Date Activity User E-Sign Co-Sign Detail Recorded Client Recorded Date Recorded By Document 06/17/17 15:22 [id number] 06/17/17 15:23 06/17/17 15:22 Wound Center Nurse 1 [Ulcer Assessment] #2 R Heel -Combined with other wound No -Current Size (cm) - Length 2.4 -Current Size (cm) - Width 5.0 -Current Size (cm) - Depth 0.1 -Total Square Cm 12.00 -Photo Taken No -Epithelialization None Present -Tunneling No -Undermining/Tunneling No -Circular Undermining No -Exudate Amt Medium (34-66%) -Exudate Type Serosanguineous -Wound Margin Flat & Intact -Granulation Amt Large (67-100%) -Granulation Quality Red -Slough/Fibrin Yes -Necrosis Amt Small (1-33%) -Necrotic Tissue Type Adherent Slough -Structure Exposed N/A -Texture (Abi-wound Skin Appearance) Assessed -Moisture (Abi-wound Skin Appearance Assessed ) Dry/Scaly -Color (Abi-wound Skin Appearance) Assessed Ecchymosis -Temperature (Abi-wound Skin No Abnormality Appearance) (Pt Warm) -Tenderness on Palpation (Abi-wound No Skin Appearance) -Ulcer Cleansing Rinsed/ Irrigated with Saline -Foul Odor after Cleansing No -Anesthetic Used 4% Lidocaine Solution [Edema Assessment] -Lower Limb Edema Present Yes -Right Calf (cm) 29.5 -Right Ankle (cm) 18.8 - Nurse 2 - General Ulcer CM Notes Start: 06/17/17 15:22 Freq: Status: Active Protocol: Activity Type Activity Date Activity User E-Sign Co-Sign Detail Recorded Client Recorded Date Recorded By Document 06/17/17 16:01 [id number] 06/17/17 16:02 06/17/17 16:01 Wound Center Nurse 2 [Procedure/Treatment] #2 R Heel -Time 16:02 -Correct Patient Yes -Correct Side, Site, Position Yes -Correct Procedure Yes -Procedure Performed Yes -Type of Procedure Debridement -Clinical Debridement Subcutaneous -Post Debridement Size (cm) - Length 2.5 -Post Debridement Size (cm) - Width 5 -Post Debridement Size (cm) - Depth 0.1 -Total Square Cm 12.5 -Wound/Ulcer Outcome Not Healed -Ulcer Cleansing Rinsed/ Irrigated with Saline -Foul Odor after Cleansing No -Bioengineered Tissue No -Bleeding Controlled with Pressure -Treatment Response Procedure Tolerated Well [See Physician Procedure note for Specifics] Pain Scale: 0-10 Numeric [Pain] -Is Patient Pain Free? Yes Musculoskeletal: No Tenderness to Palpation of Joints or Extremities, Muscle Wasting, Tenderness - pain with wound manipulation Neurological: Sensory exam intact to light touch and pain Psych/Mental Status: Normal Affect, Appropriate Debridement Note Post-Debridement Measurements/Treatment WC - Nurse 2 - General Ulcer CM Notes Start: 06/17/17 15:22 Freq: Status: Active Protocol: Activity Type Activity Date Activity User E-Sign Co-Sign Detail Recorded Client Recorded Date Recorded By Document 06/17/17 16:01 [id number] 06/17/17 16:02 MARCI 06/17/17 16:01 Wound Center Nurse 2 #2 R Heel -Time 16:02 -Correct Patient Yes -Correct Side, Site, Position Yes -Correct Procedure Yes -Procedure Performed Yes -Type of Procedure Debridement -Clinical Debridement Subcutaneous -Post Debridement Size (cm) - Length 2.5 -Post Debridement Size (cm) - Width 5 -Post Debridement Size (cm) - Depth 0.1 -Total Square Cm 12.5 -Wound/Ulcer Outcome Not Healed -Ulcer Cleansing Rinsed/ Irrigated with Saline -Foul Odor after Cleansing No -Bioengineered Tissue No -Bleeding Controlled with Pressure -Treatment Response Procedure Tolerated Well Pain Scale: 0-10 Numeric Is Patient Pain Free? 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 Diabetes with peripheral neuropathy. Peripheral vascular disease. Gait impairment. Malnutrition suspected. Other comorbidities. On anticoagulation chronic use Plan: I reviewed and discussed the case with the patient today. His diagnostic data was reviewed. Infectious disease is on consultation and recommendations are greatly appreciated. He was responding well to this treatment plan. To continue as advised with antibiotics and he has completed this course this past May 27. His previous cultures demonstrated MRSA, PsA, and anaerobes. A new wound culture today was taken to assess for continued MRSA. MRSA growth was not noted however other bacterial growth still persists; proteus mirabilis and gram positive evelyn. This will be communicated with infectious disease. His labs were reviewed including albumin 2.4 this was obtained from 06/04/2017. Offloading measures were implemented, in particular with respect to the right heel ulceration, which appears to be pressure-related and further complicated with diabetes and lack of arterial perfusion. To offload by hanging heel over a pillow to float in the air. He still did not get the recommended offload device and this is compromising his limb. Supplements have been recommended; a prescription for Gregorio was provided and he continues to take this twice daily. The purpose and proper use and expectations were discussed. A noninvasive lower extremity arterial study in which right monophasic artery was noted. The ABIs were not calculated due to noncompressibility and it looks like he has vascular disease. He saw Dr. Vincent previously who recommends monitoring the situation. Full office notes and recommendations will be requested. He does not have leukocytosis and his white blood cell count 8.7, sedimentation rate 47, albumin 2.3, and prealbumin 13.6. I have reviewed the x-ray CD including a right foot lateral and calcaneal axial. No acute fractures or dislocations or soft tissue emphysema or foreign body were identified. There is no osseous destruction or periosteal reaction suggestive of osteomyelitis adjacent to the ulcer site. He understands serial labs and x-rays will be performed to monitor for bone infection development. MRI or other advanced imaging will be considered pending his continued clinical progression. He defers advanced wound care product, epi fix and further hyperbaric oxygen therapy progression at this time due to cost. This is previously reviewed in great depth with his. Ev and gauze dressing was applied today. To change daily. I answered all his questions. To return to the wound care center in 1 week or sooner if there are any questions or concerns; Dr. Francisco will be covering. I advised him to bring his hearing aid device so we can better communicate with him.
[2017-06-25 15:05] VITALS: BP 100/60; PULSE 66; RESP 18; TEMP 36.6
--- NOTE | 2017-06-25 17:19 | PCM.WC.PN ---
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 Current Visit: Yes Code(s): L97.513 - Non-pressure chronic ulcer of other part of right foot with necrosis of muscle (2) PAD (peripheral artery disease) Status: Chronic Current Visit: Yes Code(s): I73.9 - Peripheral vascular disease, unspecified (3) Ulcer of right lower extremity with fat layer exposed Status: Chronic Current Visit: Yes Code(s): L97.912 - Non-pressure chronic ulcer of unspecified part of right lower leg with fat layer exposed (4) Type 2 diabetes mellitus with diabetic polyneuropathy Status: Chronic Current Visit: Yes Code(s): E11.42 - Type 2 diabetes mellitus with diabetic polyneuropathy (5) Malnutrition Status: Suspected Current Visit: Yes Code(s): E46 - Unspecified protein-calorie malnutrition Type of Wound Date of Service: 06/25/17 Chief Complaint: . Right heel ulcer with resolving infection History of Wound: This is an 81-year-old male who is a resident of [facility] in [place], [place]. The patient is deconditioned, and nonambulatory. He denies fever, chill, nausea, vomiting, odor, or redness. He was previously treated for deep tissue infection that was growing Pseudomonas and MRSA. He completed his antibiotics per infectious disease. He is with his transportation engineering technician today. He does have pain to the wound site and wears a pillow boot only. Progress of Wound: Improving - Physical Exam Vital Signs Temp Pulse Resp BP 98 F 66 18 100/60 06/25/17 15:05 06/25/17 15:05 06/25/17 15:05 06/25/17 15:05 General: Alert, Oriented x3, Cooperative, No apparent distress Extremities: No cyanosis, Capillary Refill Less than 3 Seconds, No Calf Tenderness, Diminished Peripheral Pulses, Edema Skin: Ulcer/ Wound - There is no purulence, no extending erythema, no malodor, or any other signs of acute infection appreciated at this time. There is devitalized tissue as well as adherent slough and biofilm appreciated to the ulcer site as well as an area of slight necrotic tissue to the posterior heel area where the heel is not being sufficiently offloaded Wound Measurements and Assessment WC - Nurse 1 - General Ulcer Measurement Start: 06/17/17 15:22 Freq: Status: Active Protocol: Activity Type Activity Date Activity User E-Sign Co-Sign Detail Recorded Client Recorded Date Recorded By Document 06/25/17 15:05 [id number] 06/25/17 15:14 RB 06/25/17 15:05 Wound Center Nurse 1 [Ulcer Assessment] #2 R Heel -Combined with other wound No -Current Size (cm) - Length 5 -Current Size (cm) - Width 4 -Current Size (cm) - Depth 0.1 -Total Square Cm 20 -Photo Taken Yes -Tunneling No -Undermining/Tunneling No -Circular Undermining No -Classification - Mao Grading ( Grade 3 Diabetic Ulcer) -Exudate Amt Small (1-33%) -Exudate Type Serosanguineous -Wound Margin Distinct, Outline Attached -Granulation Amt Medium (34-66%) -Granulation Quality [place] -Slough/Fibrin Yes -Necrosis Amt Medium (34-66%) -Necrotic Tissue Type Adherent Slough -Structure Exposed N/A -Texture (Abi-wound Skin Appearance) Assessed Callus -Moisture (Abi-wound Skin Appearance Dry/Scaly ) -Color (Abi-wound Skin Appearance) Assessed -Temperature (Abi-wound Skin No Abnormality Appearance) (Pt Warm) -Tenderness on Palpation (Abi-wound No Skin Appearance) -Ulcer Cleansing Rinsed/ Irrigated with Saline -Anesthetic Used 5% Lidocaine Gel WC - Nurse 2 - General Ulcer CM Notes Start: 06/17/17 15:22 Freq: Status: Active Protocol: Activity Type Activity Date Activity User E-Sign Co-Sign Detail Recorded Client Recorded Date Recorded By Document 06/25/17 16:03 [id number] 06/25/17 16:04 06/25/17 16:03 Wound Center Nurse 2 [Procedure/Treatment] -Time 16:03 -Correct Patient Yes -Correct Side, Site, Position Yes -Correct Procedure Yes -Procedure Performed Yes -Type of Procedure Debridement -Clinical Debridement Subcutaneous -Post Debridement Size (cm) - Length 5.1 -Post Debridement Size (cm) - Width 4.1 -Post Debridement Size (cm) - Depth 0.1 -Total Square Cm 20.91 -Wound/Ulcer Outcome Not Healed -Ulcer Cleansing Rinsed/ Irrigated with Saline -Foul Odor after Cleansing No -Bioengineered Tissue No -Topical Lidocaine (%) 5 -Bleeding Controlled with Pressure -Treatment Response Procedure Tolerated Well [See Physician Procedure note for Specifics] Pain Scale: 0-10 Numeric [Pain] -Is Patient Pain Free? Yes Musculoskeletal: No Tenderness to Palpation of Joints or Extremities, Tenderness - some tenderness to ulcer site Neurological: Sensory exam intact to light touch and pain Psych/Mental Status: Normal Affect, Appropriate Debridement Note Post-Debridement Measurements/Treatment WC - Nurse 2 - General Ulcer CM Notes Start: 06/17/17 15:22 Freq: Status: Active Protocol: Activity Type Activity Date Activity User E-Sign Co-Sign Detail Recorded Client Recorded Date Recorded By Document 06/17/17 16:01 [id number] 06/17/17 16:02 JF Document 06/25/17 16:03 TM [id number] 06/25/17 16:04 TM 06/17/17 06/25/17 16:01 16:03 Wound Center Nurse 2 #2 R Heel -Time 16:02 16:03 -Correct Patient Yes Yes -Correct Side, Site, Position Yes Yes -Correct Procedure Yes Yes -Procedure Performed Yes Yes -Type of Procedure Debridement Debridement -Clinical Debridement Subcutaneous Subcutaneous -Post Debridement Size (cm) - Length 2.5 5.1 -Post Debridement Size (cm) - Width 5 4.1 -Post Debridement Size (cm) - Depth 0.1 0.1 -Total Square Cm 12.5 20.91 -Wound/Ulcer Outcome Not Healed Not Healed -Ulcer Cleansing Rinsed/ Rinsed/ Irrigated with Irrigated with Saline Saline -Foul Odor after Cleansing No No -Bioengineered Tissue No No -Topical Lidocaine (%) 5 -Bleeding Controlled with Pressure Pressure -Treatment Response Procedure Procedure Tolerated Well Tolerated Well Pain Scale: 0-10 Numeric Is Patient Pain Free? 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 Diabetes with peripheral neuropathy. Peripheral vascular disease. Gait impairment. Malnutrition suspected. Other comorbidities. On anticoagulation chronic use Plan: Patient was seen today in the absence of Dr. Castaneda. Offloading measures were implemented, in particular with respect to the right heel ulceration, which appears to be pressure-related and further complicated with diabetes and lack of arterial perfusion. To continue to offload by hanging heel over a pillow to float in the air. He still did not get the recommended offload device and this is compromising his limb. Supplements have been recommended; a prescription for Gregorio was provided and he continues to take this twice daily. A noninvasive lower extremity arterial study in which right monophasic artery was noted. The ABIs were not calculated due to noncompressibility and it looks like he has vascular disease. He saw Dr. Vincent previously who recommends monitoring the situation. He defers advanced wound care product, epi fix and further hyperbaric oxygen therapy progression at this time due to cost. Ev and gauze dressing was applied today following his debridment. The dressing is to be changed daily. All questions were answered to the patient's satisfaction. He is to return to the wound care center in 1 week or sooner if there are any questions or concerns.
--- NOTE | 2017-06-25 17:29 | PN.PCM_ITS ---
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 Current Visit: Yes Code(s): L97.513 - Non-pressure chronic ulcer of other part of right foot with necrosis of muscle (2) PAD (peripheral artery disease) Status: Chronic Current Visit: Yes Code(s): I73.9 - Peripheral vascular disease, unspecified (3) Ulcer of right lower extremity with fat layer exposed Status: Chronic Current Visit: Yes Code(s): L97.912 - Non-pressure chronic ulcer of unspecified part of right lower leg with fat layer exposed (4) Type 2 diabetes mellitus with diabetic polyneuropathy Status: Chronic Current Visit: Yes Code(s): E11.42 - Type 2 diabetes mellitus with diabetic polyneuropathy (5) Malnutrition Status: Suspected Current Visit: Yes Code(s): E46 - Unspecified protein- calorie malnutrition Type of Wound Date of Service: 06/25/17 Chief Complaint: . Right heel ulcer with resolving infection History of Wound: This is an 81-year-old male who is a resident of [facility] in [place], [place]. The patient is deconditioned, and nonambulatory. He denies fever, chill, nausea, vomiting, odor, or redness. He was previously treated for deep tissue infection that was growing Pseudomonas and MRSA. He completed his antibiotics per infectious disease. He is with his transportation planning technician today. He does have pain to the wound site and wears a pillow boot only. Progress of Wound: Improving - Physical Exam Vital Signs Temp Pulse Resp BP 98 F 66 18 100/60 06/25/17 15:05 06/25/17 15:05 06/25/17 15:05 06/25/17 15:05 General: Alert, Oriented x3, Cooperative, No apparent distress Extremities: No cyanosis, Capillary Refill Less than 3 Seconds, No Calf Tenderness, Diminished Peripheral Pulses, Edema Skin: Ulcer/ Wound - There is no purulence, no extending erythema, no malodor, or any other signs of acute infection appreciated at this time. There is devitalized tissue as well as adherent slough and biofilm appreciated to the ulcer site as well as an area of slight necrotic tissue to the posterior heel area where the heel is not being sufficiently offloaded Wound Measurements and Assessment WC - Nurse 1 - General Ulcer Measurement Start: 06/17/17 15:22 Freq: Status: Active Protocol: Activity Type Activity Date Activity User E-Sign Co-Sign Detail Recorded Client Recorded Date Recorded By Document 06/25/17 15:05 [id number] 06/25/17 15:14 RB 06/25/17 15:05 Wound Center Nurse 1 [Ulcer Assessment] #2 R Heel -Combined with other wound No -Current Size (cm) - Length 5 -Current Size (cm) - Width 4 -Current Size (cm) - Depth 0.1 -Total Square Cm 20 -Photo Taken Yes -Tunneling No -Undermining/Tunneling No -Circular Undermining No -Classification - Mao Grading ( Grade 3 Diabetic Ulcer) -Exudate Amt Small (1-33%) -Exudate Type Serosanguineous -Wound Margin Distinct, Outline Attached -Granulation Amt Medium (34-66%) -Granulation Quality [place] -Slough/Fibrin Yes -Necrosis Amt Medium (34-66%) -Necrotic Tissue Type Adherent Slough -Structure Exposed N/A -Texture (Abi-wound Skin Appearance) Assessed Callus -Moisture (Abi-wound Skin Appearance Dry/Scaly ) -Color (Abi-wound Skin Appearance) Assessed -Temperature (Abi-wound Skin No Abnormality Appearance) (Pt Warm) -Tenderness on Palpation (Abi-wound No Skin Appearance) -Ulcer Cleansing Rinsed/ Irrigated with Saline -Anesthetic Used 5% Lidocaine Gel WC - Nurse 2 - General Ulcer CM Notes Start: 06/17/17 15:22 Freq: Status: Active Protocol: Activity Type Activity Date Activity User E-Sign Co-Sign Detail Recorded Client Recorded Date Recorded By Document 06/25/17 16:03 [id number] 06/25/17 16:04 06/25/17 16:03 Wound Center Nurse 2 [Procedure/Treatment] -Time 16:03 -Correct Patient Yes -Correct Side, Site, Position Yes -Correct Procedure Yes -Procedure Performed Yes -Type of Procedure Debridement -Clinical Debridement Subcutaneous -Post Debridement Size (cm) - Length 5.1 -Post Debridement Size (cm) - Width 4.1 -Post Debridement Size (cm) - Depth 0.1 -Total Square Cm 20.91 -Wound/Ulcer Outcome Not Healed -Ulcer Cleansing Rinsed/ Irrigated with Saline -Foul Odor after Cleansing No -Bioengineered Tissue No -Topical Lidocaine (%) 5 -Bleeding Controlled with Pressure -Treatment Response Procedure Tolerated Well [See Physician Procedure note for Specifics] Pain Scale: 0-10 Numeric [Pain] -Is Patient Pain Free? Yes Musculoskeletal: No Tenderness to Palpation of Joints or Extremities, Tenderness - some tenderness to ulcer site Neurological: Sensory exam intact to light touch and pain Psych/Mental Status: Normal Affect, Appropriate Debridement Note Post-Debridement Measurements/Treatment WC - Nurse 2 - General Ulcer CM Notes Start: 06/17/17 15:22 Freq: Status: Active Protocol: Activity Type Activity Date Activity User E-Sign Co-Sign Detail Recorded Client Recorded Date Recorded By Document 06/17/17 16:01 [id number] 06/17/17 16:02 JF Document 06/25/17 16:03 TM [id number] 06/25/17 16:04 TM 06/17/17 06/25/17 16:01 16:03 Wound Center Nurse 2 #2 R Heel -Time 16:02 16:03 -Correct Patient Yes Yes -Correct Side, Site, Position Yes Yes -Correct Procedure Yes Yes -Procedure Performed Yes Yes -Type of Procedure Debridement Debridement -Clinical Debridement Subcutaneous Subcutaneous -Post Debridement Size (cm) - Length 2.5 5.1 -Post Debridement Size (cm) - Width 5 4.1 -Post Debridement Size (cm) - Depth 0.1 0.1 -Total Square Cm 12.5 20.91 -Wound/Ulcer Outcome Not Healed Not Healed -Ulcer Cleansing Rinsed/ Rinsed/ Irrigated with Irrigated with Saline Saline -Foul Odor after Cleansing No No -Bioengineered Tissue No No -Topical Lidocaine (%) 5 -Bleeding Controlled with Pressure Pressure -Treatment Response Procedure Procedure Tolerated Well Tolerated Well Pain Scale: 0-10 Numeric Is Patient Pain Free? 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 Diabetes with peripheral neuropathy. Peripheral vascular disease. Gait impairment. Malnutrition suspected. Other comorbidities. On anticoagulation chronic use Plan: Patient was seen today in the absence of Dr. Castaneda. Offloading measures were implemented, in particular with respect to the right heel ulceration, which appears to be pressure-related and further complicated with diabetes and lack of arterial perfusion. To continue to offload by hanging heel over a pillow to float in the air. He still did not get the recommended offload device and this is compromising his limb. Supplements have been recommended; a prescription for Gregorio was provided and he continues to take this twice daily. A noninvasive lower extremity arterial study in which right monophasic artery was noted. The ABIs were not calculated due to noncompressibility and it looks like he has vascular disease. He saw Dr. Vincent previously who recommends monitoring the situation. He defers advanced wound care product, epi fix and further hyperbaric oxygen therapy progression at this time due to cost. Ev and gauze dressing was applied today following his debridment. The dressing is to be changed daily. All questions were answered to the patient's satisfaction. He is to return to the wound care center in 1 week or sooner if there are any questions or concerns.
[2017-07-01 15:29] VITALS: BP 106/58; PULSE 61; RESP 18; TEMP 36.4
--- NOTE | 2017-07-01 16:02 | PN.PCM_ITS ---
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 Current Visit: Yes Code(s): L97.513 - Non-pressure chronic ulcer of other part of right foot with necrosis of muscle (2) PAD (peripheral artery disease) Status: Chronic Current Visit: Yes Code(s): I73.9 - Peripheral vascular disease, unspecified (3) Ulcer of right lower extremity with fat layer exposed Status: Chronic Current Visit: Yes Code(s): L97.912 - Non-pressure chronic ulcer of unspecified part of right lower leg with fat layer exposed (4) Type 2 diabetes mellitus with diabetic polyneuropathy Status: Chronic Current Visit: Yes Code(s): E11.42 - Type 2 diabetes mellitus with diabetic polyneuropathy (5) Malnutrition Status: Suspected Current Visit: Yes Code(s): E46 - Unspecified protein- calorie malnutrition Type of Wound Date of Service: 07/03/17 Chief Complaint: . Right heel ulcer with resolving infection History of Wound: This is an 81-year-old male who is a resident of [facility], [place], operated by [facility] in [place], [place]. The patient is deconditioned, and nonambulatory. He denies fever, chill, nausea, vomiting, odor, or redness. He was previously treated for deep tissue infection that was growing Pseudomonas and MRSA. He completed his antibiotics per infectious disease. He is with his daughter today. Since his last visit, he obtained a wheelchair that has elevation capabilities and a donut pillow as advised to further offload the wound. Progress of Wound: Improving - Physical Exam Vital Signs Temp Pulse Resp BP 97.5 F L 61 18 106/58 L 07/01/17 15:29 07/01/17 15:29 07/01/17 15:29 07/01/17 15:29 General: Alert, Oriented x3, Cooperative Extremities: No cyanosis, Capillary Refill Less than 3 Seconds, No Calf Tenderness, Diminished Peripheral Pulses, Edema Skin: Ulcer/ Wound - No purulence, erythema, streaking, no odor, no infection. The wound bed is healthy and granular and there is no further eschar formation to the posterior aspect, - - Peripheral skin atrophic Wound Measurements and Assessment WC - Nurse 1 - General Ulcer Measurement Start: 06/17/17 15:22 Freq: Status: Active Protocol: Activity Type Activity Date Activity User E-Sign Co-Sign Detail Recorded Client Recorded Date Recorded By Document 07/01/17 15:29 RB [id number] 07/01/17 15:38 RB 07/01/17 15:29 Wound Center Nurse 1 [Ulcer Assessment] #2 R Heel -Combined with other wound No -Current Size (cm) - Length 3.5 -Current Size (cm) - Width 4.5 -Current Size (cm) - Depth 0.1 -Total Square Cm 15.75 -Photo Taken No -Epithelialization Small 1-33% -Tunneling No -Undermining/Tunneling No -Circular Undermining No -Classification - Mao Grading ( Grade 3 Diabetic Ulcer) -Exudate Amt Small (1-33%) -Exudate Type Serosanguineous -Wound Margin Distinct, Outline Attached -Granulation Amt Medium (34-66%) -Granulation Quality [place] -Slough/Fibrin Yes -Necrosis Amt Medium (34-66%) -Necrotic Tissue Type Adherent Slough -Structure Exposed N/A -Texture (Abi-wound Skin Appearance) Callus -Moisture (Abi-wound Skin Appearance Assessed ) -Color (Abi-wound Skin Appearance) Assessed -Temperature (Abi-wound Skin No Abnormality Appearance) (Pt Warm) -Tenderness on Palpation (Abi-wound No Skin Appearance) -Ulcer Cleansing Rinsed/ Irrigated with Saline -Foul Odor after Cleansing No -Anesthetic Used 5% Lidocaine Gel [Edema Assessment] -Lower Limb Edema Present Yes -Right Calf (cm) 30 -Right Ankle (cm) 20.4 WC - Nurse 2 - General Ulcer CM Notes Start: 06/17/17 15:22 Freq: Status: Active Protocol: Activity Type Activity Date Activity User E-Sign Co-Sign Detail Recorded Client Recorded Date Recorded By Document 07/01/17 15:56 [id number] 07/01/17 15:57 07/01/17 15:56 Wound Center Nurse 2 [Procedure/Treatment] #2 R Heel -Time 15:57 -Correct Patient Yes -Correct Side, Site, Position Yes -Correct Procedure Yes -Procedure Performed Yes -Type of Procedure Debridement -Clinical Debridement Subcutaneous -Post Debridement Size (cm) - Length 3.5 -Post Debridement Size (cm) - Width 4.5 -Post Debridement Size (cm) - Depth 0.1 -Total Square Cm 15.75 -Wound/Ulcer Outcome Not Healed -Ulcer Cleansing Rinsed/ Irrigated with Saline -Foul Odor after Cleansing No -Bioengineered Tissue No -Bleeding Controlled with Pressure -Treatment Response Procedure Tolerated Well [See Physician Procedure note for Specifics] Pain Scale: 0-10 Numeric [Pain] -Is Patient Pain Free? Yes Musculoskeletal: No Tenderness to Palpation of Joints or Extremities, Muscle Wasting, Tenderness - Pain with manipulation Neurological: - - Lack of epicritic sensation light touch his altered Psych/Mental Status: Normal Affect, Appropriate Debridement Note Post-Debridement Measurements/Treatment WC - Nurse 2 - General Ulcer CM Notes Start: 06/17/17 15:22 Freq: Status: Active Protocol: Activity Type Activity Date Activity User E-Sign Co-Sign Detail Recorded Client Recorded Date Recorded By Document 06/17/17 16:01 [id number] 06/17/17 16:02 Document 06/25/17 16:03 [email or web address] [id number] 06/25/17 16:04 Document 07/01/17 15:56 [id number] 07/01/17 15:57 06/17/17 06/25/17 07/01/17 16:01 16:03 15:56 Wound Center Nurse 2 #2 R Heel -Time 16:02 16:03 15:57 -Correct Patient Yes Yes Yes -Correct Side, Site, Position Yes Yes Yes -Correct Procedure Yes Yes Yes -Procedure Performed Yes Yes Yes -Type of Procedure Debridement Debridement Debridement -Clinical Debridement Subcutaneous Subcutaneous Subcutaneous -Post Debridement Size (cm) - Length 2.5 5.1 3.5 -Post Debridement Size (cm) - Width 5 4.1 4.5 -Post Debridement Size (cm) - Depth 0.1 0.1 0.1 -Total Square Cm 12.5 20.91 15.75 -Wound/Ulcer Outcome Not Healed Not Healed Not Healed -Ulcer Cleansing Rinsed/ Rinsed/ Rinsed/ Irrigated with Irrigated with Irrigated with Saline Saline Saline -Foul Odor after Cleansing No No No -Bioengineered Tissue No No No -Topical Lidocaine (%) 5 -Bleeding Controlled with Pressure Pressure Pressure -Treatment Response Procedure Procedure Procedure Tolerated Well Tolerated Well Tolerated Well Pain Scale: 0-10 Numeric Is Patient Pain Free? 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 Diabetes with peripheral neuropathy. Peripheral vascular disease. Gait impairment. Malnutrition suspected. Other comorbidities. On anticoagulation chronic use Plan: I reviewed and discussed his case. Debridement was performed in the clinical panel. Offloading measures were implemented, in particular with respect to the right heel ulceration, which appears to be pressure-related and further complicated with diabetes and lack of arterial perfusion. To continue to offload by hanging heel over a pillow to float in the air. He did get the recommended offload device. Supplements have been recommended; a prescription for Gregorio was provided and he continues to take this twice daily. A noninvasive lower extremity arterial study in which right monophasic artery was noted. The ABIs were not calculated due to noncompressibility and it looks like he has vascular disease. He saw Dr. Vincent previously who recommends monitoring the situation. He defers advanced wound care product, epi fix and further hyperbaric oxygen therapy progression at this time due to cost. Ev and gauze dressing was applied today following his debridment. The dressing is to be changed daily. All questions were answered to the patient's satisfaction. He is to return to the wound care center in 1 week or sooner if there are any questions or concerns.
[2017-07-08 15:16] VITALS: BP 108/65; PULSE 75; RESP 18; TEMP 36.2
--- NOTE | 2017-07-08 16:32 | PN.PCM_ITS ---
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 Code(s): L97.513 - Non-pressure chronic ulcer of other part of right foot with necrosis of muscle (2) PAD (peripheral artery disease) Status: Chronic Code(s): I73.9 - Peripheral vascular disease, unspecified (3) Ulcer of right lower extremity with fat layer exposed Status: Chronic Code(s): L97.912 - Non-pressure chronic ulcer of unspecified part of right lower leg with fat layer exposed (4) Type 2 diabetes mellitus with diabetic polyneuropathy Status: Chronic Code(s): E11.42 - Type 2 diabetes mellitus with diabetic polyneuropathy (5) Malnutrition Status: Suspected Code(s): E46 - Unspecified protein-calorie malnutrition Type of Wound Date of Service: 07/13/17 Chief Complaint: . Right heel ulcer with resolving infection History of Wound: This is an 81-year-old male who is a resident of [facility] in [place], [place]. The patient is deconditioned, and nonambulatory. He denies fever, chill, nausea, vomiting, odor, or redness. He was previously treated for deep tissue infection that was growing Pseudomonas and MRSA. He completed his antibiotics per infectious disease. He is with his daughter today. He continues to use a wheelchair that has elevation capabilities and a donut pillow as advised to further offload the wound. However he relates the donut pillow was lost the last couple of days. Progress of Wound: Improving - Physical Exam Vital Signs Temp Pulse Resp BP 97.1 F L 75 18 108/65 07/08/17 15:16 07/08/17 15:16 07/08/17 15:16 07/08/17 15:16 General: Alert, Oriented x3, Cooperative Extremities: No cyanosis, Capillary Refill Less than 3 Seconds, No Calf Tenderness - negative duc and lopez bilateral, Diminished Peripheral Pulses, Edema Skin: Ulcer/ Wound - no purulence, no erythema, no odor, no infection noted right. atrophic skin and hairless right. decreased devitalized tissue to ulcer site. the wound bed is beefy red and granular Wound Measurements and Assessment WC - Nurse 1 - General Ulcer Measurement Start: 06/17/17 15:22 Freq: Status: Active Protocol: Activity Type Activity Date Activity User E-Sign Co-Sign Detail Recorded Client Recorded Date Recorded By Document 07/08/17 15:16 [id number] 07/08/17 15:25 RB 07/08/17 15:16 Wound Center Nurse 1 [Ulcer Assessment] #2 R Heel -Combined with other wound No -Current Size (cm) - Length 3 -Current Size (cm) - Width 2.7 -Current Size (cm) - Depth 0.1 -Total Square Cm 8.1 -Photo Taken No -Tunneling No -Undermining/Tunneling No -Circular Undermining No -Classification - Mao Grading ( Grade 3 Diabetic Ulcer) -Exudate Amt Small (1-33%) -Exudate Type Serosanguineous -Wound Margin Distinct, Outline Attached -Granulation Amt Large (67-100%) -Granulation Quality [place] Red -Slough/Fibrin Yes -Necrosis Amt Small (1-33%) -Necrotic Tissue Type Adherent Slough -Structure Exposed N/A -Texture (Abi-wound Skin Appearance) Callus -Moisture (Abi-wound Skin Appearance Assessed ) -Color (Abi-wound Skin Appearance) Assessed -Temperature (Abi-wound Skin No Abnormality Appearance) (Pt Warm) -Tenderness on Palpation (Abi-wound No Skin Appearance) -Ulcer Cleansing Wound Cleanser -Foul Odor after Cleansing No -Anesthetic Used 4% Lidocaine Solution WC - Nurse 2 - General Ulcer CM Notes Start: 06/17/17 15:22 Freq: Status: Active Protocol: Activity Type Activity Date Activity User E-Sign Co-Sign Detail Recorded Client Recorded Date Recorded By Document 07/08/17 15:47 [id number] 07/08/17 15:47 07/08/17 15:47 Wound Center Nurse 2 [Procedure/Treatment] -Time 15:47 -Correct Patient Yes -Correct Side, Site, Position Yes -Correct Procedure Yes -Procedure Performed Yes -Type of Procedure Debridement -Clinical Debridement Subcutaneous -Post Debridement Size (cm) - Length 3.0 -Post Debridement Size (cm) - Width 2.8 -Post Debridement Size (cm) - Depth 0.1 -Total Square Cm 8.40 -Wound/Ulcer Outcome Not Healed -Ulcer Cleansing Rinsed/ Irrigated with Saline -Foul Odor after Cleansing No -Bioengineered Tissue No -Bleeding Controlled with Pressure -Treatment Response Procedure Tolerated Well [See Physician Procedure note for Specifics] Pain Scale: 0-10 Numeric [Pain] -Is Patient Pain Free? Yes Musculoskeletal: No Tenderness to Palpation of Joints or Extremities, Muscle Wasting Neurological: Sensory exam intact to light touch and pain Psych/Mental Status: Normal Affect, Appropriate Debridement Note Post-Debridement Measurements/Treatment WC - Nurse 2 - General Ulcer CM Notes Start: 06/17/17 15:22 Freq: Status: Active Protocol: Activity Type Activity Date Activity User E-Sign Co-Sign Detail Recorded Client Recorded Date Recorded By Document 06/17/17 16:01 [id number] 06/17/17 16:02 Document 06/25/17 16:03 [id number] 06/25/17 16:04 Document 07/01/17 15:56 [id number] 07/01/17 15:57 Document 07/08/17 15:47 [id number] 07/08/17 15:47 06/17/17 06/25/17 07/01/17 16:01 16:03 15:56 Wound Center Nurse 2 #2 R Heel -Time 16:02 16:03 15:57 -Correct Patient Yes Yes Yes -Correct Side, Site, Position Yes Yes Yes -Correct Procedure Yes Yes Yes -Procedure Performed Yes Yes Yes -Type of Procedure Debridement Debridement Debridement -Clinical Debridement Subcutaneous Subcutaneous Subcutaneous -Post Debridement Size (cm) - Length 2.5 5.1 3.5 -Post Debridement Size (cm) - Width 5 4.1 4.5 -Post Debridement Size (cm) - Depth 0.1 0.1 0.1 -Total Square Cm 12.5 20.91 15.75 -Wound/Ulcer Outcome Not Healed Not Healed Not Healed -Ulcer Cleansing Rinsed/ Rinsed/ Rinsed/ Irrigated with Irrigated with Irrigated with Saline Saline Saline -Foul Odor after Cleansing No No No -Bioengineered Tissue No No No -Topical Lidocaine (%) 5 -Bleeding Controlled with Pressure Pressure Pressure -Treatment Response Procedure Procedure Procedure Tolerated Well Tolerated Well Tolerated Well Pain Scale: 0-10 Numeric Is Patient Pain Free? Yes Yes Yes 07/08/17 15:47 Wound Center Nurse 2 #2 R Heel -Time 15:47 -Correct Patient Yes -Correct Side, Site, Position Yes -Correct Procedure Yes -Procedure Performed Yes -Type of Procedure Debridement -Clinical Debridement Subcutaneous -Post Debridement Size (cm) - Length 3.0 -Post Debridement Size (cm) - Width 2.8 -Post Debridement Size (cm) - Depth 0.1 -Total Square Cm 8.40 -Wound/Ulcer Outcome Not Healed -Ulcer Cleansing Rinsed/ Irrigated with Saline -Foul Odor after Cleansing No -Bioengineered Tissue No -Topical Lidocaine (%) -Bleeding Controlled with Pressure -Treatment Response Procedure Tolerated Well Pain Scale: 0-10 Numeric Is Patient Pain Free? Yes Wound debrided: heel Laterality: Right Wound Grade/Stage: grade 3 Type of Debridement: Excisional debridement Anesthesia Used: 5% Lidocaine Gel Depth: in the subcutaneous layer Percentage of wound debrided: 100 Instrument Used: #15 blade Tissue Removed: fibrous, devitalized subcutaneous, biofilm, slough Severity: Fat Layer Exposed Amount of bleeding with debridement: Mild Bleeding Controlled with: Pressure Patient tolerated procedure well Assessment/Plan Assessment: grade 3 ulcer right heel with necrotic infected muscle / deep tissue. Diabetes with peripheral neuropathy. Peripheral vascular disease. Gait impairment. Malnutrition suspected. Other comorbidities. On anticoagulation chronic use Plan: I reviewed and discussed his case. Debridement was performed in the clinical panel. Offloading measures were implemented, in particular with respect to the right heel ulceration, which appears to be pressure-related and further complicated with diabetes and lack of arterial perfusion. To continue to offload by hanging heel over a pillow to float in the air. He did get the recommended offload device. A note was provided to encourage his skilled facility nurse to relocate the offloading donut pillow that is imperative for his healing process. Supplements have been recommended; a prescription for Gregorio was provided and he continues to take this twice daily. A noninvasive lower extremity arterial study in which right monophasic artery was noted. The ABIs were not calculated due to noncompressibility and it looks like he has vascular disease. He saw Dr. Vincent previously who recommends monitoring the situation. He defers advanced wound care product, epi fix and further hyperbaric oxygen therapy progression at this time due to cost. Ev and gauze dressing was applied today following his debridment. The dressing is to be changed daily. All questions were answered to the patient's satisfaction. He is to return to the wound care center in 1 week or sooner if there are any questions or concerns.
[2017-07-15 15:38] VITALS: BP 131/74; PULSE 103; RESP 20; TEMP 36.3
--- NOTE | 2017-07-15 16:38 | PN.PCM_ITS ---
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 Current Visit: Yes Code(s): L97.513 - Non-pressure chronic ulcer of other part of right foot with necrosis of muscle (2) PAD (peripheral artery disease) Status: Chronic Current Visit: Yes Code(s): I73.9 - Peripheral vascular disease, unspecified (3) Ulcer of right lower extremity with fat layer exposed Status: Chronic Current Visit: Yes Code(s): L97.912 - Non-pressure chronic ulcer of unspecified part of right lower leg with fat layer exposed (4) Type 2 diabetes mellitus with diabetic polyneuropathy Status: Chronic Current Visit: Yes Code(s): E11.42 - Type 2 diabetes mellitus with diabetic polyneuropathy (5) Malnutrition Status: Suspected Current Visit: Yes Code(s): E46 - Unspecified protein- calorie malnutrition Type of Wound Date of Service: 07/16/17 Chief Complaint: . Right heel ulcer with resolving infection History of Wound: This is an 81-year-old male who is a resident of [facility] in [place], [place]. The patient is deconditioned, and nonambulatory. He denies fever, chill, nausea, vomiting, odor, or redness. He was previously treated for deep tissue infection that was growing Pseudomonas and MRSA. He completed his antibiotics per infectious disease. He is with his daughter today. He continues to use a wheelchair that has elevation capabilities and he resumed donut pillow use. Progress of Wound: Improving - Physical Exam Vital Signs Temp Pulse Resp BP 97.4 F L 103 H 20 H 131/74 H 07/15/17 15:38 07/15/17 15:38 07/15/17 15:38 07/15/17 15:38 General: Alert, Oriented x3, Cooperative Extremities: No cyanosis, Capillary Refill Less than 3 Seconds, No Calf Tenderness, Diminished Peripheral Pulses, Edema Skin: Ulcer/ Wound - no purulence, no erythema, no infection, no exposed bone, no streaking. granular base, - - atrophic skin, no eschar Wound Measurements and Assessment WC - Nurse 1 - General Ulcer Measurement Start: 06/17/17 15:22 Freq: Status: Active Protocol: Activity Type Activity Date Activity User E-Sign Co-Sign Detail Recorded Client Recorded Date Recorded By Document 07/15/17 15:38 DL [id number] 07/15/17 15:51 DL 07/15/17 15:38 Wound Center Nurse 1 [Ulcer Assessment] #2 R Heel -Current Size (cm) - Length 3.2 -Current Size (cm) - Width 4 -Current Size (cm) - Depth 0.1 -Total Square Cm 12.8 -Photo Taken No -Exudate Amt Small (1-33%) -Exudate Type Serosanguineous -Wound Margin Distinct, Outline Attached -Granulation Amt Large (67-100%) -Granulation Quality Red -Necrosis Amt Small (1-33%) -Necrotic Tissue Type Adherent Slough -Structure Exposed N/A -Texture (Abi-wound Skin Appearance) Scarring -Moisture (Aib-wound Skin Appearance No Abnormality ) -Color (Abi-wound Skin Appearance) Hemosiderin Staining -Temperature (Abi-wound Skin No Abnormality Appearance) (Pt Warm) -Ulcer Cleansing Rinsed/ Irrigated with Saline -Foul Odor after Cleansing No -Anesthetic Used 4% Lidocaine Solution WC - Nurse 2 - General Ulcer CM Notes Start: 06/17/17 15:22 Freq: Status: Active Protocol: Activity Type Activity Date Activity User E-Sign Co-Sign Detail Recorded Client Recorded Date Recorded By Document 07/15/17 16:00 [id number] 07/15/17 16:02 07/15/17 16:00 Wound Center Nurse 2 [Procedure/Treatment] -Time 16:02 -Correct Patient Yes -Correct Side, Site, Position Yes -Correct Procedure Yes -Procedure Performed Yes -Type of Procedure Debridement -Clinical Debridement Subcutaneous -Post Debridement Size (cm) - Length 2.8 -Post Debridement Size (cm) - Width 4.8 -Post Debridement Size (cm) - Depth 0.1 -Total Square Cm 13.44 -Wound/Ulcer Outcome Not Healed -Ulcer Cleansing Rinsed/ Irrigated with Saline -Foul Odor after Cleansing No -Bioengineered Tissue No -Bleeding Controlled with Pressure -Treatment Response Procedure Tolerated Well [See Physician Procedure note for Specifics] Pain Scale: 0-10 Numeric [Pain] -Is Patient Pain Free? Yes Musculoskeletal: No Tenderness to Palpation of Joints or Extremities, Muscle Wasting, Tenderness - mild tenderness with wound manipulation, - - negative duc and lopez bilateral Neurological: - - lack of epicritic sensation via light touch right lower extremity Psych/Mental Status: Normal Affect, Appropriate Debridement Note Post-Debridement Measurements/Treatment WC - Nurse 2 - General Ulcer CM Notes Start: 06/17/17 15:22 Freq: Status: Active Protocol: Activity Type Activity Date Activity User E-Sign Co-Sign Detail Recorded Client Recorded Date Recorded By Document 06/17/17 16:01 [id number] 06/17/17 16:02 Document 06/25/17 16:03 [email or web address] [id number] 06/25/17 16:04 Document 07/01/17 15:56 [id number] 07/01/17 15:57 Document 07/08/17 15:47 [id number] 07/08/17 15:47 Document 07/15/17 16:00 [id number] 07/15/17 16:02 06/17/17 06/25/17 07/01/17 16:01 16:03 15:56 Wound Center Nurse 2 #2 R Heel -Time 16:02 16:03 15:57 -Correct Patient Yes Yes Yes -Correct Side, Site, Position Yes Yes Yes -Correct Procedure Yes Yes Yes -Procedure Performed Yes Yes Yes -Type of Procedure Debridement Debridement Debridement -Clinical Debridement Subcutaneous Subcutaneous Subcutaneous -Post Debridement Size (cm) - Length 2.5 5.1 3.5 -Post Debridement Size (cm) - Width 5 4.1 4.5 -Post Debridement Size (cm) - Depth 0.1 0.1 0.1 -Total Square Cm 12.5 20.91 15.75 -Wound/Ulcer Outcome Not Healed Not Healed Not Healed -Ulcer Cleansing Rinsed/ Rinsed/ Rinsed/ Irrigated with Irrigated with Irrigated with Saline Saline Saline -Foul Odor after Cleansing No No No -Bioengineered Tissue No No No -Topical Lidocaine (%) 5 -Bleeding Controlled with Pressure Pressure Pressure -Treatment Response Procedure Procedure Procedure Tolerated Well Tolerated Well Tolerated Well Pain Scale: 0-10 Numeric Is Patient Pain Free? Yes Yes Yes 07/08/17 07/15/17 15:47 16:00 Wound Center Nurse 2 #2 R Heel -Time 15:47 16:02 -Correct Patient Yes Yes -Correct Side, Site, Position Yes Yes -Correct Procedure Yes Yes -Procedure Performed Yes Yes -Type of Procedure Debridement Debridement -Clinical Debridement Subcutaneous Subcutaneous -Post Debridement Size (cm) - Length 3.0 2.8 -Post Debridement Size (cm) - Width 2.8 4.8 -Post Debridement Size (cm) - Depth 0.1 0.1 -Total Square Cm 8.40 13.44 -Wound/Ulcer Outcome Not Healed Not Healed -Ulcer Cleansing Rinsed/ Rinsed/ Irrigated with Irrigated with Saline Saline -Foul Odor after Cleansing No No -Bioengineered Tissue No No -Topical Lidocaine (%) -Bleeding Controlled with Pressure Pressure -Treatment Response Procedure Procedure Tolerated Well Tolerated Well Pain Scale: 0-10 Numeric Is Patient Pain Free? 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 Diabetes with peripheral neuropathy. Peripheral vascular disease. Gait impairment. Malnutrition suspected. Other comorbidities. On anticoagulation chronic use Plan: I reviewed and discussed his case. Debridement was performed in the clinical panel. Offloading measures were implemented, in particular with respect to the right heel ulceration, which appears to be pressure-related and further complicated with diabetes and lack of arterial perfusion. To continue to offload by hanging heel over a pillow to float in the air. He did get the recommended offload device; donut pillow. A prescription for Gregorio was provided and he continues to take this twice daily. A noninvasive lower extremity arterial study in which right monophasic artery was noted. The ABIs were not calculated due to noncompressibility and it looks like he has vascular disease. He saw Dr. Vincent previously who recommends monitoring the situation. He defers advanced wound care product, epi fix and further hyperbaric oxygen therapy progression at this time due to cost. Ev and gauze dressing was applied today following his debridment. He defers application of advanced wound care product today. The dressing is to be changed daily. All questions were answered to the patient's satisfaction. He is to return to the wound care center in 1 week or sooner if there are any questions or concerns.
== END 2017-07-16 23:59 ==
LOC: WC 15:00
PROVIDERS: Family Provider Family Medicine; PCP Family Medicine; Visit Provider Podiatrist
DX: L97.513 Non-pressure chronic ulcer of other part of right foot with necrosis of muscle (principal); I73.9 Peripheral vascular disease, unspecified; L97.912 Non-pressure chronic ulcer of unspecified part of right lower leg with fat layer exposed; E11.42 Type 2 diabetes mellitus with diabetic polyneuropathy; E46 Unspecified protein-calorie malnutrition; Z86.14 Personal history of Methicillin resistant Staphylococcus aureus infection
CPT/HCPCS: 11042; 11045

== ENCOUNTER 2017-08-12 15:00 | Outpatient (RCR) | payer MEDICARE, MEDICAID, SELFPAY ==
[2017-07-17 00:41] VITALS: BP 131/74; PULSE 103; RESP 20; TEMP 36.3
[2017-07-29 10:30] VITALS: BP 120/66; PULSE 57; RESP 18; TEMP 36.1
--- NOTE | 2017-07-29 11:17 | PN.PCM_ITS ---
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 Right heel ulcer History of Wound: This is an 81-year-old male who is a resident of [facility] in [place], [place]. The patient is deconditioned, and nonambulatory. He denies fever, chill, nausea, vomiting, odor, or redness. He was previously treated for deep tissue infection that was growing Pseudomonas and MRSA. He completed his antibiotics per infectious disease. He is with his daughter today. He continues to use a wheelchair that has elevation capabilities and he resumed donut pillow use. Progress of Wound: Improving - Physical Exam Vital Signs Temp Pulse Resp BP 97 F L 57 L 18 120/66 07/29/17 10:30 07/29/17 10:30 07/29/17 10:30 07/29/17 10:30 General: Alert, Oriented x3, Cooperative Extremities: No cyanosis, Capillary Refill Less than 3 Seconds, No Calf Tenderness - Negative [place] and Vera right, Diminished Peripheral Pulses, Edema Skin: Ulcer/ Wound - No purulence, no erythema, streaking, odor, no acute infection right foot. There is peripheral epithelialization and resolve necrosis and eschar tissue in the wound bed. Wound bed is beefy red granular. The peripheral skin is atrophic and without hair right lower extremity Wound Measurements and Assessment WC - Nurse 1 - General Ulcer Measurement Start: 07/29/17 10:29 Freq: Status: Active Protocol: Activity Type Activity Date Activity User E-Sign Co-Sign Detail Recorded Client Recorded Date Recorded By Document 07/29/17 10:30 RB [id number] 07/29/17 10:43 RB 07/29/17 10:30 Wound Center Nurse 1 [Ulcer Assessment] #2 R Heel -Combined with other wound No -Current Size (cm) - Length 3.5 -Current Size (cm) - Width 4 -Current Size (cm) - Depth 0.1 -Total Square Cm 14.0 -Photo Taken No -Tunneling No -Undermining/Tunneling No -Circular Undermining No -Classification - Thickness Full Thickness with Exposed Support Structure -Exudate Amt Small (1-33%) -Exudate Type Serosanguineous -Wound Margin Distinct, Outline Attached -Granulation Amt Medium (34-66%) -Granulation Quality [place] Red -Slough/Fibrin Yes -Necrosis Amt Small (1-33%) -Necrotic Tissue Type Adherent Slough -Structure Exposed N/A -Texture (Abi-wound Skin Appearance) Assessed -Moisture (Abi-wound Skin Appearance Assessed ) -Color (Abi-wound Skin Appearance) Assessed -Temperature (Abi-wound Skin No Abnormality Appearance) (Pt Warm) -Tenderness on Palpation (Abi-wound No Skin Appearance) -Ulcer Cleansing Rinsed/ Irrigated with Saline -Foul Odor after Cleansing No -Anesthetic Used 4% Lidocaine Solution WC - Nurse 2 - General Ulcer CM Notes Start: 07/29/17 10:29 Freq: Status: Active Protocol: Activity Type Activity Date Activity User E-Sign Co-Sign Detail Recorded Client Recorded Date Recorded By Document 07/29/17 10:54 [id number] 07/29/17 10:55 07/29/17 10:54 Wound Center Nurse 2 [Procedure/Treatment] -Time 10:55 -Correct Patient Yes -Correct Side, Site, Position Yes -Correct Procedure Yes -Procedure Performed Yes -Type of Procedure Debridement -Clinical Debridement Subcutaneous -Post Debridement Size (cm) - Length 3.6 -Post Debridement Size (cm) - Width 4 -Post Debridement Size (cm) - Depth 0.1 -Total Square Cm 14.4 -Wound/Ulcer Outcome Not Healed -Ulcer Cleansing Rinsed/ Irrigated with Saline -Foul Odor after Cleansing No -Bioengineered Tissue No -Bleeding Controlled with Pressure -Treatment Response Procedure Tolerated Well [See Physician Procedure note for Specifics] Pain Scale: 0-10 Numeric [Pain] -Is Patient Pain Free? Yes Musculoskeletal: No Tenderness to Palpation of Joints or Extremities, Muscle Wasting, - - Decreased wound manipulation pain Neurological: - - Lack of epicritic sensation light touch right Psych/Mental Status: Normal Affect, Appropriate Debridement Note Post-Debridement Measurements/Treatment WC - Nurse 2 - General Ulcer CM Notes Start: 07/29/17 10:29 Freq: Status: Active Protocol: Activity Type Activity Date Activity User E-Sign Co-Sign Detail Recorded Client Recorded Date Recorded By Document 07/29/17 10:54 MARCI [id number] 07/29/17 10:55 MARCI 07/29/17 10:54 Wound Center Nurse 2 #2 R Heel -Time 10:55 -Correct Patient Yes -Correct Side, Site, Position Yes -Correct Procedure Yes -Procedure Performed Yes -Type of Procedure Debridement -Clinical Debridement Subcutaneous -Post Debridement Size (cm) - Length 3.6 -Post Debridement Size (cm) - Width 4 -Post Debridement Size (cm) - Depth 0.1 -Total Square Cm 14.4 -Wound/Ulcer Outcome Not Healed -Ulcer Cleansing Rinsed/ Irrigated with Saline -Foul Odor after Cleansing No -Bioengineered Tissue No -Bleeding Controlled with Pressure -Treatment Response Procedure Tolerated Well Pain Scale: 0-10 Numeric Is Patient Pain Free? 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 Diabetes with peripheral neuropathy. Peripheral vascular disease. Gait impairment. Malnutrition suspected. Other comorbidities. On anticoagulation chronic use Plan: I reviewed and discussed his case. Debridement was performed in the clinical panel. Offloading measures were implemented, in particular with respect to the right heel ulceration, which appears to be pressure-related and further complicated with diabetes and lack of arterial perfusion. To continue to offload by hanging heel over a pillow to float in the air. He did get the recommended offload device; donut pillow. A prescription for Gregorio was provided and he continues to take this twice daily. A noninvasive lower extremity arterial study in which right monophasic artery was noted. The ABIs were not calculated due to noncompressibility and it looks like he has vascular disease. He saw Dr. Vincent previously who recommends monitoring the situation. He defers advanced wound care product, epi fix and further hyperbaric oxygen therapy progression at this time due to cost. Ev and gauze dressing was applied today following his debridment. The dressing is to be changed daily. All questions were answered to the patient's satisfaction. He is to return to the wound care center in 1 week or sooner if there are any questions or concerns.
[2017-08-05 15:20] VITALS: BP 126/61; PULSE 67; RESP 16; TEMP 36.6
--- NOTE | 2017-08-05 17:35 | PN.PCM_ITS ---
(1) Ulcer of right lower extremity with fat layer exposed Status: Chronic Current Visit: Yes Code(s): L97.912 - Non-pressure chronic ulcer of unspecified part of right lower leg with fat layer exposed (2) PAD (peripheral artery disease) Status: Chronic Current Visit: Yes Code(s): I73.9 - Peripheral vascular disease, unspecified (3) Type 2 diabetes mellitus with diabetic polyneuropathy Status: Chronic Current Visit: Yes Code(s): E11.42 - Type 2 diabetes mellitus with diabetic polyneuropathy (4) Malnutrition Status: Suspected Current Visit: Yes Code(s): E46 - Unspecified protein- calorie malnutrition Type of Wound Date of Service: 08/05/17 Chief Complaint: . Right heel ulcer History of Wound: This is an 81-year-old male who is a resident of [facility], [place], operated by [facility] in [place], [place]. The patient is deconditioned, and nonambulatory. He denies fever, chill, nausea, vomiting, odor, or redness. He was previously treated for deep tissue infection that was g rowing Pseudomonas and MRSA. He completed his antibiotics per infectious disease. He is with his daughter today. He continues to use a wheelchair that has elevation capabilities and he resumed donut pillow use. He has additional difficulty hearing today. He expresses concerns about a rash to his private area as well as sores to his thighs and buttocks. It is not clear if he is referring to soreness as discomfort or an open wound. He relates he has been receiving care with a special cream from the nurses at his skilled facility. Progress of Wound: Improving - Physical Exam Vital Signs Temp Pulse Resp BP 97.8 F 67 16 126/61 H 08/05/17 15:20 08/05/17 15:20 08/05/17 15:20 08/05/17 15:20 General: Alert, Oriented x3, Cooperative Extremities: No cyanosis, Capillary Refill Less than 3 Seconds, No Calf Tenderness - Negative Vera right, Diminished Peripheral Pulses, Edema - Mild Skin: Ulcer/ Wound - No purulence, no erythema, streaking, no odor, no infection. There is no longer any muscle or capsular her bone tissue exposed to the right heel. There is peripheral epithelialization and the wound bed is red beefy granular. The peripheral skin is atrophic and hairless Wound Measurements and Assessment WC - Nurse 1 - General Ulcer Measurement Start: 07/29/17 10:29 Freq: Status: Active Protocol: Activity Type Activity Date Activity User E-Sign Co-Sign Detail Recorded Client Recorded Date Recorded By Document 08/05/17 15:40 LITO [id number] 08/05/17 16:00 LITO 08/05/17 15:40 Wound Center Nurse 1 [Ulcer Assessment] #2 R Heel -Combined with other wound No -Current Size (cm) - Length 3 -Current Size (cm) - Width 3.5 -Current Size (cm) - Depth 0.1 -Total Square Cm 10.5 -Photo Taken No -Tunneling No -Undermining/Tunneling No -Circular Undermining No -Classification - Thickness Full Thickness without Exposed Support Structure -Exudate Amt Small (1-33%) -Exudate Type Serosanguineous -Wound Margin Distinct, Outline Attached -Granulation Amt Medium (34-66%) -Granulation Quality [place] -Slough/Fibrin Yes -Necrosis Amt Small (1-33%) -Necrotic Tissue Type Adherent Slough -Structure Exposed N/A -Texture (Abi-wound Skin Appearance) Assessed Callus -Moisture (Abi-wound Skin Appearance Assessed ) -Color (Abi-wound Skin Appearance) Assessed -Temperature (Abi-wound Skin No Abnormality Appearance) (Pt Warm) -Tenderness on Palpation (Abi-wound No Skin Appearance) -Ulcer Cleansing Rinsed/ Irrigated with Saline -Foul Odor after Cleansing No -Anesthetic Used 4% Lidocaine Solution MIGUEL ANGEL - Nurse 2 - General Ulcer CM Notes Start: 07/29/17 10:29 Freq: Status: Active Protocol: Activity Type Activity Date Activity User E-Sign Co-Sign Detail Recorded Client Recorded Date Recorded By Document 08/05/17 16:47 MARCI [id number] 08/05/17 16:48 08/05/17 16:47 Wound Center Nurse 2 [Procedure/Treatment] -Time 16:48 -Correct Patient Yes -Correct Side, Site, Position Yes -Correct Procedure Yes -Procedure Performed Yes -Type of Procedure Debridement -Clinical Debridement Subcutaneous -Post Debridement Size (cm) - Length 3.1 -Post Debridement Size (cm) - Width 3.5 -Post Debridement Size (cm) - Depth 0.1 -Total Square Cm 10.85 -Wound/Ulcer Outcome Not Healed -Ulcer Cleansing Rinsed/ Irrigated with Saline -Foul Odor after Cleansing No -Bioengineered Tissue No -Bleeding Controlled with Pressure -Treatment Response Procedure Tolerated Well [See Physician Procedure note for Specifics] Pain Scale: 0-10 Numeric [Pain] -Is Patient Pain Free? Yes Musculoskeletal: No Tenderness to Palpation of Joints or Extremities, Muscle Wasting, - - Discomfort with manipulation right heel Neurological: - - Lack of epicritic sensation light touch right foot Psych/Mental Status: Normal Affect, Appropriate Debridement Note Post-Debridement Measurements/Treatment WC - Nurse 2 - General Ulcer CM Notes Start: 07/29/17 10:29 Freq: Status: Active Protocol: Activity Type Activity Date Activity User E-Sign Co-Sign Detail Recorded Client Recorded Date Recorded By Document 07/29/17 10:54 [id number] 07/29/17 10:55 Document 08/05/17 16:47 [id number] 08/05/17 16:48 07/29/17 08/05/17 10:54 16:47 Wound Center Nurse 2 #2 R Heel -Time 10:55 16:48 -Correct Patient Yes Yes -Correct Side, Site, Position Yes Yes -Correct Procedure Yes Yes -Procedure Performed Yes Yes -Type of Procedure Debridement Debridement -Clinical Debridement Subcutaneous Subcutaneous -Post Debridement Size (cm) - Length 3.6 3.1 -Post Debridement Size (cm) - Width 4 3.5 -Post Debridement Size (cm) - Depth 0.1 0.1 -Total Square Cm 14.4 10.85 -Wound/Ulcer Outcome Not Healed Not Healed -Ulcer Cleansing Rinsed/ Rinsed/ Irrigated with Irrigated with Saline Saline -Foul Odor after Cleansing No No -Bioengineered Tissue No No -Bleeding Controlled with Pressure Pressure -Treatment Response Procedure Procedure Tolerated Well Tolerated Well Pain Scale: 0-10 Numeric Is Patient Pain Free? 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 Diabetes with peripheral neuropathy. Peripheral vascular disease. Gait impairment. Malnutrition suspected. Other comorbidities. On anticoagulation chronic use Plan: I reviewed and discussed his case. Debridement was performed in the clinical panel. Offloading measures were implemented, in particular with respect to the right heel ulceration, which appears to be pressure-related and further complicated with diabetes and lack of arterial perfusion. To continue to offload by hanging heel over a pillow to float in the air. He did get the recommended offload device; donut pillow. A prescription for Gregorio was provided and he continues to take this twice daily. A noninvasive lower extremity arterial study in which right monophasic artery was noted. The ABIs were not calculated due to noncompressibility and it looks like he has vascular disease. He saw Dr. Vincent previously who recommends monitoring the situation. He defers advanced wound care product, epi fix and further hyperbaric oxygen therapy progression at this time due to cost. Ev and gauze dressing was applied today following his debridment. I recommended a nursing evaluation for thigh and buttock wounds and rashes that he speaks of today. He will need to follow-up with a different wound care center provider if there are open wounds he has proximal to the tibial tuberosity wound treatment and debridement is not my current scope of practice. The dressing is to be changed daily. All questions were answered to the patient's satisfaction. He is to return to the wound care center in 1 week or sooner if there are any questions or concerns.
[2017-08-12 15:00] VITALS: BP 155/86; PULSE 64; RESP 18; TEMP 36.5
--- NOTE | 2017-08-12 16:12 | PN.PCM_ITS ---
(1) Ulcer of right lower extremity with fat layer exposed Status: Chronic Code(s): L97.912 - Non-pressure chronic ulcer of unspecified part of right lower leg with fat layer exposed (2) PAD (peripheral artery disease) Status: Chronic Code(s): I73.9 - Peripheral vascular disease, unspecified (3) Type 2 diabetes mellitus with diabetic polyneuropathy Status: Chronic Code(s): E11.42 - Type 2 diabetes mellitus with diabetic polyneuropathy (4) Malnutrition Status: Suspected Code(s): E46 - Unspecified protein-calorie malnutrition Type of Wound Date of Service: 08/16/17 Chief Complaint: . Right heel ulcer History of Wound: This is an 81-year-old male who is a resident of [facility] in [place], [place]. The patient is deconditioned, and nonambulatory. He denies fever, chill, nausea, vomiting, odor, or redness. He was previously treated for deep tissue infection that was g rowing Pseudomonas and MRSA. He completed his antibiotics per infectious disease. He is with his daughter today. He continues to use a wheelchair that has elevation capabilities and he continues donut pillow use. Progress of Wound: Improving - Physical Exam Vital Signs Temp Pulse Resp BP 97.7 F L 64 18 155/86 H 08/12/17 15:00 08/12/17 15:00 08/12/17 15:00 08/12/17 15:00 General: Alert, Oriented x3, Cooperative Extremities: No cyanosis, Capillary Refill Less than 3 Seconds, No Calf Tenderness, Diminished Peripheral Pulses, Edema - Mild Skin: Ulcer/ Wound - No purulence, erythema, streaking, no odor, no infection. The peripheral skin is atrophic. Wound bed is 100% granular with peripheral epithelialization progression Wound Measurements and Assessment WC - Nurse 1 - General Ulcer Measurement Start: 07/29/17 10:29 Freq: Status: Active Protocol: Activity Type Activity Date Activity User E-Sign Co-Sign Detail Recorded Client Recorded Date Recorded By Document 08/12/17 15:00 RB [id number] 08/12/17 15:13 RB 08/12/17 15:00 Wound Center Nurse 1 [Ulcer Assessment] #2 R Heel -Combined with other wound No -Current Size (cm) - Length 3 -Current Size (cm) - Width 3.8 -Current Size (cm) - Depth 0.1 -Total Square Cm 11.4 -Tunneling No -Undermining/Tunneling No -Circular Undermining No -Classification - Mao Grading ( Grade 3 Diabetic Ulcer) -Exudate Amt Small (1-33%) -Exudate Type Serosanguineous -Wound Margin Distinct, Outline Attached -Granulation Amt Large (67-100%) -Granulation Quality [place] Red -Slough/Fibrin Yes -Necrosis Amt Small (1-33%) -Necrotic Tissue Type Adherent Slough -Structure Exposed N/A -Texture (Abi-wound Skin Appearance) Assessed Callus -Moisture (Abi-wound Skin Appearance Assessed ) -Color (Abi-wound Skin Appearance) Assessed -Temperature (Abi-wound Skin No Abnormality Appearance) (Pt Warm) -Tenderness on Palpation (Abi-wound No Skin Appearance) -Ulcer Cleansing Rinsed/ Irrigated with Saline -Foul Odor after Cleansing No -Anesthetic Used 5% Lidocaine Gel WC - Nurse 2 - General Ulcer CM Notes Start: 07/29/17 10:29 Freq: Status: Active Protocol: Activity Type Activity Date Activity User E-Sign Co-Sign Detail Recorded Client Recorded Date Recorded By Document 08/12/17 15:45 [id number] 08/12/17 15:49 CS 08/12/17 15:45 Wound Center Nurse 2 [Procedure/Treatment] -Time 15:40 -Correct Patient Yes -Correct Side, Site, Position Yes -Correct Procedure Yes -Procedure Performed Yes -Type of Procedure Debridement -Clinical Debridement Subcutaneous -Post Debridement Size (cm) - Length 3.8 -Post Debridement Size (cm) - Width 2.9 -Post Debridement Size (cm) - Depth 0.1 -Total Square Cm 11.02 -Wound/Ulcer Outcome Not Healed -Ulcer Cleansing Not Cleansed -Foul Odor after Cleansing No -Bioengineered Tissue No -Bleeding Controlled with Pressure -Treatment Response Procedure Tolerated Well [See Physician Procedure note for Specifics] Pain Scale: 0-10 Numeric [Pain] -Is Patient Pain Free? Yes Musculoskeletal: No Tenderness to Palpation of Joints or Extremities, Muscle Wasting, Tenderness - Decreased pain with wound manipulation Neurological: - - Altered sensation light touch Psych/Mental Status: Normal Affect, Appropriate Debridement Note Post-Debridement Measurements/Treatment WC - Nurse 2 - General Ulcer CM Notes Start: 07/29/17 10:29 Freq: Status: Active Protocol: Activity Type Activity Date Activity User E-Sign Co-Sign Detail Recorded Client Recorded Date Recorded By Document 07/29/17 10:54 [id number] 07/29/17 10:55 Document 08/05/17 16:47 [id number] 08/05/17 16:48 Document 08/12/17 15:45 [id number] 08/12/17 15:49 07/29/17 08/05/17 08/12/17 10:54 16:47 15:45 Wound Center Nurse 2 #2 R Heel -Time 10:55 16:48 15:40 -Correct Patient Yes Yes Yes -Correct Side, Site, Position Yes Yes Yes -Correct Procedure Yes Yes Yes -Procedure Performed Yes Yes Yes -Type of Procedure Debridement Debridement Debridement -Clinical Debridement Subcutaneous Subcutaneous Subcutaneous -Post Debridement Size (cm) - Length 3.6 3.1 3.8 -Post Debridement Size (cm) - Width 4 3.5 2.9 -Post Debridement Size (cm) - Depth 0.1 0.1 0.1 -Total Square Cm 14.4 10.85 11.02 -Wound/Ulcer Outcome Not Healed Not Healed Not Healed -Ulcer Cleansing Rinsed/ Rinsed/ Not Cleansed Irrigated with Irrigated with Saline Saline -Foul Odor after Cleansing No No No -Bioengineered Tissue No No No -Bleeding Controlled with Pressure Pressure Pressure -Treatment Response Procedure Procedure Procedure Tolerated Well Tolerated Well Tolerated Well Pain Scale: 0-10 Numeric Is Patient Pain Free? Yes Yes Yes Wound debrided: heel Laterality: Right Wound Grade/Stage: grade 3 Type of Debridement: Excisional debridement Anesthesia Used: 5% Lidocaine Gel Depth: in the subcutaneous layer Percentage of wound debrided: 100 Instrument Used: 5mm curette Tissue Removed: fibrous, devitalized subcutaneous, biofilm, slough Severity: Fat Layer Exposed Amount of bleeding with debridement: Mild Bleeding Controlled with: Pressure Patient tolerated procedure well Assessment/Plan Assessment: grade 3 ulcer right heel with necrotic infected muscle / deep tissue. Diabetes with peripheral neuropathy. Peripheral vascular disease. Gait impairment. Malnutrition suspected. Other comorbidities. On anticoagulation chronic use Plan: I reviewed and discussed his case. Debridement was performed in the clinical panel. Offloading measures were implemented, in particular with respect to the right heel ulceration, which appears to be pressure-related and further complicated with diabetes and lack of arterial perfusion. To continue to offload by hanging heel over a pillow to float in the air. He did get the recommended offload device; donut pillow. A prescription for Gregorio was provided and he continues to take this twice daily. A noninvasive lower extremity arterial study in which right monophasic artery was noted. The ABIs were not calculated due to noncompressibility and it looks like he has vascular disease. He saw Dr. Vincent previously who recommends monitoring the situation. He defers advanced wound care product, epi fix and further hyperbaric oxygen therapy progression at this time due to cost. Ev and gauze dressing was applied today following his debridment. The dressing is to be changed daily. All questions were answered to the patient's satisfaction. He is to return to the wound care center in 1-2 week or sooner if there are any questions or concerns. The center is closed due to national holiday next Thu.
== END 2017-08-15 23:59 ==
LOC: WC 15:00
PROVIDERS: Family Provider Family Medicine; PCP Family Medicine; Visit Provider Podiatrist
DX: E11.621 Type 2 diabetes mellitus with foot ulcer (principal); L97.513 Non-pressure chronic ulcer of other part of right foot with necrosis of muscle; E11.51 Type 2 diabetes mellitus with diabetic peripheral angiopathy without gangrene; E11.42 Type 2 diabetes mellitus with diabetic polyneuropathy
CPT/HCPCS: 11042

== ENCOUNTER 2017-09-09 15:00 | Outpatient (RCR) | payer MEDICARE, MEDICAID, SELFPAY ==
[2017-08-16 00:38] VITALS: BP 155/86; PULSE 64; RESP 18; TEMP 36.5
[2017-08-26 16:07] VITALS: BP 131/68; PULSE 54; RESP 18; TEMP 35.7
--- NOTE | 2017-08-26 16:47 | PCM.WC.PN ---
(1) Ulcer of right lower extremity with fat layer exposed Status: Chronic Current Visit: Yes Code(s): L97.912 - Non-pressure chronic ulcer of unspecified part of right lower leg with fat layer exposed (2) Type 2 diabetes mellitus with diabetic polyneuropathy Status: Chronic Current Visit: Yes Code(s): E11.42 - Type 2 diabetes mellitus with diabetic polyneuropathy (3) Malnutrition Status: Suspected Current Visit: Yes Code(s): E46 - Unspecified protein-calorie malnutrition Type of Wound Date of Service: 08/27/17 Chief Complaint: . Right heel ulcer History of Wound: This is an 81-year-old male who is a resident of [facility] in [place], [place]. The patient is deconditioned, and nonambulatory. He denies fever, chill, nausea, vomiting, odor, or redness. He denies pain. He continues to wear offloading devices to both lower extremities. Progress of Wound: Improving - Physical Exam Vital Signs Temp Pulse Resp BP 96.3 F L 54 L 18 131/68 H 08/26/17 16:07 08/26/17 16:07 08/26/17 16:07 08/26/17 16:07 General: Alert, Oriented x3, Cooperative Extremities: No cyanosis, Capillary Refill Less than 3 Seconds, No Calf Tenderness - Negative Gordo and Vera sign right, Diminished Peripheral Pulses, Edema - Mild right lower extremity Skin: Ulcer/ Wound - There is no purulence, erythema, streaking, odor, infection, or exposed deep tissues, or eschar noted today. The peripheral skin is atrophic and there is peripheral epithelialization noted. The wound bed is granulating very healthy looking Wound Measurements and Assessment WC - Nurse 1 - General Ulcer Measurement Start: 08/26/17 16:07 Freq: Status: Active Protocol: Activity Type Activity Date Activity User E-Sign Co-Sign Detail Recorded Client Recorded Date Recorded By Document 08/26/17 16:07 RB [id number] 08/26/17 16:11 RB 08/26/17 16:07 Wound Center Nurse 1 [Ulcer Assessment] #2 R Heel -Combined with other wound No -Current Size (cm) - Length 2.5 -Current Size (cm) - Width 1.7 -Current Size (cm) - Depth 0.1 -Total Square Cm 4.25 -Tunneling No -Undermining/Tunneling No -Circular Undermining No -Classification - Mao Grading ( Grade 3 Diabetic Ulcer) -Exudate Amt Small (1-33%) -Exudate Type Serosanguineous -Wound Margin Thickened -Granulation Amt Medium (34-66%) -Granulation Quality Shields -Slough/Fibrin Yes -Necrosis Amt Small (1-33%) -Necrotic Tissue Type Adherent Slough -Structure Exposed N/A -Texture (Abi-wound Skin Appearance) Assessed -Moisture (Abi-wound Skin Appearance Assessed ) Dry/Scaly -Color (Abi-wound Skin Appearance) Assessed -Temperature (Abi-wound Skin No Abnormality Appearance) (Pt Warm) -Tenderness on Palpation (Abi-wound No Skin Appearance) -Ulcer Cleansing Rinsed/ Irrigated with Saline -Foul Odor after Cleansing No -Anesthetic Used 4% Lidocaine Solution WC - Nurse 2 - General Ulcer CM Notes Start: 08/26/17 16:07 Freq: Status: Active Protocol: Activity Type Activity Date Activity User E-Sign Co-Sign Detail Recorded Client Recorded Date Recorded By Document 08/26/17 16:39 [id number] 08/26/17 16:43 08/26/17 16:39 Wound Center Nurse 2 [Procedure/Treatment] -Time 16:39 -Correct Patient Yes -Correct Side, Site, Position Yes -Correct Procedure Yes -Procedure Performed Yes -Type of Procedure Debridement -Clinical Debridement Subcutaneous -Post Debridement Size (cm) - Length 2.6 -Post Debridement Size (cm) - Width 1.8 -Post Debridement Size (cm) - Depth 0.1 -Total Square Cm 4.68 -Wound/Ulcer Outcome Not Healed -Ulcer Cleansing Rinsed/ Irrigated with Saline -Foul Odor after Cleansing No -Bioengineered Tissue No -Topical Lidocaine (%) 4 -Bleeding Controlled with Pressure -Treatment Response Procedure Tolerated Well [See Physician Procedure note for Specifics] Pain Scale: 0-10 Numeric [Pain] -Is Patient Pain Free? Yes Musculoskeletal: No Tenderness to Palpation of Joints or Extremities, Muscle Wasting Neurological: - - Lack of normal epicritic sensation to touch right lower extremity Psych/Mental Status: Normal Affect, Appropriate Debridement Note Post-Debridement Measurements/Treatment WC - Nurse 2 - General Ulcer CM Notes Start: 08/26/17 16:07 Freq: Status: Active Protocol: Activity Type Activity Date Activity User E-Sign Co-Sign Detail Recorded Client Recorded Date Recorded By Document 08/26/17 16:39 [id number] 08/26/17 16:43 TM 08/26/17 16:39 Wound Center Nurse 2 #2 R Heel -Time 16:39 -Correct Patient Yes -Correct Side, Site, Position Yes -Correct Procedure Yes -Procedure Performed Yes -Type of Procedure Debridement -Clinical Debridement Subcutaneous -Post Debridement Size (cm) - Length 2.6 -Post Debridement Size (cm) - Width 1.8 -Post Debridement Size (cm) - Depth 0.1 -Total Square Cm 4.68 -Wound/Ulcer Outcome Not Healed -Ulcer Cleansing Rinsed/ Irrigated with Saline -Foul Odor after Cleansing No -Bioengineered Tissue No -Topical Lidocaine (%) 4 -Bleeding Controlled with Pressure -Treatment Response Procedure Tolerated Well Pain Scale: 0-10 Numeric Is Patient Pain Free? Yes Wound debrided: heel Laterality: Right Wound Grade/Stage: grade 3 Type of Debridement: Excisional debridement Anesthesia Used: 5% Lidocaine Gel Depth: in the subcutaneous layer Percentage of wound debrided: 100 Instrument Used: #15 blade Tissue Removed: fibrous, devitalized subcutaneous, biofilm, slough Severity: Fat Layer Exposed Amount of bleeding with debridement: Mild Bleeding Controlled with: Pressure Patient tolerated procedure well Assessment/Plan Active Problems Ulcer of right lower extremity with fat layer exposed (Chronic) Type 2 diabetes mellitus with diabetic polyneuropathy (Chronic) Assessment: grade 3 ulcer right heel. Diabetes with peripheral neuropathy. Peripheral vascular disease. Gait impairment. Malnutrition suspected. Other comorbidities. On anticoagulation chronic use Plan: I reviewed and discussed his case. Debridement was performed in the clinical panel. Offloading measures were implemented, in particular with respect to the right heel ulceration, which appears to be pressure-related and further complicated with diabetes and lack of arterial perfusion. To continue to offload by hanging heel over a pillow to float in the air. He did get the recommended offload device; donut pillow. A prescription for Gregorio was provided and he continues to take this twice daily. A noninvasive lower extremity arterial study in which right monophasic artery was noted. The ABIs were not calculated due to noncompressibility and it looks like he has vascular disease. He saw Dr. Vincent previously who recommends monitoring the situation. He defers advanced wound care product, epi fix and further hyperbaric oxygen therapy progression at this time due to cost. Ev and gauze dressing was applied today following his debridment. . The dressing is to be changed daily. All questions were answered to the patient's satisfaction. He is to return to the wound care center in 1 week or sooner if there are any questions or concerns.
[2017-09-02 14:38] VITALS: BP 120/74; PULSE 59; RESP 16; TEMP 36.7
--- NOTE | 2017-09-02 20:35 | PN.PCM_ITS ---
(1) Ulcer of right lower extremity with fat layer exposed Status: Chronic Current Visit: Yes Code(s): L97.912 - Non-pressure chronic ulcer of unspecified part of right lower leg with fat layer exposed (2) Type 2 diabetes mellitus with diabetic polyneuropathy Status: Chronic Current Visit: Yes Code(s): E11.42 - Type 2 diabetes mellitus with diabetic polyneuropathy (3) Malnutrition Status: Chronic Current Visit: Yes Code(s): E46 - Unspecified protein- calorie malnutrition Type of Wound Date of Service: 09/03/17 Chief Complaint: . Right heel ulcer History of Wound: This is an 81-year-old male who is a resident of [facility] in [place], [place]. The patient is deconditioned, and nonambulatory. He denies fever, chill, nausea, vomiting, odor, or redness. He denies pain. He continues to wear offloading devices to both lower extremities. Progress of Wound: Improving - Physical Exam Vital Signs Temp Pulse Resp BP 98.0 F 59 L 16 120/74 09/02/17 14:38 09/02/17 14:38 09/02/17 14:38 09/02/17 14:38 General: Alert, Oriented x3, Cooperative Extremities: No cyanosis, No edema, Capillary Refill Less than 3 Seconds, No Calf Tenderness, Diminished Peripheral Pulses Skin: Ulcer/ Wound - nopurulence, no infection, no erythema, no streaking, on odor, right. atrophic skin. continued peripheral wound epithelialization noted Wound Measurements and Assessment WC - Nurse 1 - General Ulcer Measurement Start: 08/26/17 16:07 Freq: Status: Active Protocol: Activity Type Activity Date Activity User E-Sign Co-Sign Detail Recorded Client Recorded Date Recorded By Document 09/02/17 14:38 [id number] 09/02/17 14:40 09/02/17 14:38 Wound Center Nurse 1 [Ulcer Assessment] #2 R Heel -Combined with other wound No -Current Size (cm) - Length 2.8 -Current Size (cm) - Width 1.6 -Current Size (cm) - Depth 0.2 -Total Square Cm 4.48 -Date of Last Picture (Recall this 09/02/17 field) -Photo Taken Yes -Epithelialization None Present -Tunneling No -Undermining/Tunneling No -Circular Undermining No -Exudate Amt Medium (34-66%) -Exudate Type Serosanguineous -Wound Margin Distinct, Outline Attached -Granulation Amt Medium (34-66%) -Granulation Quality Red -Slough/Fibrin Yes -Necrosis Amt None Present (0 %) -Necrotic Tissue Type Adherent Slough -Structure Exposed None/Limited to Skin Breakdown -Texture (Abi-wound Skin Appearance) No Abnormality Assessed -Moisture (Abi-wound Skin Appearance No Abnormality ) Assessed -Color (Abi-wound Skin Appearance) No Abnormality Assessed -Temperature (Abi-wound Skin No Abnormality Appearance) (Pt Warm) -Tenderness on Palpation (Abi-wound Yes Skin Appearance) -Ulcer Cleansing Rinsed/ Irrigated with Saline -Foul Odor after Cleansing No -Anesthetic Used 4% Lidocaine Solution [Edema Assessment] -Lower Limb Edema Present NA - Nurse 2 - General Ulcer CM Notes Start: 08/26/17 16:07 Freq: Status: Active Protocol: Activity Type Activity Date Activity User E-Sign Co-Sign Detail Recorded Client Recorded Date Recorded By Document 09/02/17 15:03 [id number] 09/02/17 15:05 09/02/17 15:03 Wound Center Nurse 2 [Procedure/Treatment] #2 R Heel -Time 15:03 -Correct Patient Yes -Correct Side, Site, Position Yes -Correct Procedure Yes -Procedure Performed Yes -Type of Procedure Debridement -Clinical Debridement Subcutaneous -Post Debridement Size (cm) - Length 2.9 -Post Debridement Size (cm) - Width 1.6 -Post Debridement Size (cm) - Depth 0.2 -Total Square Cm 4.64 -Wound/Ulcer Outcome Not Healed -Ulcer Cleansing Rinsed/ Irrigated with Saline -Foul Odor after Cleansing No -Bioengineered Tissue No -Topical Lidocaine (%) 4 -Bleeding Controlled with Pressure -Treatment Response Procedure Tolerated Well [See Physician Procedure note for Specifics] Pain Scale: 0-10 Numeric [Pain] -Is Patient Pain Free? Yes Musculoskeletal: No Tenderness to Palpation of Joints or Extremities, Muscle Wasting, - - compartment lower extremity soft, right Neurological: - - lack of epicritic sensation via touch right foot Psych/Mental Status: Normal Affect, Appropriate Debridement Note Post-Debridement Measurements/Treatment - Nurse 2 - General Ulcer CM Notes Start: 08/26/17 16:07 Freq: Status: Active Protocol: Activity Type Activity Date Activity User E-Sign Co-Sign Detail Recorded Client Recorded Date Recorded By Document 08/26/17 16:39 TM [id number] 08/26/17 16:43 TM Document 09/02/17 15:03 TM [id number] 09/02/17 15:05 TM 08/26/17 09/02/17 16:39 15:03 Wound Center Nurse 2 #2 R Heel -Time 16:39 15:03 -Correct Patient Yes Yes -Correct Side, Site, Position Yes Yes -Correct Procedure Yes Yes -Procedure Performed Yes Yes -Type of Procedure Debridement Debridement -Clinical Debridement Subcutaneous Subcutaneous -Post Debridement Size (cm) - Length 2.6 2.9 -Post Debridement Size (cm) - Width 1.8 1.6 -Post Debridement Size (cm) - Depth 0.1 0.2 -Total Square Cm 4.68 4.64 -Wound/Ulcer Outcome Not Healed Not Healed -Ulcer Cleansing Rinsed/ Rinsed/ Irrigated with Irrigated with Saline Saline -Foul Odor after Cleansing No No -Bioengineered Tissue No No -Topical Lidocaine (%) 4 4 -Bleeding Controlled with Pressure Pressure -Treatment Response Procedure Procedure Tolerated Well Tolerated Well Pain Scale: 0-10 Numeric Is Patient Pain Free? Yes Yes Wound debrided: heel Laterality: Right Wound Grade/Stage: grade 3 Type of Debridement: Excisional debridement Anesthesia Used: 5% Lidocaine Gel Depth: in the subcutaneous layer Percentage of wound debrided: 100 Instrument Used: #15 blade Tissue Removed: devitalized subcutaneous, biofilm, slough, fibrous Severity: Fat Layer Exposed Amount of bleeding with debridement: Mild Bleeding Controlled with: Pressure Patient tolerated procedure well Assessment/Plan Active Problems Ulcer of right lower extremity with fat layer exposed (Chronic) Type 2 diabetes mellitus with diabetic polyneuropathy (Chronic) Malnutrition (Chronic) Assessment: grade 3 ulcer right heel. Diabetes with peripheral neuropathy. Peripheral vascular disease. Gait impairment. Malnutrition suspected. Other comorbidities. On anticoagulation chronic use Plan: I reviewed and discussed his case. Debridement was performed in the clinical panel. Offloading measures were implemented, in particular with respect to the right heel ulceration, which appears to be pressure-related and further complicated with diabetes and lack of arterial perfusion. To continue to offload by hanging heel over a pillow to float in the air. He did get the recommended offload device; donut pillow. A prescription for Gregorio was provided and he continues to take this twice daily. A noninvasive lower extremity arterial study in which right monophasic artery was noted. The ABIs were not calculated due to noncompressibility and it looks like he has vascular disease. He saw Dr. Vincent previously who recommends monitoring the situation. He defers advanced wound care product, epi fix and further hyperbaric oxygen therapy progression at this time due to cost. Ev and gauze dressing was applied today following his debridment. . The dressing is to be changed daily. All questions were answered to the patient's satisfaction. He is to return to the wound care center in 1 week or sooner if there are any questions or concerns.
[2017-09-09 15:04] VITALS: BP 126/54; PULSE 57; RESP 16; TEMP 36.2
--- NOTE | 2017-09-09 16:39 | PCM.WC.PN ---
(1) Ulcer of right lower extremity with fat layer exposed Status: Chronic Current Visit: Yes Code(s): L97.912 - Non-pressure chronic ulcer of unspecified part of right lower leg with fat layer exposed (2) Type 2 diabetes mellitus with diabetic polyneuropathy Status: Chronic Current Visit: Yes Code(s): E11.42 - Type 2 diabetes mellitus with diabetic polyneuropathy (3) Malnutrition Status: Chronic Current Visit: Yes Code(s): E46 - Unspecified protein-calorie malnutrition Type of Wound Date of Service: 09/09/17 Chief Complaint: . Right heel ulcer History of Wound: This is an 82-year-old male who is a resident of [facility] in [place], [place]. The patient is deconditioned, and nonambulatory. He denies fever, chill, nausea, vomiting, odor, or redness. He denies pain. He continues to wear offloading devices to both lower extremities. His pain is controlled with regular Tylenol on an as-needed basis. Progress of Wound: Improving - Physical Exam Vital Signs Temp Pulse Resp BP 97.1 F L 57 L 16 126/54 H 09/09/17 15:04 09/09/17 15:04 09/09/17 15:04 09/09/17 15:04 General: Alert, Oriented x3, Cooperative Extremities: No cyanosis, Capillary Refill Less than 3 Seconds, No Calf Tenderness - Negative Gordo and Vera sign right lower extremity, Diminished Peripheral Pulses, Edema - Mild Skin: Ulcer/ Wound - No purulence, no erythema, streaking, odor, no infection. There is significant continued peripheral epithelialization and the base is granular very healthy. The peripheral skin is atrophic and without hair. There is no maceration. Wound Measurements and Assessment WC - Nurse 1 - General Ulcer Measurement Start: 08/26/17 16:07 Freq: Status: Active Protocol: Activity Type Activity Date Activity User E-Sign Co-Sign Detail Recorded Client Recorded Date Recorded By Document 09/09/17 15:04 ID [id number] 09/09/17 15:09 ID 09/09/17 15:04 Wound Center Nurse 1 [Ulcer Assessment] #2 R Heel -Combined with other wound No -Current Size (cm) - Length 2.3 -Current Size (cm) - Width 1.7 -Current Size (cm) - Depth 0.1 -Total Square Cm 3.91 -Photo Taken No -Tunneling No -Undermining/Tunneling No -Exudate Amt Small (1-33%) -Exudate Type Yellow/Green -Wound Margin Flat & Intact -Granulation Amt Large (67-100%) -Granulation Quality Red -Slough/Fibrin Yes -Necrosis Amt Small (1-33%) -Necrotic Tissue Type Adherent Slough -Structure Exposed N/A -Texture (Abi-wound Skin Appearance) Assessed -Moisture (Abi-wound Skin Appearance Assessed ) -Color (Abi-wound Skin Appearance) Assessed -Temperature (Abi-wound Skin No Abnormality Appearance) (Pt Warm) -Tenderness on Palpation (Abi-wound No Skin Appearance) -Ulcer Cleansing Rinsed/ Irrigated with Saline -Foul Odor after Cleansing No -Anesthetic Used 4% Lidocaine Solution [Edema Assessment] -Lower Limb Edema Present Yes -Right Calf (cm) 28.5 -Right Ankle (cm) 19.4 WC - Nurse 2 - General Ulcer CM Notes Start: 08/26/17 16:07 Freq: Status: Active Protocol: Activity Type Activity Date Activity User E-Sign Co-Sign Detail Recorded Client Recorded Date Recorded By Document 09/09/17 15:37 [id number] 09/09/17 15:38 09/09/17 15:37 Wound Center Nurse 2 [Procedure/Treatment] #2 R Heel -Time 15:37 -Correct Patient Yes -Correct Side, Site, Position Yes -Correct Procedure Yes -Procedure Performed Yes -Type of Procedure Debridement -Clinical Debridement Subcutaneous -Post Debridement Size (cm) - Length 2.4 -Post Debridement Size (cm) - Width 1.8 -Post Debridement Size (cm) - Depth 0.1 -Total Square Cm 4.32 -Wound/Ulcer Outcome Not Healed -Ulcer Cleansing Rinsed/ Irrigated with Saline -Foul Odor after Cleansing No -Bioengineered Tissue No -Topical Lidocaine (%) 4 -Bleeding Controlled with Pressure -Treatment Response Procedure Tolerated Well [See Physician Procedure note for Specifics] Pain Scale: 0-10 Numeric [Pain] -Is Patient Pain Free? Yes Musculoskeletal: No Tenderness to Palpation of Joints or Extremities, Muscle Wasting, - - Scant pain with wound debridement manipulation Neurological: Sensory exam intact to light touch and pain Psych/Mental Status: Normal Affect, Appropriate Debridement Note Post-Debridement Measurements/Treatment WC - Nurse 2 - General Ulcer CM Notes Start: 08/26/17 16:07 Freq: Status: Active Protocol: Activity Type Activity Date Activity User E-Sign Co-Sign Detail Recorded Client Recorded Date Recorded By Document 08/26/17 16:39 [id number] 08/26/17 16:43 TM Document 09/02/17 15:03 TM [id number] 09/02/17 15:05 TM Document 09/09/17 15:37 TM [id number] 09/09/17 15:38 TM 08/26/17 09/02/17 09/09/17 16:39 15:03 15:37 Wound Center Nurse 2 #2 R Heel -Time 16:39 15:03 15:37 -Correct Patient Yes Yes Yes -Correct Side, Site, Position Yes Yes Yes -Correct Procedure Yes Yes Yes -Procedure Performed Yes Yes Yes -Type of Procedure Debridement Debridement Debridement -Clinical Debridement Subcutaneous Subcutaneous Subcutaneous -Post Debridement Size (cm) - Length 2.6 2.9 2.4 -Post Debridement Size (cm) - Width 1.8 1.6 1.8 -Post Debridement Size (cm) - Depth 0.1 0.2 0.1 -Total Square Cm 4.68 4.64 4.32 -Wound/Ulcer Outcome Not Healed Not Healed Not Healed -Ulcer Cleansing Rinsed/ Rinsed/ Rinsed/ Irrigated with Irrigated with Irrigated with Saline Saline Saline -Foul Odor after Cleansing No No No -Bioengineered Tissue No No No -Topical Lidocaine (%) 4 4 4 -Bleeding Controlled with Pressure Pressure Pressure -Treatment Response Procedure Procedure Procedure Tolerated Well Tolerated Well Tolerated Well Pain Scale: 0-10 Numeric Is Patient Pain Free? Yes Yes Yes Wound debrided: heel Laterality: Right Wound Grade/Stage: grade 3 Type of Debridement: Excisional debridement Anesthesia Used: 4% Lidocaine Solution Depth: in the subcutaneous layer Percentage of wound debrided: 100 Instrument Used: #15 blade Tissue Removed: fibrous, devitalized subcutaneous, biofilm, slough Severity: Fat Layer Exposed Amount of bleeding with debridement: Mild Bleeding Controlled with: Pressure Patient tolerated procedure well Assessment/Plan Active Problems Ulcer of right lower extremity with fat layer exposed (Chronic) Type 2 diabetes mellitus with diabetic polyneuropathy (Chronic) Malnutrition (Chronic) Assessment: grade 3 ulcer right heel. Diabetes with peripheral neuropathy. Peripheral vascular disease. Gait impairment. Malnutrition suspected. Other comorbidities. On anticoagulation chronic use Plan: I reviewed and discussed his case. Debridement was performed in the clinical panel. Offloading measures were implemented, in particular with respect to the right heel ulceration, which appears to be pressure-related and further complicated with diabetes and lack of arterial perfusion. To continue to offload by hanging heel over a pillow to float in the air. He did get the recommended offload device; donut pillow. A prescription for Gregorio was provided and he continues to take this twice daily. A noninvasive lower extremity arterial study in which right monophasic artery was noted. The ABIs were not calculated due to noncompressibility and it looks like he has vascular disease. He saw Dr. Vincent previously who recommends monitoring the situation. He defers advanced wound care product, epi fix and further hyperbaric oxygen therapy progression at this time due to cost. Ev and gauze dressing was applied today following his debridment. . The dressing is to be changed daily. All questions were answered to the patient's satisfaction. He is to return to the wound care center in 1 week or sooner if there are any questions or concerns.
--- NOTE | 2017-09-09 16:42 | PN.PCM_ITS ---
(1) Ulcer of right lower extremity with fat layer exposed Status: Chronic Current Visit: Yes Code(s): L97.912 - Non-pressure chronic ulcer of unspecified part of right lower leg with fat layer exposed (2) Type 2 diabetes mellitus with diabetic polyneuropathy Status: Chronic Current Visit: Yes Code(s): E11.42 - Type 2 diabetes mellitus with diabetic polyneuropathy (3) Malnutrition Status: Chronic Current Visit: Yes Code(s): E46 - Unspecified protein- calorie malnutrition Type of Wound Date of Service: 09/09/17 Chief Complaint: . Right heel ulcer History of Wound: This is an 82-year-old male who is a resident of [facility] in [place], [place]. The patient is deconditioned, and nonambulatory. He denies fever, chill, nausea, vomiting, odor, or redness. He denies pain. He continues to wear offloading devices to both lower extremities. His pain is controlled with regular Tylenol on an as-needed basis. Progress of Wound: Improving - Physical Exam Vital Signs Temp Pulse Resp BP 97.1 F L 57 L 16 126/54 H 09/09/17 15:04 09/09/17 15:04 09/09/17 15:04 09/09/17 15:04 General: Alert, Oriented x3, Cooperative Extremities: No cyanosis, Capillary Refill Less than 3 Seconds, No Calf Tenderness - Negative Gordo and Vera sign right lower extremity, Diminished Peripheral Pulses, Edema - Mild Skin: Ulcer/ Wound - No purulence, no erythema, streaking, odor, no infection. There is significant continued peripheral epithelialization and the base is granular very healthy. The peripheral skin is atrophic and without hair. There is no maceration. Wound Measurements and Assessment WC - Nurse 1 - General Ulcer Measurement Start: 08/26/17 16:07 Freq: Status: Active Protocol: Activity Type Activity Date Activity User E-Sign Co-Sign Detail Recorded Client Recorded Date Recorded By Document 09/09/17 15:04 CT [id number] 09/09/17 15:09 CT 09/09/17 15:04 Wound Center Nurse 1 [Ulcer Assessment] #2 R Heel -Combined with other wound No -Current Size (cm) - Length 2.3 -Current Size (cm) - Width 1.7 -Current Size (cm) - Depth 0.1 -Total Square Cm 3.91 -Photo Taken No -Tunneling No -Undermining/Tunneling No -Exudate Amt Small (1-33%) -Exudate Type Yellow/Green -Wound Margin Flat & Intact -Granulation Amt Large (67-100%) -Granulation Quality Red -Slough/Fibrin Yes -Necrosis Amt Small (1-33%) -Necrotic Tissue Type Adherent Slough -Structure Exposed N/A -Texture (Abi-wound Skin Appearance) Assessed -Moisture (Abi-wound Skin Appearance Assessed ) -Color (Abi-wound Skin Appearance) Assessed -Temperature (Abi-wound Skin No Abnormality Appearance) (Pt Warm) -Tenderness on Palpation (Abi-wound No Skin Appearance) -Ulcer Cleansing Rinsed/ Irrigated with Saline -Foul Odor after Cleansing No -Anesthetic Used 4% Lidocaine Solution [Edema Assessment] -Lower Limb Edema Present Yes -Right Calf (cm) 28.5 -Right Ankle (cm) 19.4 WC - Nurse 2 - General Ulcer CM Notes Start: 08/26/17 16:07 Freq: Status: Active Protocol: Activity Type Activity Date Activity User E-Sign Co-Sign Detail Recorded Client Recorded Date Recorded By Document 09/09/17 15:37 [id number] 09/09/17 15:38 09/09/17 15:37 Wound Center Nurse 2 [Procedure/Treatment] #2 R Heel -Time 15:37 -Correct Patient Yes -Correct Side, Site, Position Yes -Correct Procedure Yes -Procedure Performed Yes -Type of Procedure Debridement -Clinical Debridement Subcutaneous -Post Debridement Size (cm) - Length 2.4 -Post Debridement Size (cm) - Width 1.8 -Post Debridement Size (cm) - Depth 0.1 -Total Square Cm 4.32 -Wound/Ulcer Outcome Not Healed -Ulcer Cleansing Rinsed/ Irrigated with Saline -Foul Odor after Cleansing No -Bioengineered Tissue No -Topical Lidocaine (%) 4 -Bleeding Controlled with Pressure -Treatment Response Procedure Tolerated Well [See Physician Procedure note for Specifics] Pain Scale: 0-10 Numeric [Pain] -Is Patient Pain Free? Yes Musculoskeletal: No Tenderness to Palpation of Joints or Extremities, Muscle Wasting, - - Scant pain with wound debridement manipulation Neurological: Sensory exam intact to light touch and pain Psych/Mental Status: Normal Affect, Appropriate Debridement Note Post-Debridement Measurements/Treatment WC - Nurse 2 - General Ulcer CM Notes Start: 08/26/17 16:07 Freq: Status: Active Protocol: Activity Type Activity Date Activity User E-Sign Co-Sign Detail Recorded Client Recorded Date Recorded By Document 08/26/17 16:39 [id number] 08/26/17 16:43 TM Document 09/02/17 15:03 TM [id number] 09/02/17 15:05 TM Document 09/09/17 15:37 TM [id number] 09/09/17 15:38 TM 08/26/17 09/02/17 09/09/17 16:39 15:03 15:37 Wound Center Nurse 2 #2 R Heel -Time 16:39 15:03 15:37 -Correct Patient Yes Yes Yes -Correct Side, Site, Position Yes Yes Yes -Correct Procedure Yes Yes Yes -Procedure Performed Yes Yes Yes -Type of Procedure Debridement Debridement Debridement -Clinical Debridement Subcutaneous Subcutaneous Subcutaneous -Post Debridement Size (cm) - Length 2.6 2.9 2.4 -Post Debridement Size (cm) - Width 1.8 1.6 1.8 -Post Debridement Size (cm) - Depth 0.1 0.2 0.1 -Total Square Cm 4.68 4.64 4.32 -Wound/Ulcer Outcome Not Healed Not Healed Not Healed -Ulcer Cleansing Rinsed/ Rinsed/ Rinsed/ Irrigated with Irrigated with Irrigated with Saline Saline Saline -Foul Odor after Cleansing No No No -Bioengineered Tissue No No No -Topical Lidocaine (%) 4 4 4 -Bleeding Controlled with Pressure Pressure Pressure -Treatment Response Procedure Procedure Procedure Tolerated Well Tolerated Well Tolerated Well Pain Scale: 0-10 Numeric Is Patient Pain Free? Yes Yes Yes Wound debrided: heel Laterality: Right Wound Grade/Stage: grade 3 Type of Debridement: Excisional debridement Anesthesia Used: 4% Lidocaine Solution Depth: in the subcutaneous layer Percentage of wound debrided: 100 Instrument Used: #15 blade Tissue Removed: fibrous, devitalized subcutaneous, biofilm, slough Severity: Fat Layer Exposed Amount of bleeding with debridement: Mild Bleeding Controlled with: Pressure Patient tolerated procedure well Assessment/Plan Active Problems Ulcer of right lower extremity with fat layer exposed (Chronic) Type 2 diabetes mellitus with diabetic polyneuropathy (Chronic) Malnutrition (Chronic) Assessment: grade 3 ulcer right heel. Diabetes with peripheral neuropathy. Peripheral vascular disease. Gait impairment. Malnutrition suspected. Other comorbidities. On anticoagulation chronic use Plan: I reviewed and discussed his case. Debridement was performed in the clinical panel. Offloading measures were implemented, in particular with respect to the right heel ulceration, which appears to be pressure-related and further complicated with diabetes and lack of arterial perfusion. To continue to offload by hanging heel over a pillow to float in the air. He did get the recommended offload device; donut pillow. A prescription for Gregorio was provided and he continues to take this twice daily. A noninvasive lower extremity arterial study in which right monophasic artery was noted. The ABIs were not calculated due to noncompressibility and it looks like he has vascular disease. He saw Dr. Vincent previously who recommends monitoring the situation. He defers advanced wound care product, epi fix and further hyperbaric oxygen therapy progression at this time due to cost. Ev and gauze dressing was applied today following his debridment. . The dressing is to be changed daily. All questions were answered to the patient's satisfaction. He is to return to the wound care center in 1 week or sooner if there are any questions or concerns.
== END 2017-09-15 23:59 ==
LOC: WC 15:00
PROVIDERS: Family Provider Family Medicine; PCP Family Medicine; Visit Provider Podiatrist
DX: E11.621 Type 2 diabetes mellitus with foot ulcer (principal); E11.42 Type 2 diabetes mellitus with diabetic polyneuropathy; L97.412 Non-pressure chronic ulcer of right heel and midfoot with fat layer exposed; E11.51 Type 2 diabetes mellitus with diabetic peripheral angiopathy without gangrene
CPT/HCPCS: 11042

== ENCOUNTER 2017-10-14 10:00 | Outpatient (RCR) | payer MEDICARE, SELFPAY ==
[2017-09-16 00:40] VITALS: BP 126/54; PULSE 57; RESP 16; TEMP 36.2
[2017-09-16 09:37] VITALS: BP 140/70; PULSE 54; RESP 18; TEMP 36
--- NOTE | 2017-09-16 11:40 | PCM.WC.PN ---
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 Right heel ulcer History of Wound: This is an 82-year-old male who is a resident of [facility] in [place], [place]. The patient is deconditioned, and nonambulatory. He denies fever, chill, nausea, vomiting, odor, or redness. He denies pain. He continues to wear offloading devices to both lower extremities. His pain is significantly reduced. Progress of Wound: Improving - Physical Exam Vital Signs Temp Pulse Resp BP 96.8 F L 54 L 18 140/70 H 09/16/17 09:37 09/16/17 09:37 09/16/17 09:37 09/16/17 09:37 General: Alert, Oriented x3, Cooperative Extremities: No cyanosis, Capillary Refill Less than 3 Seconds, No Calf Tenderness, Diminished Peripheral Pulses, Edema - Mild Skin: Ulcer/ Wound - No purulence, no erythema or congestion, no odor, no acute infection. Peripheral skin is atrophic Wound Measurements and Assessment WC - Nurse 1 - General Ulcer Measurement Start: 09/16/17 09:37 Freq: Status: Active Protocol: Activity Type Activity Date Activity User E-Sign Co-Sign Detail Recorded Client Recorded Date Recorded By Document 09/16/17 09:37 DL [id number] 09/16/17 09:47 DL 09/16/17 09:37 Wound Center Nurse 1 [Ulcer Assessment] #2 R Heel -Current Size (cm) - Length 0.8 -Current Size (cm) - Width 2.8 -Current Size (cm) - Depth 0.1 -Total Square Cm 2.24 -Photo Taken No -Exudate Amt Small (1-33%) -Exudate Type Sanguineous -Wound Margin Indistinct, Non -Visible -Granulation Amt Large (67-100%) -Granulation Quality Red -Necrosis Amt Small (1-33%) -Necrotic Tissue Type Adherent Slough -Structure Exposed N/A -Texture (Abi-wound Skin Appearance) Scarring -Moisture (Abi-wound Skin Appearance No Abnormality ) -Color (Abi-wound Skin Appearance) No Abnormality -Temperature (Abi-wound Skin No Abnormality Appearance) (Pt Warm) -Ulcer Cleansing Rinsed/ Irrigated with Saline -Foul Odor after Cleansing No -Anesthetic Used 4% Lidocaine Solution [Edema Assessment] -Right Calf (cm) 28 -Right Ankle (cm) 19 - Nurse 2 - General Ulcer CM Notes Start: 09/16/17 09:37 Freq: Status: Active Protocol: Activity Type Activity Date Activity User E-Sign Co-Sign Detail Recorded Client Recorded Date Recorded By Document 09/16/17 09:59 TM [id number] 09/16/17 10:00 TM 09/16/17 09:59 Wound Center Nurse 2 [Procedure/Treatment] #2 R Heel -Time 09:59 -Correct Patient Yes -Correct Side, Site, Position Yes -Correct Procedure Yes -Procedure Performed Yes -Type of Procedure Debridement -Clinical Debridement Subcutaneous -Post Debridement Size (cm) - Length 0.9 -Post Debridement Size (cm) - Width 2.9 -Post Debridement Size (cm) - Depth 0.1 -Total Square Cm 2.61 -Wound/Ulcer Outcome Not Healed -Ulcer Cleansing Rinsed/ Irrigated with Saline -Foul Odor after Cleansing No -Bioengineered Tissue No -Topical Lidocaine (%) 4 -Bleeding Controlled with Pressure -Treatment Response Procedure Tolerated Well [See Physician Procedure note for Specifics] Pain Scale: 0-10 Numeric [Pain] -Is Patient Pain Free? Yes Musculoskeletal: No Tenderness to Palpation of Joints or Extremities, Muscle Wasting, - - Wheelchair noted Neurological: - - Lack of sensation to heel right Psych/Mental Status: Normal Affect, Appropriate Debridement Note Post-Debridement Measurements/Treatment - Nurse 2 - General Ulcer CM Notes Start: 09/16/17 09:37 Freq: Status: Active Protocol: Activity Type Activity Date Activity User E-Sign Co-Sign Detail Recorded Client Recorded Date Recorded By Document 09/16/17 09:59 TM [id number] 09/16/17 10:00 TM 09/16/17 09:59 Wound Center Nurse 2 #2 R Heel -Time 09:59 -Correct Patient Yes -Correct Side, Site, Position Yes -Correct Procedure Yes -Procedure Performed Yes -Type of Procedure Debridement -Clinical Debridement Subcutaneous -Post Debridement Size (cm) - Length 0.9 -Post Debridement Size (cm) - Width 2.9 -Post Debridement Size (cm) - Depth 0.1 -Total Square Cm 2.61 -Wound/Ulcer Outcome Not Healed -Ulcer Cleansing Rinsed/ Irrigated with Saline -Foul Odor after Cleansing No -Bioengineered Tissue No -Topical Lidocaine (%) 4 -Bleeding Controlled with Pressure -Treatment Response Procedure Tolerated Well Pain Scale: 0-10 Numeric Is Patient Pain Free? 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 Diabetes with peripheral neuropathy. Peripheral vascular disease. Gait impairment. Malnutrition suspected. Other comorbidities. On anticoagulation chronic use Plan: I reviewed and discussed his case. Debridement was performed in the clinical panel. Offloading measures were implemented, in particular with respect to the right heel ulceration, which appears to be pressure-related and further complicated with diabetes and lack of arterial perfusion. To continue to offload by hanging heel over a pillow to float in the air. He did get the recommended offload device; donut pillow. A prescription for Gregorio was provided and he continues to take this twice daily. A noninvasive lower extremity arterial study in which right monophasic artery was noted. The ABIs were not calculated due to noncompressibility and it looks like he has vascular disease. He saw Dr. Vincent previously who recommends monitoring the situation. He defers advanced wound care product, epi fix and further hyperbaric oxygen therapy progression at this time due to cost. Ev and gauze dressing was applied today following his debridment. . The dressing is to be changed daily. All questions were answered to the patient's satisfaction. He is to return to the wound care center in 1 week or sooner if there are any questions or concerns.
[2017-09-23 09:44] VITALS: BP 115/55; PULSE 52; RESP 16; TEMP 36.3
--- NOTE | 2017-09-23 16:13 | PCM.WC.PN ---
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 Right heel ulcer History of Wound: This is an 82-year-old male who is a resident of [facility] in [place], [place]. The patient is deconditioned, and nonambulatory. He denies fever, chill, nausea, vomiting, odor, or redness. He denies pain. He continues to wear offloading devices to both lower extremities. His pain is significantly reduced. Progress of Wound: Improving - Physical Exam Vital Signs Temp Pulse Resp BP 97.3 F L 52 L 16 115/55 L 09/23/17 09:44 09/23/17 09:44 09/23/17 09:44 09/23/17 09:44 General: Alert, Oriented x3, Cooperative HEENT: Atraumatic Extremities: No cyanosis, Capillary Refill Less than 3 Seconds, No Calf Tenderness - Negative Gordo and Vera right, Diminished Peripheral Pulses, Edema - Scant Skin: Ulcer/ Wound - No purulence, no erythema, streaking, odor, no infection. The peripheral skin is atrophic and hairless Wound Measurements and Assessment WC - Nurse 1 - General Ulcer Measurement Start: 09/16/17 09:37 Freq: Status: Active Protocol: Activity Type Activity Date Activity User E-Sign Co-Sign Detail Recorded Client Recorded Date Recorded By Document 09/23/17 09:44 DL [id number] 09/23/17 09:47 DL 09/23/17 09:44 Wound Center Nurse 1 [Ulcer Assessment] #2 R Heel -Current Size (cm) - Length 1.2 -Current Size (cm) - Width 1.5 -Current Size (cm) - Depth 0.1 -Total Square Cm 1.80 -Photo Taken No -Exudate Amt Small (1-33%) -Exudate Type Serosanguineous -Wound Margin Distinct, Outline Attached -Granulation Amt Large (67-100%) -Granulation Quality Red -Slough/Fibrin Yes -Necrosis Amt Small (1-33%) -Necrotic Tissue Type Adherent Slough -Structure Exposed Fat Layer Exposed -Texture (Abi-wound Skin Appearance) Scarring -Moisture (Abi-wound Skin Appearance No Abnormality ) -Color (Abi-wound Skin Appearance) No Abnormality -Temperature (Abi-wound Skin No Abnormality Appearance) (Pt Warm) -Tenderness on Palpation (Abi-wound No Skin Appearance) -Ulcer Cleansing Rinsed/ Irrigated with Saline -Foul Odor after Cleansing No -Anesthetic Used 4% Lidocaine Solution [Edema Assessment] -Right Calf (cm) 28.4 -Right Ankle (cm) 19.6 WC - Nurse 2 - General Ulcer CM Notes Start: 09/16/17 09:37 Freq: Status: Active Protocol: Activity Type Activity Date Activity User E-Sign Co-Sign Detail Recorded Client Recorded Date Recorded By Document 09/23/17 10:18 TM [id number] 09/23/17 10:19 TM 09/23/17 10:18 Wound Center Nurse 2 [Procedure/Treatment] #2 R Heel -Time 10:18 -Correct Patient Yes -Correct Side, Site, Position Yes -Correct Procedure Yes -Procedure Performed Yes -Type of Procedure Debridement -Clinical Debridement Subcutaneous -Post Debridement Size (cm) - Length 1.3 -Post Debridement Size (cm) - Width 1.6 -Post Debridement Size (cm) - Depth 0.1 -Total Square Cm 2.08 -Wound/Ulcer Outcome Not Healed -Ulcer Cleansing Rinsed/ Irrigated with Saline -Foul Odor after Cleansing No -Bioengineered Tissue No -Topical Lidocaine (%) 4 -Bleeding Controlled with Pressure -Treatment Response Procedure Tolerated Well [See Physician Procedure note for Specifics] Pain Scale: 0-10 Numeric [Pain] -Is Patient Pain Free? Yes Musculoskeletal: No Tenderness to Palpation of Joints or Extremities, Muscle Wasting Neurological: - - Lack of epicritic sensation light touch to foot right Psych/Mental Status: Normal Affect, Appropriate Debridement Note Post-Debridement Measurements/Treatment - Nurse 2 - General Ulcer CM Notes Start: 09/16/17 09:37 Freq: Status: Active Protocol: Activity Type Activity Date Activity User E-Sign Co-Sign Detail Recorded Client Recorded Date Recorded By Document 09/16/17 09:59 TM [id number] 09/16/17 10:00 TM Document 09/23/17 10:18 TM [id number] 09/23/17 10:19 TM 09/16/17 09/23/17 09:59 10:18 Wound Center Nurse 2 #2 R Heel -Time 09:59 10:18 -Correct Patient Yes Yes -Correct Side, Site, Position Yes Yes -Correct Procedure Yes Yes -Procedure Performed Yes Yes -Type of Procedure Debridement Debridement -Clinical Debridement Subcutaneous Subcutaneous -Post Debridement Size (cm) - Length 0.9 1.3 -Post Debridement Size (cm) - Width 2.9 1.6 -Post Debridement Size (cm) - Depth 0.1 0.1 -Total Square Cm 2.61 2.08 -Wound/Ulcer Outcome Not Healed Not Healed -Ulcer Cleansing Rinsed/ Rinsed/ Irrigated with Irrigated with Saline Saline -Foul Odor after Cleansing No No -Bioengineered Tissue No No -Topical Lidocaine (%) 4 4 -Bleeding Controlled with Pressure Pressure -Treatment Response Procedure Procedure Tolerated Well Tolerated Well Pain Scale: 0-10 Numeric Is Patient Pain Free? Yes Yes Wound debrided: heel Laterality: Right Wound Grade/Stage: grade 3 Type of Debridement: Excisional debridement Anesthesia Used: 4% Lidocaine Solution Depth: in the subcutaneous layer Percentage of wound debrided: 100 Instrument Used: #15 blade Tissue Removed: fibrous, devitalized subcutaneous, biofilm, slough Severity: Fat Layer Exposed Amount of bleeding with debridement: Mild Bleeding Controlled with: Pressure Patient tolerated procedure well Assessment/Plan Assessment: grade 3 ulcer right heel. Diabetes with peripheral neuropathy. Peripheral vascular disease. Gait impairment. Malnutrition suspected. Other comorbidities. On anticoagulation chronic use Plan: I reviewed and discussed his case. Debridement was performed in the clinical panel. Offloading measures were implemented, in particular with respect to the right heel ulceration, which appears to be pressure-related and further complicated with diabetes and lack of arterial perfusion. To continue to offload by hanging heel over a pillow to float in the air. He did get the recommended offload device; donut pillow. A prescription for Gregorio was provided and he continues to take this twice daily. A noninvasive lower extremity arterial study in which right monophasic artery was noted. The ABIs were not calculated due to noncompressibility and it looks like he has vascular disease. He saw Dr. Vincent previously who recommends monitoring the situation. He defers advanced wound care product, epi fix and further hyperbaric oxygen therapy progression at this time due to cost. Ev and gauze dressing was applied today following his debridment. . The dressing is to be changed daily. All questions were answered to the patient's satisfaction. He is to return to the wound care center in 1 week or sooner if there are any questions or concerns.
[2017-09-30 09:31] VITALS: BP 108/65; PULSE 57; RESP 16; TEMP 35.9
--- NOTE | 2017-09-30 11:09 | PCM.WC.PN ---
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 Right heel ulcer History of Wound: This is an 82-year-old male who is a resident of [facility] in [place], [place]. The patient is deconditioned, and nonambulatory. He denies fever, chill, nausea, vomiting, odor, or redness. He denies pain. He continues to wear offloading devices to both lower extremities. His pain is significantly reduced. Progress of Wound: Improving - Physical Exam Vital Signs Temp Pulse Resp BP 96.6 F L 57 L 16 108/65 09/30/17 09:31 09/30/17 09:31 09/30/17 09:31 09/30/17 09:31 General: Alert, Oriented x3, Cooperative Extremities: No cyanosis, Capillary Refill Less than 3 Seconds, No Calf Tenderness - Negative Gordo and Vera signs right lower extremity, Diminished Peripheral Pulses, Edema - Mild Skin: Ulcer/ Wound - No purulence, erythema, streaking, odor, or infection. Peripheral skin is atrophic and hairless Wound Measurements and Assessment WC - Nurse 1 - General Ulcer Measurement Start: 09/16/17 09:37 Freq: Status: Active Protocol: Activity Type Activity Date Activity User E-Sign Co-Sign Detail Recorded Client Recorded Date Recorded By Document 09/30/17 09:31 [email or web address] [id number] 09/30/17 09:37 MARCI 09/30/17 09:31 Wound Center Nurse 1 [Ulcer Assessment] #2 R Heel -Combined with other wound No -Current Size (cm) - Length 1.0 -Current Size (cm) - Width 1.2 -Current Size (cm) - Depth 0.1 -Total Square Cm 1.20 -Photo Taken No -Epithelialization Small 1-33% -Tunneling No -Undermining/Tunneling No -Circular Undermining No -Exudate Amt Small (1-33%) -Exudate Type Serosanguineous -Wound Margin Flat & Intact -Granulation Amt Large (67-100%) -Granulation Quality [place] -Slough/Fibrin Yes -Necrosis Amt Small (1-33%) -Necrotic Tissue Type Adherent Slough -Structure Exposed N/A -Texture (Abi-wound Skin Appearance) Assessed Scarring -Moisture (Abi-wound Skin Appearance Assessed ) Dry/Scaly -Color (Abi-wound Skin Appearance) Assessed -Temperature (Abi-wound Skin No Abnormality Appearance) (Pt Warm) -Tenderness on Palpation (Abi-wound No Skin Appearance) -Ulcer Cleansing Wound Cleanser -Foul Odor after Cleansing No -Anesthetic Used 5% Lidocaine Gel [Edema Assessment] -Lower Limb Edema Present Yes -Right Calf (cm) 28.4 -Right Ankle (cm) 19.8 WC - Nurse 2 - General Ulcer CM Notes Start: 09/16/17 09:37 Freq: Status: Active Protocol: Activity Type Activity Date Activity User E-Sign Co-Sign Detail Recorded Client Recorded Date Recorded By Document 09/30/17 09:52 [id number] 09/30/17 09:54 09/30/17 09:52 Wound Center Nurse 2 [Procedure/Treatment] #2 R Heel -Time 09:53 -Correct Patient Yes -Correct Side, Site, Position Yes -Correct Procedure Yes -Procedure Performed Yes -Type of Procedure Debridement -Clinical Debridement Subcutaneous -Post Debridement Size (cm) - Length 1.1 -Post Debridement Size (cm) - Width 1.3 -Post Debridement Size (cm) - Depth 0.1 -Total Square Cm 1.43 -Wound/Ulcer Outcome Not Healed -Ulcer Cleansing Rinsed/ Irrigated with Saline -Foul Odor after Cleansing No -Bioengineered Tissue No -Topical Lidocaine (%) 5 -Bleeding Controlled with Pressure -Treatment Response Procedure Tolerated Well [See Physician Procedure note for Specifics] Pain Scale: 0-10 Numeric [Pain] -Is Patient Pain Free? Yes Musculoskeletal: No Tenderness to Palpation of Joints or Extremities, Muscle Wasting, Tenderness - No pain with wound manipulation today Neurological: - - Diminished sensation to light touch wound and periwound right heel Psych/Mental Status: Normal Affect, Appropriate Debridement Note Post-Debridement Measurements/Treatment WC - Nurse 2 - General Ulcer CM Notes Start: 09/16/17 09:37 Freq: Status: Active Protocol: Activity Type Activity Date Activity User E-Sign Co-Sign Detail Recorded Client Recorded Date Recorded By Document 09/16/17 09:59 [id number] 09/16/17 10:00 TM Document 09/23/17 10:18 TM [id number] 09/23/17 10:19 TM Document 09/30/17 09:52 TM [id number] 09/30/17 09:54 TM 09/16/17 09/23/17 09/30/17 09:59 10:18 09:52 Wound Center Nurse 2 #2 R Heel -Time 09:59 10:18 09:53 -Correct Patient Yes Yes Yes -Correct Side, Site, Position Yes Yes Yes -Correct Procedure Yes Yes Yes -Procedure Performed Yes Yes Yes -Type of Procedure Debridement Debridement Debridement -Clinical Debridement Subcutaneous Subcutaneous Subcutaneous -Post Debridement Size (cm) - Length 0.9 1.3 1.1 -Post Debridement Size (cm) - Width 2.9 1.6 1.3 -Post Debridement Size (cm) - Depth 0.1 0.1 0.1 -Total Square Cm 2.61 2.08 1.43 -Wound/Ulcer Outcome Not Healed Not Healed Not Healed -Ulcer Cleansing Rinsed/ Rinsed/ Rinsed/ Irrigated with Irrigated with Irrigated with Saline Saline Saline -Foul Odor after Cleansing No No No -Bioengineered Tissue No No No -Topical Lidocaine (%) 4 4 5 -Bleeding Controlled with Pressure Pressure Pressure -Treatment Response Procedure Procedure Procedure Tolerated Well Tolerated Well Tolerated Well Pain Scale: 0-10 Numeric Is Patient Pain Free? 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 Diabetes with peripheral neuropathy. Peripheral vascular disease. Gait impairment. Malnutrition suspected. Other comorbidities. On anticoagulation chronic use Plan: I reviewed and discussed his case. Debridement was performed in the clinical panel. Offloading measures were implemented, in particular with respect to the right heel ulceration, which appears to be pressure-related and further complicated with diabetes and lack of arterial perfusion. To continue to offload by hanging heel over a pillow to float in the air. He did get the recommended offload device; donut pillow. A prescription for Gregorio was provided and he continues to take this twice daily. A noninvasive lower extremity arterial study in which right monophasic artery was noted. The ABIs were not calculated due to noncompressibility and it looks like he has vascular disease. He saw Dr. Vincent previously who recommends monitoring the situation. He defers advanced wound care product, epi fix and further hyperbaric oxygen therapy progression at this time due to cost. Ev and gauze dressing was applied today following his debridment. . The dressing is to be changed daily. All questions were answered to the patient's satisfaction. He is to return to the wound care center in 1 week or sooner if there are any questions or concerns.
[2017-10-07 09:25] VITALS: BP 116/62; PULSE 54; RESP 16; TEMP 35.8
--- NOTE | 2017-10-07 10:55 | PCM.WC.PN ---
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 Right heel ulcer History of Wound: This is an 82-year-old male who is a resident of [facility] in [place], [place]. The patient is deconditioned, and nonambulatory. He denies fever, chill, nausea, vomiting, odor, or redness. He denies pain. He continues to wear offloading devices to both lower extremities. His pain is significantly reduced. Progress of Wound: Improving - Physical Exam Vital Signs Temp Pulse Resp BP 96.4 F L 54 L 16 116/62 10/07/17 09:25 10/07/17 09:25 10/07/17 09:25 10/07/17 09:25 General: Alert, Oriented x3, Cooperative Extremities: No cyanosis, Capillary Refill Less than 3 Seconds, No Calf Tenderness - Negative Gordo and Vera right, Diminished Peripheral Pulses, Edema - Mild right lower extremity Skin: Ulcer/ Wound - No purulence, no erythema, streaking, no odor, no infection. Peripheral skin is atrophic and hairless. Wound Measurements and Assessment WC - Nurse 1 - General Ulcer Measurement Start: 09/16/17 09:37 Freq: Status: Active Protocol: Activity Type Activity Date Activity User E-Sign Co-Sign Detail Recorded Client Recorded Date Recorded By Document 10/07/17 09:25 [email or web address] [id number] 10/07/17 09:36 MARCI 10/07/17 09:25 Wound Center Nurse 1 [Ulcer Assessment] #2 R Heel -Combined with other wound No -Current Size (cm) - Length 1.1 -Current Size (cm) - Width 0.8 -Current Size (cm) - Depth 0.1 -Total Square Cm 0.88 -Photo Taken No -Epithelialization None Present -Tunneling No -Undermining/Tunneling No -Circular Undermining No -Exudate Amt Small (1-33%) -Exudate Type Serosanguineous -Wound Margin Distinct, Outline Attached -Granulation Amt Medium (34-66%) -Granulation Quality Red -Slough/Fibrin Yes -Necrosis Amt Small (1-33%) -Necrotic Tissue Type Adherent Slough -Texture (Abi-wound Skin Appearance) Scarring -Moisture (Abi-wound Skin Appearance Dry/Scaly ) -Color (Abi-wound Skin Appearance) Assessed -Temperature (Abi-wound Skin No Abnormality Appearance) (Pt Warm) -Tenderness on Palpation (Abi-wound No Skin Appearance) -Ulcer Cleansing Rinsed/ Irrigated with Saline -Foul Odor after Cleansing No -Anesthetic Used 4% Lidocaine Solution WC - Nurse 2 - General Ulcer CM Notes Start: 09/16/17 09:37 Freq: Status: Active Protocol: Activity Type Activity Date Activity User E-Sign Co-Sign Detail Recorded Client Recorded Date Recorded By Document 10/07/17 09:45 [id number] 10/07/17 09:45 10/07/17 09:45 Wound Center Nurse 2 [Procedure/Treatment] -Time 09:45 -Correct Patient Yes -Correct Side, Site, Position Yes -Correct Procedure Yes -Procedure Performed Yes -Type of Procedure Debridement -Clinical Debridement Subcutaneous -Post Debridement Size (cm) - Length 1.2 -Post Debridement Size (cm) - Width 0.9 -Post Debridement Size (cm) - Depth 0.1 -Total Square Cm 1.08 -Wound/Ulcer Outcome Not Healed -Ulcer Cleansing Rinsed/ Irrigated with Saline -Foul Odor after Cleansing No -Bioengineered Tissue No -Bleeding Controlled with Pressure -Treatment Response Procedure Tolerated Well [See Physician Procedure note for Specifics] Pain Scale: 0-10 Numeric [Pain] -Is Patient Pain Free? Yes Musculoskeletal: No Tenderness to Palpation of Joints or Extremities, Muscle Wasting Neurological: - - Lack of epicritic sensation light touch bilateral lower extremities Psych/Mental Status: Normal Affect, Appropriate Debridement Note Post-Debridement Measurements/Treatment WC - Nurse 2 - General Ulcer CM Notes Start: 09/16/17 09:37 Freq: Status: Active Protocol: Activity Type Activity Date Activity User E-Sign Co-Sign Detail Recorded Client Recorded Date Recorded By Document 09/16/17 09:59 [id number] 09/16/17 10:00 TM Document 09/23/17 10:18 [id number] 09/23/17 10:19 TM Document 09/30/17 09:52 [id number] 09/30/17 09:54 TM Document 10/07/17 09:45 [id number] 10/07/17 09:45 09/16/17 09/23/17 09/30/17 09:59 10:18 09:52 Wound Center Nurse 2 #2 R Heel -Time 09:59 10:18 09:53 -Correct Patient Yes Yes Yes -Correct Side, Site, Position Yes Yes Yes -Correct Procedure Yes Yes Yes -Procedure Performed Yes Yes Yes -Type of Procedure Debridement Debridement Debridement -Clinical Debridement Subcutaneous Subcutaneous Subcutaneous -Post Debridement Size (cm) - Length 0.9 1.3 1.1 -Post Debridement Size (cm) - Width 2.9 1.6 1.3 -Post Debridement Size (cm) - Depth 0.1 0.1 0.1 -Total Square Cm 2.61 2.08 1.43 -Wound/Ulcer Outcome Not Healed Not Healed Not Healed -Ulcer Cleansing Rinsed/ Rinsed/ Rinsed/ Irrigated with Irrigated with Irrigated with Saline Saline Saline -Foul Odor after Cleansing No No No -Bioengineered Tissue No No No -Topical Lidocaine (%) 4 4 5 -Bleeding Controlled with Pressure Pressure Pressure -Treatment Response Procedure Procedure Procedure Tolerated Well Tolerated Well Tolerated Well Pain Scale: 0-10 Numeric Is Patient Pain Free? Yes Yes Yes 10/07/17 09:45 Wound Center Nurse 2 #2 R Heel -Time 09:45 -Correct Patient Yes -Correct Side, Site, Position Yes -Correct Procedure Yes -Procedure Performed Yes -Type of Procedure Debridement -Clinical Debridement Subcutaneous -Post Debridement Size (cm) - Length 1.2 -Post Debridement Size (cm) - Width 0.9 -Post Debridement Size (cm) - Depth 0.1 -Total Square Cm 1.08 -Wound/Ulcer Outcome Not Healed -Ulcer Cleansing Rinsed/ Irrigated with Saline -Foul Odor after Cleansing No -Bioengineered Tissue No -Topical Lidocaine (%) -Bleeding Controlled with Pressure -Treatment Response Procedure Tolerated Well Pain Scale: 0-10 Numeric Is Patient Pain Free? 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 Diabetes with peripheral neuropathy. Peripheral vascular disease. Gait impairment. Malnutrition suspected. Other comorbidities. On anticoagulation chronic use Plan: I reviewed and discussed his case. Debridement was performed in the clinical panel. Offloading measures were implemented, in particular with respect to the right heel ulceration, which appears to be pressure-related and further complicated with diabetes and lack of arterial perfusion. To continue to offload by hanging heel over a pillow to float in the air. He did get the recommended offload device; donut pillow. A prescription for Gregorio was provided and he continues to take this twice daily. A noninvasive lower extremity arterial study in which right monophasic artery was noted. The ABIs were not calculated due to noncompressibility and it looks like he has vascular disease. He saw Dr. Vincent previously who recommends monitoring the situation. He defers advanced wound care product, epi fix and further hyperbaric oxygen therapy progression at this time due to cost. Ev and gauze dressing was applied today following his debridment. . The dressing is to be changed daily. All questions were answered to the patient's satisfaction. He is to return to the wound care center in 1 week or sooner if there are any questions or concerns.
[2017-10-14 10:45] VITALS: BP 120/59; PULSE 64; RESP 18; TEMP 36.4
--- NOTE | 2017-10-14 12:13 | PCM.WC.PN ---
(1) Ulcer of right foot with fat layer exposed Status: Chronic Current Visit: Yes Code(s): L97.512 - Non-pressure chronic ulcer of other part of right foot with fat layer exposed (2) Type 2 diabetes mellitus with diabetic polyneuropathy Status: Chronic Current Visit: Yes Code(s): E11.42 - Type 2 diabetes mellitus with diabetic polyneuropathy (3) Malnutrition Status: Chronic Current Visit: Yes Code(s): E46 - Unspecified protein-calorie malnutrition Type of Wound Date of Service: 10/14/17 Chief Complaint: . Right heel ulcer History of Wound: This is an 82-year-old male who is a resident of [facility] in [place], [place]. The patient is deconditioned, and nonambulatory. He denies fever, chill, nausea, vomiting, odor, or redness. He denies pain. He continues to wear offloading devices to both lower extremities. His pain is significantly reduced. Progress of Wound: Improving - Physical Exam Vital Signs Temp Pulse Resp BP 97.5 F L 64 18 120/59 L 10/14/17 10:45 10/14/17 10:45 10/14/17 10:45 10/14/17 10:45 General: Alert, Oriented x3, Cooperative Extremities: No cyanosis, Capillary Refill Less than 3 Seconds, No Calf Tenderness - Negative Gordo and Vera right, Diminished Peripheral Pulses, Edema - Mild right lower extremity Skin: Ulcer/ Wound - No purulence, no erythema, streaking, odor, no acute signs of infection right. There is continued peripheral epithelialization. There is a very scant increase in peripheral inflammation noted without infection. There is no deep tissue exposure noted. The peripheral skin is atrophic. Wound Measurements and Assessment WC - Nurse 1 - General Ulcer Measurement Start: 09/16/17 09:37 Freq: Status: Active Protocol: Activity Type Activity Date Activity User E-Sign Co-Sign Detail Recorded Client Recorded Date Recorded By Document 10/14/17 10:45 DL [id number] 10/14/17 10:49 DL 10/14/17 10:45 Wound Center Nurse 1 [Ulcer Assessment] #2 R Heel -Current Size (cm) - Length 0.9 -Current Size (cm) - Width 0.7 -Current Size (cm) - Depth 0.1 -Total Square Cm 0.63 -Photo Taken No -Exudate Amt Small (1-33%) -Exudate Type Serosanguineous -Wound Margin Indistinct, Non -Visible -Granulation Amt Large (67-100%) -Granulation Quality Red -Necrosis Amt Small (1-33%) -Necrotic Tissue Type Adherent Slough -Structure Exposed N/A -Texture (Abi-wound Skin Appearance) Friable -Moisture (Bai-wound Skin Appearance No Abnormality ) -Color (Abi-wound Skin Appearance) No Abnormality -Temperature (Abi-wound Skin No Abnormality Appearance) (Pt Warm) -Ulcer Cleansing Rinsed/ Irrigated with Saline -Foul Odor after Cleansing No -Anesthetic Used 4% Lidocaine Solution [Edema Assessment] -Right Calf (cm) 28.2 -Right Ankle (cm) 19.6 WC - Nurse 2 - General Ulcer CM Notes Start: 09/16/17 09:37 Freq: Status: Active Protocol: Activity Type Activity Date Activity User E-Sign Co-Sign Detail Recorded Client Recorded Date Recorded By Document 10/14/17 11:39 [id number] 10/14/17 11:40 10/14/17 11:39 Wound Center Nurse 2 [Procedure/Treatment] #2 R Heel -Time 11:39 -Correct Patient Yes -Correct Side, Site, Position Yes -Correct Procedure Yes -Procedure Performed Yes -Type of Procedure Debridement -Clinical Debridement Subcutaneous -Post Debridement Size (cm) - Length 1 -Post Debridement Size (cm) - Width 0.8 -Post Debridement Size (cm) - Depth 0.1 -Total Square Cm 0.8 -Wound/Ulcer Outcome Not Healed -Ulcer Cleansing Rinsed/ Irrigated with Saline -Foul Odor after Cleansing No -Bioengineered Tissue No -Bleeding Controlled with Pressure -Treatment Response Procedure Tolerated Well [See Physician Procedure note for Specifics] Pain Scale: 0-10 Numeric [Pain] -Is Patient Pain Free? Yes Musculoskeletal: No Tenderness to Palpation of Joints or Extremities, Muscle Wasting Neurological: - - Lack of normal epicritic sensation light touch right lower extremity Psych/Mental Status: Normal Affect, Appropriate Debridement Note Post-Debridement Measurements/Treatment - Nurse 2 - General Ulcer CM Notes Start: 09/16/17 09:37 Freq: Status: Active Protocol: Activity Type Activity Date Activity User E-Sign Co-Sign Detail Recorded Client Recorded Date Recorded By Document 09/16/17 09:59 [id number] 09/16/17 10:00 Document 09/23/17 10:18 [id number] 09/23/17 10:19 Document 09/30/17 09:52 [id number] 09/30/17 09:54 Document 10/07/17 09:45 [id number] 10/07/17 09:45 Document 10/14/17 11:39 [id number] 10/14/17 11:40 09/16/17 09/23/17 09/30/17 09:59 10:18 09:52 Wound Center Nurse 2 #2 R Heel -Time 09:59 10:18 09:53 -Correct Patient Yes Yes Yes -Correct Side, Site, Position Yes Yes Yes -Correct Procedure Yes Yes Yes -Procedure Performed Yes Yes Yes -Type of Procedure Debridement Debridement Debridement -Clinical Debridement Subcutaneous Subcutaneous Subcutaneous -Post Debridement Size (cm) - Length 0.9 1.3 1.1 -Post Debridement Size (cm) - Width 2.9 1.6 1.3 -Post Debridement Size (cm) - Depth 0.1 0.1 0.1 -Total Square Cm 2.61 2.08 1.43 -Wound/Ulcer Outcome Not Healed Not Healed Not Healed -Ulcer Cleansing Rinsed/ Rinsed/ Rinsed/ Irrigated with Irrigated with Irrigated with Saline Saline Saline -Foul Odor after Cleansing No No No -Bioengineered Tissue No No No -Topical Lidocaine (%) 4 4 5 -Bleeding Controlled with Pressure Pressure Pressure -Treatment Response Procedure Procedure Procedure Tolerated Well Tolerated Well Tolerated Well Pain Scale: 0-10 Numeric Is Patient Pain Free? Yes Yes Yes 10/07/17 10/14/17 09:45 11:39 Wound Center Nurse 2 #2 R Heel -Time 09:45 11:39 -Correct Patient Yes Yes -Correct Side, Site, Position Yes Yes -Correct Procedure Yes Yes -Procedure Performed Yes Yes -Type of Procedure Debridement Debridement -Clinical Debridement Subcutaneous Subcutaneous -Post Debridement Size (cm) - Length 1.2 1 -Post Debridement Size (cm) - Width 0.9 0.8 -Post Debridement Size (cm) - Depth 0.1 0.1 -Total Square Cm 1.08 0.8 -Wound/Ulcer Outcome Not Healed Not Healed -Ulcer Cleansing Rinsed/ Rinsed/ Irrigated with Irrigated with Saline Saline -Foul Odor after Cleansing No No -Bioengineered Tissue No No -Topical Lidocaine (%) -Bleeding Controlled with Pressure Pressure -Treatment Response Procedure Procedure Tolerated Well Tolerated Well Pain Scale: 0-10 Numeric Is Patient Pain Free? 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 Diabetes with peripheral neuropathy. Peripheral vascular disease. Gait impairment. Malnutrition suspected. Other comorbidities. On anticoagulation chronic use Plan: I reviewed and discussed his case. Debridement was performed in the clinical panel. Offloading measures were implemented, in particular with respect to the right heel ulceration, which appears to be pressure-related and further complicated with diabetes and lack of arterial perfusion. To continue to offload by hanging heel over a pillow to float in the air. He did get the recommended offload device; donut pillow. Compliance was discussed and he has a mild increase in inflammation periwound site and he is reminded strict offloading as needed for wound healing. A prescription for Gregorio was provided and he continues to take this twice daily. A noninvasive lower extremity arterial study in which right monophasic artery was noted. The ABIs were not calculated due to noncompressibility and it looks like he has vascular disease. He saw Dr. Vincent previously who recommends monitoring the situation. He defers advanced wound care product, epi fix and further hyperbaric oxygen therapy progression at this time due to cost. Ev and gauze dressing was applied today following his debridment. . The dressing is to be changed daily. All questions were answered to the patient's satisfaction. He is to return to the wound care center in 1 week or sooner if there are any questions or concerns.
== END 2017-10-16 23:59 ==
LOC: WC 10:00
PROVIDERS: Family Provider Family Medicine; PCP Family Medicine; Visit Provider Podiatrist
DX: E11.621 Type 2 diabetes mellitus with foot ulcer (principal); E11.42 Type 2 diabetes mellitus with diabetic polyneuropathy; L97.512 Non-pressure chronic ulcer of other part of right foot with fat layer exposed; E11.51 Type 2 diabetes mellitus with diabetic peripheral angiopathy without gangrene
CPT/HCPCS: 11042

== ENCOUNTER 2017-11-11 10:15 | Outpatient (RCR) | payer MEDICARE, MEDICAID, SELFPAY ==
[2017-10-17 00:51] VITALS: BP 120/59; PULSE 64; RESP 18; TEMP 36.4
[2017-10-21 11:21] VITALS: BP 112/56; PULSE 59; RESP 16; TEMP 36.6
--- NOTE | 2017-10-21 14:59 | PCM.WC.PN ---
(1) Ulcer of right foot with fat layer exposed Status: Chronic Current Visit: Yes Code(s): L97.512 - Non-pressure chronic ulcer of other part of right foot with fat layer exposed (2) Type 2 diabetes mellitus with diabetic polyneuropathy Status: Chronic Current Visit: Yes Code(s): E11.42 - Type 2 diabetes mellitus with diabetic polyneuropathy (3) Malnutrition Status: Chronic Current Visit: Yes Code(s): E46 - Unspecified protein-calorie malnutrition Type of Wound Date of Service: 10/21/17 Chief Complaint: . Right heel ulcer History of Wound: This is an 82-year-old male who is a resident of [facility] in [place], [place]. The patient is deconditioned, and nonambulatory. He denies fever, chill, nausea, vomiting, odor, or redness. He denies pain. He continues to wear offloading devices to both lower extremities. Progress of Wound: Improving - Physical Exam Vital Signs Temp Pulse Resp BP 98 F 59 L 16 112/56 L 10/21/17 11:21 10/21/17 11:21 10/21/17 11:21 10/21/17 11:21 General: Alert, Oriented x3, Cooperative Extremities: No cyanosis, Capillary Refill Less than 3 Seconds, No Calf Tenderness - Negative Gordo and Vera bilateral, Diminished Peripheral Pulses, Edema - Mild right lower extremity Skin: Ulcer/ Wound - No purulence, no erythema, streaking, no odor, no infection. No deep tissue exposed or eschar to the right heel ulcer site. Peripheral skin is atrophic and hairless Wound Measurements and Assessment WC - Nurse 1 - General Ulcer Measurement Start: 10/21/17 11:21 Freq: Status: Active Protocol: Activity Type Activity Date Activity User E-Sign Co-Sign Detail Recorded Client Recorded Date Recorded By Document 10/21/17 11:21 [facility] [id number] 10/21/17 11:28 [facility] 10/21/17 11:21 Wound Center Nurse 1 [Ulcer Assessment] #2 R Heel -Current Size (cm) - Length 1.2 -Current Size (cm) - Width 1.6 -Current Size (cm) - Depth 0.1 -Total Square Cm 1.92 -Photo Taken No -Epithelialization None Present -Tunneling No -Undermining/Tunneling No -Circular Undermining No -Exudate Amt Small (1-33%) -Exudate Type Serous -Wound Margin Distinct, Outline Attached -Granulation Amt Medium (34-66%) -Granulation Quality Red -Slough/Fibrin Yes -Necrosis Amt Medium (34-66%) -Necrotic Tissue Type Adherent Slough -Texture (Abi-wound Skin Appearance) Assessed Callus Scarring -Moisture (Abi-wound Skin Appearance Assessed ) Dry/Scaly -Color (Abi-wound Skin Appearance) No Abnormality Assessed -Temperature (Abi-wound Skin No Abnormality Appearance) (Pt Warm) -Tenderness on Palpation (Abi-wound No Skin Appearance) -Ulcer Cleansing Rinsed/ Irrigated with Saline -Foul Odor after Cleansing No -Anesthetic Used 4% Lidocaine Solution [Edema Assessment] -Right Calf (cm) 28 -Right Ankle (cm) 19.6 - Nurse 2 - General Ulcer CM Notes Start: 10/21/17 11:21 Freq: Status: Active Protocol: Activity Type Activity Date Activity User E-Sign Co-Sign Detail Recorded Client Recorded Date Recorded By Document 10/21/17 12:01 [id number] 10/21/17 12:02 [facility] 10/21/17 12:01 Wound Center Nurse 2 [Procedure/Treatment] #2 R Heel -Time 12:01 -Correct Patient Yes -Correct Side, Site, Position Yes -Correct Procedure Yes -Procedure Performed Yes -Type of Procedure Debridement -Clinical Debridement Subcutaneous -Post Debridement Size (cm) - Length 1.3 -Post Debridement Size (cm) - Width 1.6 -Post Debridement Size (cm) - Depth 0.1 -Total Square Cm 2.08 -Wound/Ulcer Outcome Not Healed -Ulcer Cleansing Rinsed/ Irrigated with Saline -Foul Odor after Cleansing No -Bioengineered Tissue No -Bleeding Controlled with Pressure -Treatment Response Procedure Tolerated Well [See Physician Procedure note for Specifics] Pain Scale: 0-10 Numeric [Pain] -Is Patient Pain Free? Yes Musculoskeletal: No Tenderness to Palpation of Joints or Extremities, Muscle Wasting, - - Compartments measuring soft right foot Neurological: - - Altered and decreased sensation light touch right foot Psych/Mental Status: Normal Affect, Appropriate Debridement Note Post-Debridement Measurements/Treatment - Nurse 2 - General Ulcer CM Notes Start: 10/21/17 11:21 Freq: Status: Active Protocol: Activity Type Activity Date Activity User E-Sign Co-Sign Detail Recorded Client Recorded Date Recorded By Document 10/21/17 12:01 [facility] [id number] 10/21/17 12:02 [facility] 10/21/17 12:01 Wound Center Nurse 2 #2 R Heel -Time 12:01 -Correct Patient Yes -Correct Side, Site, Position Yes -Correct Procedure Yes -Procedure Performed Yes -Type of Procedure Debridement -Clinical Debridement Subcutaneous -Post Debridement Size (cm) - Length 1.3 -Post Debridement Size (cm) - Width 1.6 -Post Debridement Size (cm) - Depth 0.1 -Total Square Cm 2.08 -Wound/Ulcer Outcome Not Healed -Ulcer Cleansing Rinsed/ Irrigated with Saline -Foul Odor after Cleansing No -Bioengineered Tissue No -Bleeding Controlled with Pressure -Treatment Response Procedure Tolerated Well Pain Scale: 0-10 Numeric Is Patient Pain Free? Yes Wound debrided: heel Laterality: Right Wound Grade/Stage: grade 3 Type of Debridement: Excisional debridement Anesthesia Used: 4% Lidocaine Solution Depth: in the subcutaneous layer Percentage of wound debrided: 100 Instrument Used: #15 blade Tissue Removed: fibrous, devitalized subcutaneous, biofilm, slough Severity: Fat Layer Exposed Amount of bleeding with debridement: Mild Bleeding Controlled with: Pressure Patient tolerated procedure well Assessment/Plan Active Problems Ulcer of right foot with fat layer exposed (Chronic) Type 2 diabetes mellitus with diabetic polyneuropathy (Chronic) Malnutrition (Chronic) Assessment: grade 3 ulcer right heel. Diabetes with peripheral neuropathy. Peripheral vascular disease. Gait impairment. Malnutrition suspected. Other comorbidities. On anticoagulation chronic use Plan: I reviewed and discussed his case. Debridement was performed in the clinical panel. Offloading measures were implemented, in particular with respect to the right heel ulceration, which appears to be pressure-related and further complicated with diabetes and lack of arterial perfusion. To continue to offload by hanging heel over a pillow to float in the air. He did get the recommended offload device; donut pillow. Compliance was discussed and he has a mild increase in inflammation periwound site and he is reminded strict offloading as needed for wound healing. A prescription for Gregorio was provided and he continues to take this twice daily. A noninvasive lower extremity arterial study in which right monophasic artery was noted. The ABIs were not calculated due to noncompressibility and it looks like he has vascular disease. He saw Dr. Vincent previously who recommends monitoring the situation. He defers advanced wound care product, epi fix and further hyperbaric oxygen therapy progression at this time due to cost. Ev and gauze dressing was applied today following his debridment. . The dressing is to be changed daily. All questions were answered to the patient's satisfaction. He is to return to the wound care center in 1 week or sooner if there are any questions or concerns.
[2017-10-28 10:57] VITALS: BP 134/58; PULSE 54; RESP 16; TEMP 35.9
--- NOTE | 2017-10-28 11:43 | PN.PCM_ITS ---
(1) Ulcer of right foot with fat layer exposed Status: Chronic Current Visit: Yes Code(s): L97.512 - Non-pressure chronic ulcer of other part of right foot with fat layer exposed (2) Type 2 diabetes mellitus with diabetic polyneuropathy Status: Chronic Current Visit: Yes Code(s): E11.42 - Type 2 diabetes mellitus with diabetic polyneuropathy (3) Malnutrition Status: Chronic Current Visit: Yes Code(s): E46 - Unspecified protein- calorie malnutrition Type of Wound Date of Service: 10/28/17 Chief Complaint: Right heel ulcer History of Wound: This is an 82-year-old male who is a resident of [facility], [place], operated by [facility] in [place], [place]. The patient is deconditioned, and nonambulatory. He denies fever, chill, nausea, vomiting, odor, or redness. He denies pain. He continues to wear offloading devices to both lower extremities. Progress of Wound: Improving - Physical Exam Vital Signs Temp Pulse Resp BP 96.6 F L 54 L 16 134/58 H 10/28/17 10:57 10/28/17 10:57 10/28/17 10:57 10/28/17 10:57 General: Alert, Oriented x3, Cooperative Extremities: No cyanosis, Capillary Refill Less than 3 Seconds, No Calf Tenderness, Diminished Peripheral Pulses Skin: Ulcer/ Wound - No purulence, no erythema, streaking, no odor, no infection. Peripheral skin is atrophic and there are significant peripheral epithelialization noted. The wound is very superficial and has some central subcutaneous tissue exposed Wound Measurements and Assessment WC - Nurse 1 - General Ulcer Measurement Start: 10/21/17 11:21 Freq: Status: Active Protocol: Activity Type Activity Date Activity User E-Sign Co-Sign Detail Recorded Client Recorded Date Recorded By Document 10/28/17 10:57 [facility] [id number] 10/28/17 11:06 [facility] 10/28/17 10:57 Wound Center Nurse 1 [Ulcer Assessment] #2 R Heel -Combined with other wound No -Current Size (cm) - Length 0.7 -Current Size (cm) - Width 1.5 -Current Size (cm) - Depth 0.2 -Total Square Cm 1.05 -Photo Taken No -Epithelialization None Present -Tunneling No -Undermining/Tunneling No -Circular Undermining No -Exudate Amt Small (1-33%) -Exudate Type Serosanguineous -Wound Margin Distinct, Outline Attached -Granulation Amt Large (67-100%) -Granulation Quality Red -Slough/Fibrin Yes -Necrosis Amt Small (1-33%) -Necrotic Tissue Type Adherent Slough -Texture (Abi-wound Skin Appearance) Scarring -Moisture (Abi-wound Skin Appearance Assessed ) Maceration -Color (Abi-wound Skin Appearance) Assessed Erythema Palor -Temperature (Abi-wound Skin No Abnormality Appearance) (Pt Warm) -Tenderness on Palpation (Abi-wound Yes Skin Appearance) -Ulcer Cleansing Rinsed/ Irrigated with Saline -Foul Odor after Cleansing No -Anesthetic Used 5% Lidocaine Gel [Edema Assessment] -Lower Limb Edema Present Yes -Right Calf (cm) 28.6 -Right Ankle (cm) 14.5 - Nurse 2 - General Ulcer CM Notes Start: 10/21/17 11:21 Freq: Status: Active Protocol: Activity Type Activity Date Activity User E-Sign Co-Sign Detail Recorded Client Recorded Date Recorded By Document 10/28/17 11:41 [id number] 10/28/17 11:41 10/28/17 11:41 Wound Center Nurse 2 [Procedure/Treatment] #2 R Heel -Time 11:41 -Correct Patient Yes -Correct Side, Site, Position Yes -Correct Procedure Yes -Procedure Performed Yes -Type of Procedure Debridement -Clinical Debridement Subcutaneous -Post Debridement Size (cm) - Length 0.7 -Post Debridement Size (cm) - Width 0.8 -Post Debridement Size (cm) - Depth 0.1 -Total Square Cm 0.56 -Wound/Ulcer Outcome Not Healed -Ulcer Cleansing Rinsed/ Irrigated with Saline -Foul Odor after Cleansing No -Bioengineered Tissue No -Bleeding Controlled with Pressure -Treatment Response Procedure Tolerated Well [See Physician Procedure note for Specifics] Pain Scale: 0-10 Numeric [Pain] -Is Patient Pain Free? Yes Musculoskeletal: No Tenderness to Palpation of Joints or Extremities, Muscle Wasting Neurological: - - lack of epicritic sensation via touch Psych/Mental Status: Normal Affect, Appropriate Debridement Note Post-Debridement Measurements/Treatment - Nurse 2 - General Ulcer CM Notes Start: 10/21/17 11:21 Freq: Status: Active Protocol: Activity Type Activity Date Activity User E-Sign Co-Sign Detail Recorded Client Recorded Date Recorded By Document 10/21/17 12:01 [id number] 10/21/17 12:02 Document 10/28/17 11:41 [id number] 10/28/17 11:41 10/21/17 10/28/17 12:01 11:41 Wound Center Nurse 2 #2 R Heel -Time 12:01 11:41 -Correct Patient Yes Yes -Correct Side, Site, Position Yes Yes -Correct Procedure Yes Yes -Procedure Performed Yes Yes -Type of Procedure Debridement Debridement -Clinical Debridement Subcutaneous Subcutaneous -Post Debridement Size (cm) - Length 1.3 0.7 -Post Debridement Size (cm) - Width 1.6 0.8 -Post Debridement Size (cm) - Depth 0.1 0.1 -Total Square Cm 2.08 0.56 -Wound/Ulcer Outcome Not Healed Not Healed -Ulcer Cleansing Rinsed/ Rinsed/ Irrigated with Irrigated with Saline Saline -Foul Odor after Cleansing No No -Bioengineered Tissue No No -Bleeding Controlled with Pressure Pressure -Treatment Response Procedure Procedure Tolerated Well Tolerated Well Pain Scale: 0-10 Numeric Is Patient Pain Free? Yes Yes Wound debrided: heel Laterality: Right Wound Grade/Stage: grade 3 Type of Debridement: Excisional debridement Anesthesia Used: 4% Lidocaine Solution Depth: in the subcutaneous layer Percentage of wound debrided: 100 Instrument Used: #15 blade Tissue Removed: fibrous, devitalized subcutaneous, biofilm, slough Severity: Fat Layer Exposed Amount of bleeding with debridement: Mild Bleeding Controlled with: Pressure Patient tolerated procedure well Assessment/Plan Active Problems Ulcer of right foot with fat layer exposed (Chronic) Type 2 diabetes mellitus with diabetic polyneuropathy (Chronic) Malnutrition (Chronic) Assessment: grade 3 ulcer right heel. Diabetes with peripheral neuropathy. Peripheral vascular disease. Gait impairment. Malnutrition suspected. Other comorbidities. On anticoagulation chronic use Plan: I reviewed and discussed his case. Debridement was performed in the clinical panel. Offloading measures were implemented, in particular with respect to the right heel ulceration, which appears to be pressure-related and further complicated with diabetes and lack of arterial perfusion. To continue to offload by hanging heel over a pillow to float in the air. He did get the recommended offload device; donut pillow. Compliance was discussed and he has a mild increase in inflammation periwound site and he is reminded strict offloading as needed for wound healing. A prescription for Gregorio was provided and he continues to take this twice daily. A noninvasive lower extremity arterial study in which right monophasic artery was noted. The ABIs were not calculated due to noncompressibility and it looks like he has vascular disease. He saw Dr. Vincent previously who recommends monitoring the situation. He defers advanced wound care product, epi fix and further hyperbaric oxygen therapy progression at this time due to cost. Ev and gauze dressing was applied today following his debridment. . The dressing is to be changed daily. All questions were answered to the patient's satisfaction. He is to return to the wound care center in 1 week or sooner if there are any questions or concerns.
[2017-11-04 10:40] VITALS: BP 121/53; PULSE 56; RESP 16; TEMP 36.3
--- NOTE | 2017-11-04 11:48 | PCM.WC.PN ---
(1) Ulcer of right foot with fat layer exposed Status: Chronic Current Visit: Yes Code(s): L97.512 - Non-pressure chronic ulcer of other part of right foot with fat layer exposed (2) Type 2 diabetes mellitus with diabetic polyneuropathy Status: Chronic Current Visit: Yes Code(s): E11.42 - Type 2 diabetes mellitus with diabetic polyneuropathy (3) Malnutrition Status: Chronic Current Visit: Yes Code(s): E46 - Unspecified protein-calorie malnutrition Type of Wound Date of Service: 11/04/17 Chief Complaint: Right heel ulcer History of Wound: This is an 82-year-old male who is a resident of [facility] in [place], [place]. The patient is deconditioned, and nonambulatory. He denies fever, chill, nausea, vomiting, odor, or redness. He denies pain. He continues to wear offloading devices to both lower extremities. Progress of Wound: Improving - Physical Exam Vital Signs Temp Pulse Resp BP 97.4 F L 56 L 16 121/53 H 11/04/17 10:40 11/04/17 10:40 11/04/17 10:40 11/04/17 10:40 General: Alert, Oriented x3, Cooperative Extremities: Capillary Refill Less than 3 Seconds, No Calf Tenderness, Diminished Peripheral Pulses, Edema Skin: Ulcer/ Wound - No purulence, no erythema, streaking, no odor, no infection. Continued peripheral epithelialization is noted. Wound Measurements and Assessment WC - Nurse 1 - General Ulcer Measurement Start: 10/21/17 11:21 Freq: Status: Active Protocol: Activity Type Activity Date Activity User E-Sign Co-Sign Detail Recorded Client Recorded Date Recorded By Document 11/04/17 10:40 DL [id number] 11/04/17 10:47 DL 11/04/17 10:40 Wound Center Nurse 1 [Ulcer Assessment] #2 R Heel -Current Size (cm) - Length 0.2 -Current Size (cm) - Width 0.2 -Current Size (cm) - Depth 0.1 -Total Square Cm 0.04 -Photo Taken No -Exudate Amt None Present (0 %) -Wound Margin Flat & Intact -Granulation Amt Large (67-100%) -Granulation Quality [place] -Necrosis Amt Small (1-33%) -Necrotic Tissue Type Adherent Slough -Structure Exposed N/A -Texture (Abi-wound Skin Appearance) Scarring -Moisture (Abi-wound Skin Appearance Maceration ) -Color (Abi-wound Skin Appearance) Rubor -Temperature (Abi-wound Skin No Abnormality Appearance) (Pt Warm) -Ulcer Cleansing Rinsed/ Irrigated with Saline -Foul Odor after Cleansing No -Anesthetic Used 4% Lidocaine Solution [Edema Assessment] -Right Calf (cm) 27 -Right Ankle (cm) 18.2 - Nurse 2 - General Ulcer CM Notes Start: 10/21/17 11:21 Freq: Status: Active Protocol: Activity Type Activity Date Activity User E-Sign Co-Sign Detail Recorded Client Recorded Date Recorded By Document 11/04/17 11:08 [id number] 11/04/17 11:09 11/04/17 11:08 Wound Center Nurse 2 [Procedure/Treatment] #2 R Heel -Time 11:09 -Correct Patient Yes -Correct Side, Site, Position Yes -Correct Procedure Yes -Procedure Performed Yes -Type of Procedure Debridement -Clinical Debridement Subcutaneous -Post Debridement Size (cm) - Length 0.3 -Post Debridement Size (cm) - Width 0.5 -Post Debridement Size (cm) - Depth 0.1 -Total Square Cm 0.15 -Wound/Ulcer Outcome Not Healed -Ulcer Cleansing Rinsed/ Irrigated with Saline -Foul Odor after Cleansing No -Bioengineered Tissue No -Bleeding Controlled with Pressure -Treatment Response Procedure Tolerated Well [See Physician Procedure note for Specifics] Pain Scale: 0-10 Numeric [Pain] -Is Patient Pain Free? Yes Musculoskeletal: No Tenderness to Palpation of Joints or Extremities, Muscle Wasting Neurological: - - Lack of epicritic sensation light touch Psych/Mental Status: Normal Affect, Appropriate Debridement Note Post-Debridement Measurements/Treatment - Nurse 2 - General Ulcer CM Notes Start: 10/21/17 11:21 Freq: Status: Active Protocol: Activity Type Activity Date Activity User E-Sign Co-Sign Detail Recorded Client Recorded Date Recorded By Document 10/21/17 12:01 [id number] 10/21/17 12:02 Document 10/28/17 11:41 [id number] 10/28/17 11:41 Document 11/04/17 11:08 [id number] 11/04/17 11:09 10/21/17 10/28/17 11/04/17 12:01 11:41 11:08 Wound Center Nurse 2 #2 R Heel -Time 12:01 11:41 11:09 -Correct Patient Yes Yes Yes -Correct Side, Site, Position Yes Yes Yes -Correct Procedure Yes Yes Yes -Procedure Performed Yes Yes Yes -Type of Procedure Debridement Debridement Debridement -Clinical Debridement Subcutaneous Subcutaneous Subcutaneous -Post Debridement Size (cm) - Length 1.3 0.7 0.3 -Post Debridement Size (cm) - Width 1.6 0.8 0.5 -Post Debridement Size (cm) - Depth 0.1 0.1 0.1 -Total Square Cm 2.08 0.56 0.15 -Wound/Ulcer Outcome Not Healed Not Healed Not Healed -Ulcer Cleansing Rinsed/ Rinsed/ Rinsed/ Irrigated with Irrigated with Irrigated with Saline Saline Saline -Foul Odor after Cleansing No No No -Bioengineered Tissue No No No -Bleeding Controlled with Pressure Pressure Pressure -Treatment Response Procedure Procedure Procedure Tolerated Well Tolerated Well Tolerated Well Pain Scale: 0-10 Numeric Is Patient Pain Free? Yes Yes Yes Wound debrided: heel Laterality: Right Type of Debridement: Excisional debridement Anesthesia Used: 4% Lidocaine Solution Depth: in the subcutaneous layer Percentage of wound debrided: 100 Instrument Used: #15 blade Tissue Removed: fibrous, devitalized subcutaneous, biofilm, slough Severity: Fat Layer Exposed Amount of bleeding with debridement: Mild Bleeding Controlled with: Pressure Patient tolerated procedure well Assessment/Plan Active Problems Ulcer of right foot with fat layer exposed (Chronic) Type 2 diabetes mellitus with diabetic polyneuropathy (Chronic) Malnutrition (Chronic) Assessment: grade 3 ulcer right heel. Diabetes with peripheral neuropathy. Peripheral vascular disease. Gait impairment. Malnutrition suspected. Other comorbidities. On anticoagulation chronic use Plan: I reviewed and discussed his case. Debridement was performed in the clinical panel. Offloading measures were implemented, in particular with respect to the right heel ulceration, which appears to be pressure-related and further complicated with diabetes and lack of arterial perfusion. To continue to offload by hanging heel over a pillow to float in the air. He did get the recommended offload device; donut pillow. I recommend taking extra precautions to avoid dressing injuries; it is noted he does have some non-blanchable skin to the dorsal right foot at the dressing site. He was reassured no new wounds or infection are noted. To continue Gregorio nutritional supplement twice daily. A noninvasive lower extremity arterial study in which right monophasic artery was noted. The ABIs were not calculated due to noncompressibility and it looks like he has vascular disease. He saw Dr. Vincent previously who recommends monitoring the situation. He defers advanced wound care product, epi fix and further hyperbaric oxygen therapy progression at this time due to cost. Ev and gauze dressing was applied today following his debridment. . The dressing is to be changed daily. All questions were answered to the patient's satisfaction. He is to return to the wound care center in 1 week or sooner if there are any questions or concerns.
[2017-11-11 10:15] VITALS: BP 118/54; PULSE 58; RESP 16; TEMP 36.6
--- NOTE | 2017-11-11 10:25 | WC ---
pt has skin irritation on R ant foot. pt states its from roll gauze rubbing.
--- NOTE | 2017-11-11 13:16 | PN.PCM_ITS ---
(1) Ulcer of right foot with fat layer exposed Status: Chronic Current Visit: Yes Code(s): L97.512 - Non-pressure chronic ulcer of other part of right foot with fat layer exposed (2) Type 2 diabetes mellitus with diabetic polyneuropathy Status: Chronic Current Visit: Yes Code(s): E11.42 - Type 2 diabetes mellitus with diabetic polyneuropathy (3) Malnutrition Status: Chronic Current Visit: Yes Code(s): E46 - Unspecified protein- calorie malnutrition Type of Wound Date of Service: 11/11/17 Chief Complaint: Right heel ulcer History of Wound: This is an 82-year-old male who is a resident of [facility] in [place], [place]. The patient is deconditioned, and nonambulatory. He denies fever, chill, nausea, vomiting, odor, or redness. He denies pain. He continues to wear offloading devices to both lower extremities. He denies drainage. He is in a wheel chair today. Progress of Wound: healed - Physical Exam Vital Signs Temp Pulse Resp BP 97.9 F 58 L 16 118/54 L 11/11/17 10:15 11/11/17 10:15 11/11/17 10:15 11/11/17 10:15 General: Alert, Oriented x3, Cooperative Extremities: No cyanosis, Capillary Refill Less than 3 Seconds, No Calf Tenderness, Diminished Peripheral Pulses, Edema - Mild Skin: Ulcer/ Wound - Full epithelialization is noted in the ulcer site is healed. The skin is atrophic and hairless and there is minimal skin peeling noted at the recently healed ulcer site. There is no infection or eschar. There are no other new ulcers or maceration noted Wound Measurements and Assessment WC - Nurse 1 - General Ulcer Measurement Start: 10/21/17 11:21 Freq: Status: Active Protocol: Activity Type Activity Date Activity User E-Sign Co-Sign Detail Recorded Client Recorded Date Recorded By Document 11/11/17 10:15 [id number] 11/11/17 10:26 RB 11/11/17 10:15 Wound Center Nurse 1 [Ulcer Assessment] #2 R Heel -Combined with other wound No -Current Size (cm) - Length 0.9 -Current Size (cm) - Width 0.4 -Current Size (cm) - Depth 0.1 -Total Square Cm 0.36 -Photo Taken No -Tunneling No -Undermining/Tunneling No -Circular Undermining No -Exudate Amt Small (1-33%) -Exudate Type Serosanguineous -Wound Margin Distinct, Outline Attached -Granulation Amt Large (67-100%) -Granulation Quality [place] -Slough/Fibrin Yes -Necrosis Amt Small (1-33%) -Necrotic Tissue Type Adherent Slough -Structure Exposed N/A -Texture (Abi-wound Skin Appearance) Callus -Moisture (Abi-wound Skin Appearance Assessed ) Maceration -Color (Abi-wound Skin Appearance) Assessed -Temperature (Abi-wound Skin No Abnormality Appearance) (Pt Warm) -Tenderness on Palpation (Abi-wound No Skin Appearance) -Ulcer Cleansing Rinsed/ Irrigated with Saline -Foul Odor after Cleansing No -Anesthetic Used 4% Lidocaine Solution [Edema Assessment] -Lower Limb Edema Present Yes -Right Calf (cm) 27.7 -Right Ankle (cm) 19.3 11/11/17 10:25 Wound Center by Zoraida De Dios pt has skin irritation on R ant foot. pt states its from roll gauze rubbing. Initialized on 11/11/17 10:25 - END OF NOTE WC - Nurse 2 - General Ulcer CM Notes Start: 10/21/17 11:21 Freq: Status: Active Protocol: Activity Type Activity Date Activity User E-Sign Co-Sign Detail Recorded Client Recorded Date Recorded By Document 11/11/17 10:34 [id number] 11/11/17 10:43 TM 11/11/17 10:34 Wound Center Nurse 2 [Procedure/Treatment] #2 R Heel -Time 10:39 -Correct Patient Yes -Correct Side, Site, Position Yes -Correct Procedure Yes -Procedure Performed Yes -Post Debridement Size (cm) - Length 0 -Post Debridement Size (cm) - Width 0 -Post Debridement Size (cm) - Depth 0 -Total Square Cm 0 -Wound/Ulcer Outcome Healed- Epithelialized -Ulcer Cleansing Rinsed/ Irrigated with Saline -Foul Odor after Cleansing No -Bioengineered Tissue No -Bleeding Controlled with NA -Treatment Response Procedure Tolerated Well [See Physician Procedure note for Specifics] Pain Scale: 0-10 Numeric [Pain] -Is Patient Pain Free? Yes Musculoskeletal: No Tenderness to Palpation of Joints or Extremities, Muscle Wasting Neurological: - - Lack of epicritic sensation light touch noted Psych/Mental Status: Normal Affect, Appropriate Debridement Note Post-Debridement Measurements/Treatment WC - Nurse 2 - General Ulcer CM Notes Start: 10/21/17 11:21 Freq: Status: Active Protocol: Activity Type Activity Date Activity User E-Sign Co-Sign Detail Recorded Client Recorded Date Recorded By Document 10/21/17 12:01 [id number] [id number] 10/21/17 12:02 JF Document 10/28/17 11:41 [id number] 10/28/17 11:41 JF Document 11/04/17 11:08 JF [id number] 11/04/17 11:09 JF Document 11/11/17 10:34 TM [id number] 11/11/17 10:43 TM 10/21/17 10/28/17 11/04/17 12:01 11:41 11:08 Wound Center Nurse 2 #2 R Heel -Time 12:01 11:41 11:09 -Correct Patient Yes Yes Yes -Correct Side, Site, Position Yes Yes Yes -Correct Procedure Yes Yes Yes -Procedure Performed Yes Yes Yes -Type of Procedure Debridement Debridement Debridement -Clinical Debridement Subcutaneous Subcutaneous Subcutaneous -Post Debridement Size (cm) - Length 1.3 0.7 0.3 -Post Debridement Size (cm) - Width 1.6 0.8 0.5 -Post Debridement Size (cm) - Depth 0.1 0.1 0.1 -Total Square Cm 2.08 0.56 0.15 -Wound/Ulcer Outcome Not Healed Not Healed Not Healed -Ulcer Cleansing Rinsed/ Rinsed/ Rinsed/ Irrigated with Irrigated with Irrigated with Saline Saline Saline -Foul Odor after Cleansing No No No -Bioengineered Tissue No No No -Bleeding Controlled with Pressure Pressure Pressure -Treatment Response Procedure Procedure Procedure Tolerated Well Tolerated Well Tolerated Well Pain Scale: 0-10 Numeric Is Patient Pain Free? Yes Yes Yes 11/11/17 10:34 Wound Center Nurse 2 #2 R Heel -Time 10:39 -Correct Patient Yes -Correct Side, Site, Position Yes -Correct Procedure Yes -Procedure Performed Yes -Type of Procedure -Clinical Debridement -Post Debridement Size (cm) - Length 0 -Post Debridement Size (cm) - Width 0 -Post Debridement Size (cm) - Depth 0 -Total Square Cm 0 -Wound/Ulcer Outcome Healed- Epithelialized -Ulcer Cleansing Rinsed/ Irrigated with Saline -Foul Odor after Cleansing No -Bioengineered Tissue No -Bleeding Controlled with NA -Treatment Response Procedure Tolerated Well Pain Scale: 0-10 Numeric Is Patient Pain Free? Yes Wound debrided: plantar heel Laterality: Left Wound Grade/Stage: grade 3 Type of Debridement: Excisional debridement Anesthesia Used: 4% Lidocaine Solution Depth: in the subcutaneous layer Percentage of wound debrided: 100 Instrument Used: #15 blade Tissue Removed: fibrous, devitalized subcutaneous, biofilm, slough Severity: Fat Layer Exposed Amount of bleeding with debridement: Mild Bleeding Controlled with: Pressure Patient tolerated procedure well Assessment/Plan Active Problems Ulcer of right foot with fat layer exposed (Chronic) Type 2 diabetes mellitus with diabetic polyneuropathy (Chronic) Malnutrition (Chronic) Assessment: grade 3 ulcer right heel. Diabetes with peripheral neuropathy. Peripheral vascular disease. Gait impairment. Malnutrition suspected. Other comorbidities. On anticoagulation chronic use Plan: I reviewed and discussed his case. No debridement was performed today because the ulcer site has healed and he is doing very well. To continue to offload by hanging heel over a pillow to float in the air until the skin remodels for at least 3 additional weeks. He did get the recommended offload device; donut pillow. He was advised to discontinue Gregorio and daily dressing changes because the ulcer site has healed. A previous noninvasive lower extremity arterial study in which right monophasic artery was noted. The ABIs were not calculated due to noncompressibility and it looks like he has vascular disease. He saw Dr. Vincent previously who recommends monitoring the situation. He is discharged from the wound healing center at this time and will follow up at the foot and ankle center in 1-2 months for palliative care and risk assessment.
== END 2017-11-15 23:59 ==
LOC: WC 10:15
PROVIDERS: Family Provider Family Medicine; PCP Family Medicine; Visit Provider Podiatrist
DX: E11.621 Type 2 diabetes mellitus with foot ulcer (principal); E11.42 Type 2 diabetes mellitus with diabetic polyneuropathy; L97.512 Non-pressure chronic ulcer of other part of right foot with fat layer exposed; E11.51 Type 2 diabetes mellitus with diabetic peripheral angiopathy without gangrene
CPT/HCPCS: 11042; 99213; G0463